=== PATIENT | female | born 1970 ===

== ENCOUNTER 2020-03-17 15:04 | Outpatient (REF) | payer OTHER, SELFPAY | END 2020-03-17 15:05 | disposition home or self-care (01) | LOC: HO.LAB 15:04 | PROVIDERS: Visit Provider Nurse Practitioner Family | DX: L08.9 Local infection of the skin and subcutaneous tissue, unspecified (principal); T14.8XXA Other injury of unspecified body region, initial encounter | CPT/HCPCS: 87071; 87077; 87186; 87205 ==

== ENCOUNTER 2020-03-17 15:14 | Outpatient (REF) | payer OTHER, SELFPAY ==
--- NOTE | 2020-03-17 15:22 | XR_ITS ---
EXAMINATION: Right middle finger CLINICAL INFORMATION: Injury to right middle finger. COMPARISON: None TECHNIQUE: 3 views of the right middle finger. FINDINGS: The bones and soft tissues are normal. No fracture. Alignment is anatomic. Joint spaces are maintained. No radiopaque foreign body. There is no air in the soft tissues. XR/XR finger RT min 2V IMPRESSION: Normal right middle digit.
== END 2020-03-17 15:15 | disposition home or self-care (01) ==
LOC: HO.HMGCX 15:14
PROVIDERS: PCP Nurse Practitioner Family; Visit Provider Nurse Practitioner Family
DX: L08.9 Local infection of the skin and subcutaneous tissue, unspecified (principal); T14.8XXA Other injury of unspecified body region, initial encounter
CPT/HCPCS: 73140

== ENCOUNTER 2020-03-31 10:51 | Outpatient (REF) | payer OTHER, SELFPAY ==
[2020-04-03 06:12] LABS: TS Negative Control Passed; TS Panel A 0; TS Panel B 0; TS Positive Control Passed; TSpotTB Negative (SeeBelow)
== END 2020-03-31 10:52 | disposition home or self-care (01) ==
LOC: HO.HMGCLDS 10:51
PROVIDERS: PCP Nurse Practitioner Family; Referring Provider Nurse Practitioner Family; Visit Provider Nurse Practitioner Family
DX: Z20.828 Contact with and (suspected) exposure to other viral communicable diseases (principal); Z11.1 Encounter for screening for respiratory tuberculosis
CPT/HCPCS: 86481; U0003

== ENCOUNTER → 2020-04-23 10:04 | Outpatient (BNVA) | payer OTHER, SELFPAY | PROVIDERS: PCP Nurse Practitioner Family; Visit Provider Urology | DX: R31.29 Other microscopic hematuria (principal); N20.0 Calculus of kidney | CPT/HCPCS: 52000; 99212 ==

== ENCOUNTER 2020-04-28 10:30 | Outpatient (REF) | payer OTHER, SELFPAY | END 2020-04-28 10:31 | disposition home or self-care (01) | LOC: HO.HMGCLDS 10:30 | PROVIDERS: PCP Nurse Practitioner Family; Visit Provider Internal Medicine | DX: Z20.828 Contact with and (suspected) exposure to other viral communicable diseases (principal) | CPT/HCPCS: C9803; U0003 ==

== ENCOUNTER → 2020-05-27 11:03 | Outpatient (BNVA) | payer OTHER, SELFPAY | PROVIDERS: PCP Nurse Practitioner Family; Visit Provider Physician Assistant | DX: Z76.89 Persons encountering health services in other specified circumstances (principal) ==

== ENCOUNTER 2020-05-29 13:19 | Outpatient (REF) | payer OTHER, SELFPAY | END 2020-05-29 13:20 | disposition home or self-care (01) | LOC: HO.HMGCLDS 13:19 | PROVIDERS: PCP Nurse Practitioner Family; Visit Provider Internal Medicine | DX: Z20.828 Contact with and (suspected) exposure to other viral communicable diseases (principal) | CPT/HCPCS: 36415; U0003 ==

== ENCOUNTER 2020-10-21 12:08 | Outpatient (REF) | payer OTHER, SELFPAY ==
[2020-10-21 14:42] LABS: Alanine Aminotransferase 9 U/L (0-31); Albumin Level 4.4 g/dL (3.5-5.0); Alkaline Phosphatase 124 U/L (39-117); Anion Gap 14 (12-20); Aspartate Amino Transferase 15 U/L (5-31); Bilirubin Total 0.2 mg/dL (0.0-1.0); Blood Urea Nitrogen 8 mg/dL (9-16); Calcium 9.6 mg/dL (8.4-10.2); Carbon Dioxide 25 mmol/L (22-29); Chloride 106 mmol/L (96-108); Cholesterol 207 mg/dL; Estimated Glomerular Filt Rate > 60; Glucose Fasting 88 mg/dL (60-99); HDL Cholesterol 46 mg/dL; LDL Cholesterol Calculated 108 mg/dl; Potassium 4.4 mmol/L (3.3-5.1); Sodium 141 mmol/L (135-145); Triglycerides 269 mg/dL
[2020-10-21 15:07] LABS: TSH reflex Free T4 0.96 uIU/mL (0.32-4.0)
[2020-10-23 23:57] LABS: TS Negative Control Passed; TS Panel A 0; TS Panel B 0; TS Positive Control Passed; TSpotTB Negative (SeeBelow)
== END 2020-10-21 12:09 | disposition home or self-care (01) ==
LOC: HO.HMGCLDS 12:08
PROVIDERS: PCP Nurse Practitioner Family; Visit Provider Nurse Practitioner Family
DX: E78.5 Hyperlipidemia, unspecified (principal); Z13.29 Encounter for screening for other suspected endocrine disorder; Z11.1 Encounter for screening for respiratory tuberculosis; Z01.84 Encounter for antibody response examination
CPT/HCPCS: 36415; 80053; 80061; 84443; 86481

== ENCOUNTER 2020-11-11 10:28 | Outpatient (REF) | payer OTHER, SELFPAY ==
[2020-11-11 14:32] LABS: Alanine Aminotransferase 8 U/L (0-31); Albumin Level 4.3 g/dL (3.5-5.0); Alkaline Phosphatase 114 U/L (39-117); Aspartate Amino Transferase 13 U/L (5-31); Bilirubin Direct < 0.2 mg/dL (0.0-0.5); Bilirubin Total 0.3 mg/dL (0.0-1.0); Gamma Glutamyl Transpeptidase 24 U/L (7-33); Total Protein 6.8 g/dL (6.5-8.0)
[2020-11-12 07:36] LABS: HBS Num1 14.92 mIU/mL (0-7.99); ~Hepatitis B Surface Antibody REACTIVE (Nonreactive)
[2020-11-12 09:57] LABS: Rubella IgG Antibody 6.18 Index
== END 2020-11-11 10:29 | disposition home or self-care (01) ==
LOC: HO.HMGCLDS 10:28
PROVIDERS: PCP Nurse Practitioner Family; Visit Provider Nurse Practitioner Family
DX: Z01.84 Encounter for antibody response examination (principal); R74.8 Abnormal levels of other serum enzymes; Z28.3 Underimmunization status
CPT/HCPCS: 36415; 80076; 82977; 86706; 86735; 86762; 86765; 86787

== ENCOUNTER 2020-12-31 | Outpatient (REF) | payer OTHER, SELFPAY | END 2020-12-31 00:01 | disposition home or self-care (01) | LOC: HO.LNP | PROVIDERS: Visit Provider Internal Medicine | DX: Z20.822 Contact with and (suspected) exposure to COVID-19 (principal) | CPT/HCPCS: U0003; U0005 ==

== ENCOUNTER 2021-01-24 11:22 | Inpatient (IN) | payer OTHER, SELFPAY ==
[2021-01-24] VITALS (10 sets, daily range): BP systolic 105–147; BP diastolic 52–80; PULSE 48–82; RESP 16–20; TEMP 36.4–37.1; O2SAT 97–100; BMI 22.6; BMI 23.4
--- NOTE | ~2021-01-24 | CT_ITS ---
EXAMINATION: CT ABDOMEN AND PELVIS WITH CONTRAST CLINICAL INFORMATION: Epigastric and RUQ pain, US Gallbladder unremarkable COMPARISON: 07/30/2019 TECHNIQUE: Multidetector volumetric imaging was performed from the superior aspect of the liver through the pubic symphysis following administration of 85 mL Omnipaque 300 intravenous contrast. Sagittal and coronal reformatted images were obtained on the technologist workstation.. This CT examination was performed using dose optimization techniques as appropriate, variously including the following: *Automated exposure control *Adjustment of mA and/or kV according to patient size (this includes techniques or standardized protocols for targeted exams where dose is matched to indication/reason for exam; i.e. extremities or head) *Use of iterative reconstruction technique DLP: 486 mGy-cm FINDINGS: LUNG BASES: Bibasilar dependent atelectasis LIVER, GALLBLADDER, AND BILIARY TREE: The liver is normal in size, shape, and attenuation. No focal hepatic lesion or biliary ductal dilatation is present. The gallbladder is unremarkable with no evidence of radiopaque gallstones, gallbladder wall thickening, or obvious pericholecystic inflammatory changes. PANCREAS: Markedly abnormal appearance to the uncinate process and pancreatic head region where there is significant surrounding inflammatory change and fluid. Focal pancreatitis would be suspected. Correlation with amylase and lipase recommended. There is a more normal appearance to the pancreatic body and tail I do not appreciate any pancreatic or biliary ductal dilatation. SPLEEN: Unremarkable. ADRENAL GLANDS: Unremarkable. KIDNEYS AND URETERS: The kidneys are normal in size, shape, and attenuation. No hydronephrosis, hydroureter, or calculi seen. No perinephric stranding. BLADDER: Unremarkable. GASTROINTESTINAL TRACT: The small and large bowel are unremarkable. The appendix is unremarkable. ABDOMINAL WALL: No significant hernia is appreciated. LYMPHOVASCULAR STRUCTURES: No lymphadenopathy. The aorta is unremarkable. PELVIC VISCERA: Unremarkable. OSSEOUS STRUCTURES: Unremarkable. CT/CT abdomen pelvis w con IMPRESSION: Soft tissue stranding in Pancreatic fluid in the region of the uncinate process and pancreatic head on the pancreas. Appearance is most likely due to focal pancreatitis in this location. Correlation with amylase and lipase levels recommended.
--- NOTE | ~2021-01-24 | US_ITS ---
EXAMINATION: US ABDOMEN LIMITED CLINICAL INFORMATION: Right upper quadrant pain. COMPARISON: Previous CT of the abdomen and pelvis July 2019 TECHNIQUE: Real-time imaging of the right upper quadrant abdominal viscera. FINDINGS: PANCREAS: The head and body the pancreas are normal. The tail is not well visualized due to bowel gas. LIVER: Normal. The liver is normal in size. The liver contour is normal. Parenchymal echogenicity is normal. No focal hepatic lesion. There is no intrahepatic biliary duct dilatation seen. GALLBLADDER: The gallbladder is normal in size. No gallstones are seen. There is ring down artifact of the anterior wall of the gallbladder suggestive of adenomyomatosis of the gallbladder wall. There is no pericholecystic fluid. COMMON BILE DUCT: Normal in caliber measuring 0.5 cm in diameter. RIGHT KIDNEY: There is a 9 mm cyst in the upper pole.. No hydronephrosis. No renal calculi.. The kidney measures 9.7 cm in maximum dimension. FREE FLUID: None. US/US abdomen limited IMPRESSION: Adenomyomatosis of the gallbladder wall. No gallstone seen. Small right renal cyst. Limited visualization of the tail the pancreas.
--- NOTE | ~2021-01-24 | XR_ITS ---
EXAMINATION: XR CHEST CLINICAL INFORMATION: Right rib pain COMPARISON: Previous chest and right rib x-rays July 2019 TECHNIQUE: Frontal view of the chest was obtained. FINDINGS: The cardiac and mediastinal contours are normal. The lungs are clear. There is no pleural effusion or pneumothorax. There is a mild curvature of the proximal and mid thoracic spine. Bony structures are otherwise unremarkable. XR/XR chest 1V IMPRESSION: No evidence for acute disease in the chest.
--- NOTE | 2021-01-24 11:41 | ECG_ITS ---
Test Reason : EPIGASTRIC Blood Pressure : / mmHG Vent. Rate : 048 BPM Atrial Rate : 048 BPM P-R Int : 148 ms QRS Dur : 074 ms QT Int : 432 ms P-R-T Axes : 053 060 063 degrees QTc Int : 385 ms Sinus bradycardia Otherwise normal ECG When compared with ECG of 30-JUL-2019 13:54, No significant change was found Referred By: Generic ED Physician Electronically Signed By:TOÑITO BAR
[2021-01-24 13:55] LABS: MANUAL DIFF FLAG NO
[2021-01-24 13:57] LABS: Glucose Urine UA NEG (NEG); Leukocyte Esterase Urine NEG (NEG); Nitrite Urine NEG (NEG); PH 5.5 (5.0-8.0); Specific Gravity - Urine 1.015 (1.005-1.025); Urine Blood 2+ (NEG); Urine Ketones NEG (NEG); Urine Protein NEG (NEG-TRACE)
[2021-01-24 13:58] LABS: Appearance Urine CLEAR; Color Urine YELLOW
[2021-01-24 14:01] LABS: Basophils Absolute Auto 0.1 X10*3/uL (0.0-0.2); Basophils Percent Auto 0.4 % (0-2); Eosinophils Absolute Auto 0.1 X10*3/uL (0.0-0.4); Eosinophils Percent Auto 0.5 % (0-4); Hematocrit 47.9 % (37-47); Imm Gran Abs Auto 0.03 X10*3/uL (0.00-0.03); Imm Gran Pct Auto 0.3 % (0.0-0.4); Lymphocytes Absolute Auto 3.3 X10*3/uL (1.2-4.9); Lymphocytes Percent Auto 29.9 % (20-40); Mean Corpuscular HGB Conc 33.4 g/dl (31.0-35.0); Mean Corpuscular Hemoglobin 29.9 pg (27.0-33.0); Mean Corpuscular Volume 89.5 fL (80-98); Mean Platelet Volume 10.7 fL (9.4-12.3); Monocytes Absolute Auto 0.6 X10*3/uL (0.1-1.2); Monocytes Percent Auto 4.9 % (2-11); Neutrophils Absolute Auto 7.1 X10*3/uL (2.0-8.3); Platelet Count 283 X10*3/uL (160-400); Red Blood Count 5.35 X10*6/uL (4.20-5.50); Red Cell Distribution Width 13.6 % (11.0-16.0); UPreg QC Valid YES; Urine Pregnancy NEGATIVE (NEGATIVE); White Blood Count 11.2 X10*3/uL (4.8-10.8)
[2021-01-24 14:05] LABS: WBC Urine 0 /HPF (0-4)
[2021-01-24 14:13] LABS: Anion Gap 14 (12-20); Blood Urea Nitrogen 8 mg/dL (9-16); Calcium 10.3 mg/dL (8.4-10.2); Carbon Dioxide 28 mmol/L (22-29); Chloride 105 mmol/L (96-108); Creatinine Clr Calc Pharmacy 81.9; Estimated Glomerular Filt Rate > 60; Glucose Random 97 mg/dL (60-115); Lipase 163 U/L (8-78); Magnesium 2.4 mg/dL (1.6-2.6); Potassium 4.3 mmol/L (3.3-5.1); Sodium 143 mmol/L (135-145)
[2021-01-24 14:19] LABS: Troponin-I High Sensitivity < 3.5 ng/L (<3.5-17.0)
--- NOTE | 2021-01-24 14:23 | ED.ABDPAIN ---
HPI - Abdominal Pain General Chief Complaint: Abdominal Pain Stated Complaint: CHEST PAIN Time Seen by Provider: 01/24/21 14:01 Source: patient Mode of arrival: ambulatory Limitations: no limitations History of Present Illness HPI narrative: 51-year-old female presents with epigastric pain and right upper quadrant pain for the past 4 days. Patient states she has had the same pain since August, and it comes and goes, but the pain has been constant for the last 4 days. The pain is worse with eating and with lying flat. She describes it as epigastric and right upper quadrant radiating to right shoulder. Patient has not been able to eat for the last 2 days, she has had 2 bouts of vomiting and diarrhea twice today. Reports the pain radiates to her right upper chest and head has been constant for the last 4 days She has had no belly surgeries, and is postmenopausal. She went to her primary today who sent her here. Both parents of pancreatic cancer in their early 60s. Patient has been afebrile. Patient states her watch has been alerting her to a low heart rate yesterday, and last night when she slept. She is not on any beta blockers and has never seen Cardiology. Patient does not drink alcohol, she has been sober for 15 years, she was an alcoholic MD elicited complaint: abdominal pain Pertinent past history: kidney stones Onset (ago): day(s) (4) Pain Consistency: constant Location: chest, epigastric and RUQ Severity: moderate Pain scale (0-10): 6 Quality: cramping and sharp Radiation: back Migration to: no migration Exacerbating factors: eating and other (Lying flat) Relieving factors: nothing Associated symptoms: nausea, vomiting and diarrhea Related Data Previous Rx's Medication Instructions Recorded clobetasol 0.05 % topical cream 1 applic TOPICAL BID 7 Days #15 g 03/29/20 cholecalciferol (vitamin D3) 50 50 mcg PO DAILY 90 Days #90 tab 05/29/20 mcg (2,000 unit) tablet clobetasol 0.05 % topical cream 1 appl TOPICAL BID 14 Days #15 g 05/29/20 albuterol sulfate 90 mcg/actuation 2 puff PO Q4H PRN #8.5 g 08/06/20 aerosol inhaler quetiapine 25 mg tablet 25 mg PO BID 90 Days #180 tab 08/06/20 quetiapine 300 mg tablet (Seroquel) 300 mg PO BEDTIME 90 Days #90 tab 08/06/20 omeprazole 20 mg capsule,delayed 20 mg PO DAILY #30 cap 10/14/20 release nicotine 21 mg/24 hr daily 1 patch TOPICAL DAILY #28 patch 10/27/20 transdermal patch nicotine 14 mg/24 hr daily 1 patch TRANSDERMAL DAILY 28 Days 01/19/21 transdermal patch #28 ea Allergies Allergy/AdvReac Type Severity Reaction Status Date / Time No Known Allergies Allergy Verified 01/24/21 11:33 [No Known Allergies*] Review of Systems Constitutional: Denies body ache(s), Denies chills, Reports fatigue, Denies fever(s), Reports headache(s), Reports malaise and Denies weakness Eyes: Denies blurry vision and Denies diplopia Denies dizziness, Denies otalgia, Reports headache(s), Reports sinus pain, Denies sinus pressure and Denies sore throat Cardiovascular: Reports chest pain, Reports Epigastric Pain, Denies syncope, Denies leg edema, Denies lightheadedness, Denies Loss of Consciousness, Denies palpitations and Denies dyspnea Comments: Slow heart rate Respiratory: Denies chest congestion, Denies cough and Denies dyspnea Gastrointestinal: Reports abdominal pain, Denies hematochezia, Denies constipation, Reports diarrhea, Reports nausea and Reports vomiting Comments: Unable to eat due to nausea and abdominal pain for 2 days Genitourinary: Denies abnormal vaginal bleeding, Denies hematuria, Denies urinary incontinence, Denies urinary hesitancy and Denies vaginal discharge Comments: Postmenopausal Musculoskeletal: Reports no additional musculoskeletal complaints Skin/Breast: Denies erythema and Denies rash Denies confusion, Denies dizziness, Denies syncope, Reports headache(s) and Denies weakness Psychiatric: Denies anxiety, Denies confusion and Denies depression Endocrine: Reports fatigue and Denies palpitations Physical Exam Vital Signs: Vital Signs: Last Vital Signs Temp 97.5 F 01/24/21 21:52 Pulse 57 01/24/21 21:52 Resp 20 01/24/21 21:57 BP 147/77 H 01/24/21 21:52 Pulse Ox 98 01/24/21 21:52 Body Mass Index 22.6 Const: General: alert and awake; No confusion Nutritional Appearance: well nourished Orientation/consciousness: patient oriented x3 and No confusion Limitations: no limitations HENMT: Head: Yes normal to inspection, Yes normocephalic and Yes atraumatic Ears: hearing grossly normal bilaterally, external ears normal, TM's normal bilaterally and EAC's normal General nose exam: Normal external nose present Face and sinus: Yes normal facial exam and Yes sinuses nontender Mouth: Normal oral and palatal mucosa present Throat: Yes posterior oropharynx normal Eyes: Conjunctivae: conjunctivae normal Pupils: Equal, round and reactive pupils present EOM: EOMs intact bilaterally Neck: Neck: Yes full ROM, Yes no lymphadenopathy and Yes supple Resp: Effort & Inspection: normal respiratory effort and able to speak in complete sentences Auscultation: clear to auscultation bilaterally, no crackles, no rales, no rhonchi and no wheezes Cardio: Rate: bradycardic Rhythm: regular rhythm Heart sounds: S1 normal heart sound present and S2 normal heart sound present GI: Inspection: Yes normal to inspection Palpation (GI): Soft to palpation, Tenderness to palpation present (GI) in the epigastrum, in the RUQ, Suárez's sign positive and with rebound tenderness, Guarding due to palpation present (GI) in the RUQ and other (epigastric) and not rigid Percussion: Yes normal to percussion Auscultation: Hypoactive bowel sounds present Rectal Exam - Female: deferred Skin: General skin exam: no rashes or lesions noted Neuro: General: patient oriented x3 and No confusion Cranial nerves: Yes Equal, round and reactive pupils present Extrem: General: Yes normal to inspection and Yes full ROM Psych: Appearance: grossly normal Affect: normal affect Attitude: cooperative Thought process: Normal thought process present Course Course Course Narrative: 51-year-old female presents with 4 days of epigastric and right upper quadrant pain, worse when she eats, pain radiates to her back. On exam, patient is afebrile but is bradycardic. Patient is tender and guarding in her epigastrium and right upper quadrant. EKG shows sinus Jason at a rate of 48. Negative troponin. BMP is significant for elevated calcium, I ordered liver panel to correct with albumin. White count of 11.2. Lipase 163. Chest x-ray is negative. Gave fluids, Zofran, morphine, will start with ultrasound of gallbladder, get liver function tests. If that is negative will proceed to CT abdomen pelvis to rule out pancreatitis. Reevaluation(s) Reevaluation #1: Calcium corrected is only 9.7. LFTs are normal, bilirubin normal, alk-phos elevated at 138. Ultrasound shows adenomyomatosis of the gallbladder wall. Got TSH due to sinus Jason, TSH is normal at 0.96. Will get CT abdomen pelvis. Ct abd/pelvis: Soft tissue stranding in ? Pancreatic fluid in the region of the uncinate process and pancreatic head on the pancreas. Appearance is most likely due to focal pancreatitis in this location. Correlation with amylase and lipase levels recommended. Will admit, as pt cannot eat and has pain MDM - Abdominal Pain Lab Data Result diagrams: 01/24/21 13:47 01/24/21 13:47 Labs: Lab Results 01/24/21 01/24/21 01/24/21 Range/Units 13:47 13:47 13:47 WBC 11.2 H (4.8-10.8) X10*3/uL RBC 5.35 (4.20-5.50) X10*6/uL Hgb 16.0 (12.0-16.0) g/dl Hct 47.9 H (37-47) % MCV 89.5 (80-98) fL MCH 29.9 (27.0-33.0) pg MCHC 33.4 (31.0-35.0) g/dl RDW 13.6 (11.0-16.0) % Plt Count 283 (160-400) X10*3/uL MPV 10.7 (9.4-12.3) fL Immature Gran % (Auto) 0.3 (0.0-0.4) % Neut % (Auto) 64.0 (45-73) % Lymph % (Auto) 29.9 (20-40) % [place] % (Auto) 4.9 (2-11) % Eos % (Auto) 0.5 (0-4) % Baso % (Auto) 0.4 (0-2) % Lymph # (Auto) 3.3 (1.2-4.9) X10*3/uL [place] # (Auto) 0.6 (0.1-1.2) X10*3/uL Eos # (Auto) 0.1 (0.0-0.4) X10*3/uL Baso # (Auto) 0.1 (0.0-0.2) X10*3/uL Abs Immat Gran (auto) 0.03 (0.00-0.03) X10*3/uL Absolute Neuts (auto) 7.1 (2.0-8.3) X10*3/uL Absolute Nucleated RBC 0.000 (0.0-0.012) X10*3/uL Nucleated RBC % (auto) 0.0 (0.0-0.2) /100WBC Sodium 143 (135-145) mmol/L Potassium 4.3 (3.3-5.1) mmol/L Chloride 105 (96-108) mmol/L Carbon Dioxide 28 (22-29) mmol/L Anion Gap 14 (12-20) BUN 8 L (9-16) mg/dL Creatinine 0.76 (0.5-1.4) mg/dL Estim Creat Clear Calc 81.9 Estimated GFR > 60 Random Glucose 97 (60-115) mg/dL Calcium 10.3 H D (8.4-10.2) mg/dL Magnesium 2.4 (1.6-2.6) mg/dL Total Bilirubin 0.4 (0.0-1.0) mg/dL Direct Bilirubin < 0.2 (0.0-0.5) mg/dL AST 15 (5-31) U/L ALT 10 (0-31) U/L Alkaline Phosphatase 138 H D (39-117) U/L Troponin I High Sens < 3.5 (<3.5-17.0) ng/L Total Protein 7.8 (6.5-8.0) g/dL Albumin 4.8 (3.5-5.0) g/dL Lipase 163 H (8-78) U/L TSH 0.96 (0.32-4.0) uIU/mL Urine Color Urine Appearance Urine pH (5.0-8.0) Ur Specific [place] (1.005-1.025) Urine Protein (NEG-TRACE) MG/DL Urine Glucose (UA) (NEG) MG/DL Urine Ketones (NEG) MG/DL Urine Blood (NEG) Urine Nitrite (NEG) Ur Leukocyte Esterase (NEG) Urine RBC (0) /HPF Urine WBC (0-4) /HPF Ur Squamous Epith Cells /LPF Urine Bacteria /LPF Urine Test (NEGATIVE) 01/24/21 01/24/21 Range/Units 13:47 13:47 WBC (4.8-10.8) X10*3/uL RBC (4.20-5.50) X10*6/uL Hgb (12.0-16.0) g/dl Hct (37-47) % MCV (80-98) fL MCH (27.0-33.0) pg MCHC (31.0-35.0) g/dl RDW (11.0-16.0) % Plt Count (160-400) X10*3/uL MPV (9.4-12.3) fL Immature Gran % (Auto) (0.0-0.4) % Neut % (Auto) (45-73) % Lymph % (Auto) (20-40) % [place] % (Auto) (2-11) % Eos % (Auto) (0-4) % Baso % (Auto) (0-2) % Lymph # (Auto) (1.2-4.9) X10*3/uL [place] # (Auto) (0.1-1.2) X10*3/uL Eos # (Auto) (0.0-0.4) X10*3/uL Baso # (Auto) (0.0-0.2) X10*3/uL Abs Immat Gran (auto) (0.00-0.03) X10*3/uL Absolute Neuts (auto) (2.0-8.3) X10*3/uL Absolute Nucleated RBC (0.0-0.012) X10*3/uL Nucleated RBC % (auto) (0.0-0.2) /100WBC Sodium (135-145) mmol/L Potassium (3.3-5.1) mmol/L Chloride (96-108) mmol/L Carbon Dioxide (22-29) mmol/L Anion Gap (12-20) BUN (9-16) mg/dL Creatinine (0.5-1.4) mg/dL Estim Creat Clear Calc Estimated GFR Random Glucose (60-115) mg/dL Calcium (8.4-10.2) mg/dL Magnesium (1.6-2.6) mg/dL Total Bilirubin (0.0-1.0) mg/dL Direct Bilirubin (0.0-0.5) mg/dL AST (5-31) U/L ALT (0-31) U/L Alkaline Phosphatase (39-117) U/L Troponin I High Sens (<3.5-17.0) ng/L Total Protein (6.5-8.0) g/dL Albumin (3.5-5.0) g/dL Lipase (8-78) U/L TSH (0.32-4.0) uIU/mL Urine Color YELLOW Urine Appearance CLEAR Urine pH 5.5 (5.0-8.0) Ur Specific [place] 1.015 (1.005-1.025) Urine Protein NEG (NEG-TRACE) MG/DL Urine Glucose (UA) NEG (NEG) MG/DL Urine Ketones NEG (NEG) MG/DL Urine Blood 2+ H (NEG) Urine Nitrite NEG (NEG) Ur Leukocyte Esterase NEG (NEG) Urine RBC 1-4 (0) /HPF Urine WBC 0 (0-4) /HPF Ur Squamous Epith Cells NONE /LPF Urine Bacteria NONE /LPF Urine Test NEGATIVE (NEGATIVE) ECG Data Interpretation: Sinus with a rate of 48. MO interval 148, QRS 74, QTC 385. Normal axis. No ST elevations or depressions, Discharge Plan Discharge Clinical Impression: Acute pancreatitis Qualifiers: Pancreatitis type: unspecified pancreatitis type Acute pancreatitis complication: unspecified Qualified Code(s): K85.90 - Acute pancreatitis without necrosis or infection, unspecified Patient Disposition: Admitted As Inpatient Interventions: Admission Worksheet (ED) Last Done: 01/24/21 21:44 Discharge Date/Time: 01/24/21 21:44 [facility] Past Medical History Medical History Encounter for screening colonoscopy Kidney stones Microscopic hematuria Screening for colon cancer Social History Social History (Updated 05/27/20 @ 12:06 by Stephanie Gandara PA-C) Household Members: Children Housing: Apartment Alcohol intake: never Patient Tobacco Use Status: Never used Tobacco Tobacco use type: Cigarette Cigarettes Per Day: 1 Use of substances other than those prescribed or required for medical reasons: No Advance Directives: Yes Advance Directives Information Provided: Yes Advance Directives on File: No Current occupational status: employed Current occupation: [employer]
[2021-01-24] MEDS: 0.9 % Sodium Chloride 1,000 ML 999 ML IV ×2 (15:03→19:19)
[2021-01-24] MEDS: ondansetron HCL 4 MG/2 ML VIAL IVPUSH (15:03)
[2021-01-24] MEDS: Morphine Sulfate 4 MG/ML CARTRIDGE IVPUSH ×2 (15:03→17:44)
[2021-01-24 15:30] LABS: Alanine Aminotransferase 10 U/L (0-31); Albumin Level 4.8 g/dL (3.5-5.0); Alkaline Phosphatase 138 U/L (39-117); Aspartate Amino Transferase 15 U/L (5-31); Bilirubin Direct < 0.2 mg/dL (0.0-0.5); Bilirubin Total 0.4 mg/dL (0.0-1.0); Total Protein 7.8 g/dL (6.5-8.0)
[2021-01-24 15:56] LABS: Thyroid Stimulating Hormone 0.96 uIU/mL (0.32-4.0)
[2021-01-24] MEDS: iohexoL 350 MG/ML 100 ML INFUS..BTL IV (18:06)
--- NOTE | 2021-01-24 19:28 | PM.IMHP ---
History of Present Illness Date of Service: 01/24/21 Chief Complaint: Abdominal pain 51-year-old female with a past medical history of hypothyroidism, tobacco dependence, onychomycosis, of abdominal pain. Patient reports that she has abdominal pain intermittently for some time but over the past few days it has been gradually worsening and not improving; associated nausea and vomiting. Denies any blood in the vomitus. Denies any diarrhea. Denies any fever chills cough. Denies any recent travel or sick contacts. Denies taking [id number] pain medications Denies drinking alcohol-sober for 15 years. Review of all other systems is negative except mentioned above ER course: Per ER team patient noted of epigastric tenderness; CT scan showed mild pancreatitis; elevated alk-phos; calcium was 10.3 ; triglycerides in October were 269'; Admitted to the hospital for further management [facility] Medical History Encounter for screening colonoscopy Kidney stones Microscopic hematuria Screening for colon cancer Social History (Updated 05/27/20 @ 12:06 by ANANYA ManciaC) Household Members: Children Housing: Apartment Alcohol intake: never Patient Tobacco Use Status: Never used Tobacco Tobacco use type: Cigarette Cigarettes Per Day: 1 Use of substances other than those prescribed or required for medical reasons: No Advance Directives: Yes Advance Directives Information Provided: Yes Advance Directives on File: No Current occupational status: employed 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[employer] Meds Allergies Allergy/AdvReac Type Severity Reaction Status Date / Time No Known Allergies Allergy Verified 01/24/21 11:33 [No Known Allergies*] Active Medications: Current Medications Generic Name Dose Route Start Last Admin Trade Name Freq PRN Reason Stop Dose Admin Acetaminophen 650 mg 01/24/21 19:25 Acetaminophen 325 Mg Tablet PO Q6H PRN Pain, Mild (Pain Scale 1-3) Hydromorphone HCl 0.5 mg 01/24/21 19:25 Hydromorphone Hcl 0.5 Mg/0.5 Ml Syringe IVPUSH Q4H PRN Pain, Severe (Pain Scale 7-10) Protocol Sodium Chloride 1,000 mls @ 999 mls/hr 01/24/21 19:00 01/24/21 19:19 Ns IV 01/24/21 20:00 999 mls/hr .Q1H1M MICHEL Administration Dextrose/Sodium Chloride 1,000 mls @ 100 mls/hr 01/24/21 19:30 D51/2ns IVCONT .Q10H MICHEL Melatonin 6 mg 01/24/21 19:25 Melatonin 3 Mg Tablet PO BEDTIME PRN Insomnia Senna 17.2 mg 01/24/21 19:25 Sennosides 8.6 Mg Tablet PO BEDTIME PRN Constipation Sodium Chloride 3 ml 01/25/21 00:00 0.9 % Sodium Chloride Flush 3 Ml Syringe IVFLUSH QSHIFT [facility] Physical Exam Vital Signs and Narrative: Vital Signs: Last Vital Signs Temp 98.1 F 01/24/21 19:20 Pulse 61 01/24/21 19:20 Resp 16 01/24/21 19:20 BP 133/52 L 01/24/21 19:20 Pulse Ox 99 01/24/21 19:20 Body Mass Index 22.6 Gen: Appears be in no acute distress HEENT: NCAT, Moist mucosa. Pulmonary: Vesicular breath sounds, fair air entry CVS: Normal S1-S2 Abdomen: BS+, Soft, tender in epigastrium; no guarding no rigidity Extremities: Warm well perfused Neuro: Alert and awake. Results Labs CBC and Chem 7: 01/24/21 13:47 01/24/21 13:47 Labs: Laboratory Results - last 24 hr 01/24/21 01/24/21 01/24/21 13:47 13:47 13:47 MCV 89.5 MCH 29.9 MCHC 33.4 RDW 13.6 Plt Count 283 MPV 10.7 Immature Gran % (Auto) 0.3 Neut % (Auto) 64.0 Lymph % (Auto) 29.9 [place] % (Auto) 4.9 Eos % (Auto) 0.5 Baso % (Auto) 0.4 Lymph # (Auto) 3.3 [place] # (Auto) 0.6 Eos # (Auto) 0.1 Baso # (Auto) 0.1 Abs Immat Gran (auto) 0.03 Absolute Neuts (auto) 7.1 Absolute Nucleated RBC 0.000 Nucleated RBC % (auto) 0.0 Anion Gap 14 Estim Creat Clear Calc 81.9 Estimated GFR > 60 Random Glucose 97 Calcium 10.3 H D Magnesium 2.4 Total Bilirubin 0.4 Direct Bilirubin < 0.2 AST 15 ALT 10 Alkaline Phosphatase 138 H D Troponin I High Sens < 3.5 Total Protein 7.8 Albumin 4.8 Lipase 163 H TSH 0.96 Urine Color Urine Appearance Urine pH Ur Specific [place] Urine Protein Urine Glucose (UA) Urine Ketones Urine Blood Urine Nitrite Ur Leukocyte Esterase Urine RBC Urine WBC Ur Squamous Epith Cells Urine Bacteria Urine Test 01/24/21 01/24/21 13:47 13:47 MCV MCH MCHC RDW Plt Count MPV Immature Gran % (Auto) Neut % (Auto) Lymph % (Auto) [place] % (Auto) Eos % (Auto) Baso % (Auto) Lymph # (Auto) [place] # (Auto) Eos # (Auto) Baso # (Auto) Abs Immat Gran (auto) Absolute Neuts (auto) Absolute Nucleated RBC Nucleated RBC % (auto) Anion Gap Estim Creat Clear Calc Estimated GFR Random Glucose Calcium Magnesium Total Bilirubin Direct Bilirubin AST ALT Alkaline Phosphatase Troponin I High Sens Total Protein Albumin Lipase TSH Urine Color YELLOW Urine Appearance CLEAR Urine pH 5.5 Ur Specific [place] 1.015 Urine Protein NEG Urine Glucose (UA) NEG Urine Ketones NEG Urine Blood 2+ H Urine Nitrite NEG Ur Leukocyte Esterase NEG Urine RBC 1-4 Urine WBC 0 Ur Squamous Epith Cells NONE Urine Bacteria NONE Urine Test NEGATIVE Imaging Radiologist's Impressions: Impressions Chest X-Ray 01/24/21 11:41 IMPRESSION: No evidence for acute disease in the chest. Abdomen Ultrasound 01/24/21 14:22 IMPRESSION: Adenomyomatosis of the gallbladder wall. No gallstone seen. Small right renal cyst. Limited visualization of the tail the pancreas. Abdomen/Pelvis CT 01/24/21 15:41 IMPRESSION: Soft tissue stranding in Pancreatic fluid in the region of the uncinate process and pancreatic head on the pancreas. Appearance is most likely due to focal pancreatitis in this location. Correlation with amylase and lipase levels recommended. Assessment and Plan (1) Acute pancreatitis: Qualifiers: Acute pancreatitis complication: unspecified Pancreatitis type: unspecified pancreatitis type Qualified Code(s): K85.90 - Acute pancreatitis without necrosis or infection, unspecified Status: Acute 51-year-old female with a past medical history of hypothyroidism, tobacco dependence, GERD presented to the emergency complaint of abdominal pain noted to have pancreatitis. Admitted for further management. Acute pancreatitis: Unclear etiology; but noted to have mildly elevated calcium of 10.3-the levels are to designate as the cause with her diagnosis of pancreatitis. Patient denies alcohol use-mentions she is sober for 15 years Pt reports pancreatic cancer in the family. Triglycerides were within the normal limits on recently Will also obtain tried with those levels again Noted a mildly elevated [id number]-[id number]-mdeno upper quadrant ultrasound showed adenomyomatosis of the gallbladder wall. Will consult Gastroenterology for further recommendations Pain control IV fluids Supportive care DVT prophylaxis: SCD boots Code status: Full code Quality Stroke Does the patient have a stroke diagnosis?: No VTE Prior VTE?: No VTE Risk Level:: Medical - moderate - high VTE Device Contraindication: N/A - Device Ordered VTE Drug Contraindication: Treatment Not Indicated
[2021-01-24 20:20] LABS: COVID-19 Test Negative (Negative); IDNOW Serial# 9DD0AD1C
[2021-01-24 21:21] LABS: Amylase 276 U/L (28-100)
[2021-01-24] MEDS: HYDROmorphone HCl 0.5 MG/0.5 ML SYRINGE IVPUSH (21:57)
[2021-01-24] MEDS: Dextrose 5 % and 0.45 % NaCl 1,000 ML 100 ML IVCONT (21:58)
[2021-01-24] MEDS: QUEtiapine Fumarate 300 MG TABLET PO (22:23)
[2021-01-25 03:01] VITALS: RESP 18
[2021-01-25] MEDS: HYDROmorphone HCl 0.5 MG/0.5 ML SYRINGE IVPUSH ×5 (03:01→22:46)
[2021-01-25 06:39] LABS: MANUAL DIFF FLAG NO
[2021-01-25] MEDS: Dextrose 5 % and 0.45 % NaCl 1,000 ML 100 ML IVCONT (06:42)
[2021-01-25 06:44] LABS: Basophils Percent Auto 0.5 % (0-2); Eosinophils Absolute Auto 0.2 X10*3/uL (0.0-0.4); Eosinophils Percent Auto 2.5 % (0-4); Hemoglobin 13.4 g/dl (12.0-16.0); Imm Gran Abs Auto 0.01 X10*3/uL (0.00-0.03); Imm Gran Pct Auto 0.2 % (0.0-0.4); Lymphocytes Absolute Auto 2.8 X10*3/uL (1.2-4.9); Lymphocytes Percent Auto 47.6 % (20-40); Mean Corpuscular HGB Conc 33.5 g/dl (31.0-35.0); Mean Corpuscular Hemoglobin 29.9 pg (27.0-33.0); Mean Corpuscular Volume 89.3 fL (80-98); Mean Platelet Volume 10.9 fL (9.4-12.3); Monocytes Absolute Auto 0.4 X10*3/uL (0.1-1.2); Monocytes Percent Auto 6.6 % (2-11); Neutrophils Absolute Auto 2.5 X10*3/uL (2.0-8.3); Neutrophils Percent Auto 42.6 % (45-73); Platelet Count 206 X10*3/uL (160-400); Red Blood Count 4.48 X10*6/uL (4.20-5.50); Red Cell Distribution Width 13.5 % (11.0-16.0); White Blood Count 5.9 X10*3/uL (4.8-10.8)
[2021-01-25 07:17] LABS: Cholesterol 163 mg/dL; HDL Cholesterol 32 mg/dL; LDL Cholesterol Calculated 108 mg/dl; Triglycerides 115 mg/dL
[2021-01-25 07:19] LABS: Magnesium 2.2 mg/dL (1.6-2.6)
[2021-01-25 07:30] LABS: Anion Gap 13 (12-20); Blood Urea Nitrogen 7 mg/dL (9-16); Carbon Dioxide 22 mmol/L (22-29); Chloride 113 mmol/L (96-108); Creatinine Clr Calc Pharmacy 85.3; Estimated Glomerular Filt Rate > 60; Glucose Random 97 mg/dL (60-115); Potassium 4.5 mmol/L (3.3-5.1); Sodium 143 mmol/L (135-145)
[2021-01-25 07:38] LABS: Calcium 8.8 mg/dL (8.4-10.2)
[2021-01-25 07:45] VITALS: BP 111/61; PULSE 68; RESP 16; TEMP 36.1; O2SAT 100
[2021-01-25] MEDS: 0.9 % Sodium Chloride Flush 3 ML SYRINGE IVFLUSH ×2 (08:56→20:29)
[2021-01-25] MEDS: Lactated Ringers 1,000 ML 150 ML IVCONT ×3 (08:56→20:29)
--- NOTE | 2021-01-25 11:10 | HO.PM.IMPN ---
Subjective Subjective Date of Service: 01/25/21 Interval History: a bit better, has some appetite, but still with sifnificant epigastric pain Cardiovascular Cardiovascular: Reports no additional cardiovascular complaints Respiratory Respiratory: Reports no additional respiratory complaints Physical Exam Vital Signs: Vital Signs: Last Vital Signs Temp 97 F 01/25/21 07:45 Pulse 68 01/25/21 07:45 Resp 16 01/25/21 07:45 BP 111/61 01/25/21 07:45 Pulse Ox 100 01/25/21 07:45 Body Mass Index 23.4 General: AO X 3, no acute distress Resp: CTA bilateral CVS: S1,S2,RRR GI: soft, epigastric tenderness, non distended Neuro: motor grossly intact Psych: appropriate affect Objective Data Active Medications Acetaminophen (Acetaminophen 325 Mg Tablet) 650 mg PO Q6H PRN PRN Reason: Pain, Mild (Pain Scale 1-3) Hydromorphone HCl (Hydromorphone Hcl 0.5 Mg/0.5 Ml Syringe) 0.5 mg IVPUSH Q4H PRN; Protocol PRN Reason: Pain, Severe (Pain Scale 7-10) Last Admin: 01/25/21 08:55 Dose: 0.5 mg Documented by: BLANCA Lactated Ringer's (Lr) 1,000 mls @ 150 mls/hr IVCONT .Q6H40M [facility] Last Admin: 01/25/21 08:56 Dose: 150 mls/hr Documented by: BROB Melatonin (Melatonin 3 Mg Tablet) 6 mg PO BEDTIME PRN PRN Reason: Insomnia Nicotine (Nicotine 14 Mg Patch.Td24) 14 mg TRANSDERMA DAILY [facility] Omeprazole (Omeprazole 20 Mg Capsule.Dr) 20 mg PO DAILY@0630 [facility] Quetiapine Fumarate (Quetiapine Fumarate 300 Mg Tablet) 300 mg PO BEDTIME [facility] Last Admin: 01/24/21 22:23 Dose: 300 mg Documented by: ANDERM Quetiapine Fumarate (Quetiapine Fumarate 25 Mg Tablet) 25 mg PO BID [facility] Senna (Sennosides 8.6 Mg Tablet) 17.2 mg PO BEDTIME PRN PRN Reason: Constipation Sodium Chloride (0.9 % Sodium Chloride Flush 3 Ml Syringe) 3 ml IVFLUSH QSHIFT [facility] Last Admin: 01/25/21 08:56 Dose: 3 ml Documented by: BLANCA Labs CBC & Chem 7: 01/25/21 05:35 01/25/21 05:35 Labs: Laboratory Results - last 24 hr 01/24/21 01/24/21 01/24/21 13:47 13:47 13:47 MCV 89.5 MCH 29.9 MCHC 33.4 RDW 13.6 Plt Count 283 MPV 10.7 Immature Gran % (Auto) 0.3 Neut % (Auto) 64.0 Lymph % (Auto) 29.9 [place] % (Auto) 4.9 Eos % (Auto) 0.5 Baso % (Auto) 0.4 Lymph # (Auto) 3.3 [place] # (Auto) 0.6 Eos # (Auto) 0.1 Baso # (Auto) 0.1 Abs Immat Gran (auto) 0.03 Absolute Neuts (auto) 7.1 Absolute Nucleated RBC 0.000 Nucleated RBC % (auto) 0.0 Anion Gap 14 Estim Creat Clear Calc 81.9 Estimated GFR > 60 Random Glucose 97 Calcium 10.3 H D Magnesium 2.4 Total Bilirubin 0.4 Direct Bilirubin < 0.2 AST 15 ALT 10 Alkaline Phosphatase 138 H D Troponin I High Sens < 3.5 Total Protein 7.8 Albumin 4.8 Triglycerides Cholesterol LDL Cholesterol, Calc HDL Cholesterol Amylase Lipase 163 H TSH 0.96 Urine Color Urine Appearance Urine pH Ur Specific [place] Urine Protein Urine Glucose (UA) Urine Ketones Urine Blood Urine Nitrite Ur Leukocyte Esterase Urine RBC Urine WBC Ur Squamous Epith Cells Urine Bacteria Urine Test COVID-19 ([facility]ARAT) COVID-19 Clin Com 01/24/21 01/24/21 01/24/21 13:47 13:47 19:33 MCV MCH MCHC RDW Plt Count MPV Immature Gran % (Auto) Neut % (Auto) Lymph % (Auto) [place] % (Auto) Eos % (Auto) Baso % (Auto) Lymph # (Auto) [place] # (Auto) Eos # (Auto) Baso # (Auto) Abs Immat Gran (auto) Absolute Neuts (auto) Absolute Nucleated RBC Nucleated RBC % (auto) Anion Gap Estim Creat Clear Calc Estimated GFR Random Glucose Calcium Magnesium Total Bilirubin Direct Bilirubin AST ALT Alkaline Phosphatase Troponin I High Sens Total Protein Albumin Triglycerides Cholesterol LDL Cholesterol, Calc HDL Cholesterol Amylase Lipase TSH Urine Color YELLOW Urine Appearance CLEAR Urine pH 5.5 Ur Specific [place] 1.015 Urine Protein NEG Urine Glucose (UA) NEG Urine Ketones NEG Urine Blood 2+ H Urine Nitrite NEG Ur Leukocyte Esterase NEG Urine RBC 1-4 Urine WBC 0 Ur Squamous Epith Cells NONE Urine Bacteria NONE Urine Test NEGATIVE COVID-19 ([facility]ARAT) Negative COVID-19 Clin Com See Note 01/24/21 01/25/21 01/25/21 20:52 05:35 05:35 MCV 89.3 MCH 29.9 MCHC 33.5 RDW 13.5 Plt Count 206 D MPV 10.9 Immature Gran % (Auto) 0.2 Neut % (Auto) 42.6 L Lymph % (Auto) 47.6 H [place] % (Auto) 6.6 Eos % (Auto) 2.5 Baso % (Auto) 0.5 Lymph # (Auto) 2.8 [place] # (Auto) 0.4 Eos # (Auto) 0.2 Baso # (Auto) 0.0 Abs Immat Gran (auto) 0.01 Absolute Neuts (auto) 2.5 Absolute Nucleated RBC 0.000 Nucleated RBC % (auto) 0.0 Anion Gap 13 Estim Creat Clear Calc 85.3 Estimated GFR > 60 Random Glucose 97 Calcium 8.8 D Magnesium Total Bilirubin Direct Bilirubin AST ALT Alkaline Phosphatase Troponin I High Sens Total Protein Albumin Triglycerides Cholesterol LDL Cholesterol, Calc HDL Cholesterol Amylase 276 H Lipase TSH Urine Color Urine Appearance Urine pH Ur Specific [place] Urine Protein Urine Glucose (UA) Urine Ketones Urine Blood Urine Nitrite Ur Leukocyte Esterase Urine RBC Urine WBC Ur Squamous Epith Cells Urine Bacteria Urine Test COVID-19 (BHARAT) COVID-19 Clin Com 01/25/21 01/25/21 05:35 05:35 MCV MCH MCHC RDW Plt Count MPV Immature Gran % (Auto) Neut % (Auto) Lymph % (Auto) [place] % (Auto) Eos % (Auto) Baso % (Auto) Lymph # (Auto) [place] # (Auto) Eos # (Auto) Baso # (Auto) Abs Immat Gran (auto) Absolute Neuts (auto) Absolute Nucleated RBC Nucleated RBC % (auto) Anion Gap Estim Creat Clear Calc Estimated GFR Random Glucose Calcium Magnesium 2.2 Total Bilirubin Direct Bilirubin AST ALT Alkaline Phosphatase Troponin I High Sens Total Protein Albumin Triglycerides 115 Cholesterol 163 D LDL Cholesterol, Calc 108 HDL Cholesterol 32 D Amylase Lipase TSH Urine Color Urine Appearance Urine pH Ur Specific [place] Urine Protein Urine Glucose (UA) Urine Ketones Urine Blood Urine Nitrite Ur Leukocyte Esterase Urine RBC Urine WBC Ur Squamous Epith Cells Urine Bacteria Urine Test COVID-19 ([facility]ARAT) COVID-19 Clin Com Assessment and Plan (1) Acute pancreatitis: Status: Acute Assessment and Plan: 51F presented with epigastric pain acute pancreatitis unclear etiology advance to low fat change fluids to LR pain control GI eval Quality Stroke Does the patient have a stroke diagnosis?: No VTE Prior VTE?: No VTE Risk Level:: Medical - moderate - high VTE Device Contraindication: N/A - Device Ordered VTE Drug Contraindication: Treatment Not Indicated
[2021-01-25 11:18] VITALS: BP 110/62; PULSE 47; RESP 16; TEMP 36.1; O2SAT 99
[2021-01-25] MEDS: Nicotine 14 MG PATCH.TD24 TRANSDERMA (11:24)
--- NOTE | 2021-01-25 13:29 | P.EN_ITS ---
Event Note Date of Service: 01/25/21 Event Note: GI Consult-Full note dictated Imp: 51 yo female with a distant hx of EtOH abuse with a reported 15 years of sobriety presenting with approx 6 months of intermittent abdominal pain. She is now admitted with worsening and persistent pain with the finding of acute hicks creatitis on CT. She appears well but is still having pain and tenderness after trying to eat earlier today. Aside from tenderness, her abdominal exam is soft with good BS and nondistended. Her w/u is negative for gallstones and biliary disease. She has a normal TG level and is on no meds that would cause pancreatitis. She reports that both parents had pancreatic cancer in their 60's. Diff dx: R/O autoimmune pancreatitis-labs are already pending for that, R/O tumor Rec: Supportive care, make NPO again until symptoms resolve, check F/U lipase in AM, and check CA 19-9 level. I advised her that she will need a F/U CT scan in 4-6 weeks to be sure there is no underlying mass in the head of the pancreas. She may need an eventual Endoscopic U/S of the pancreas. D/W patient in detail and she is comfortable with this plan. Thanks
--- NOTE | 2021-01-25 13:31 | MHC.CM.PN ---
CM MET WITH PT WHO REPORTS SHE LIVES ALONE AND IS INDEPENDENT. PT HAS NO SERVICES AND NO DME. PT CONFIRMS HER PCP IS KADY NICOLE. PT COMPLETED A HCP TODAY NAMING HER SONS, MARZENA ([phone]) AND VLAD ([phone]) HER PRIMARY AND ALTERNATE AGENTS RESPECTIVELY. CURRENT DC PLAN IS HOME WITH NO SERVICES PT WILL SELF ARRANGE TRANSPORT
[2021-01-25 15:14] VITALS: BP 107/68; PULSE 72; RESP 18; TEMP 36.6; O2SAT 98
--- NOTE | 2021-01-25 19:32 | CONS_ITS ---
DATE OF SERVICE: 01/25/2021 REASON FOR CONSULTATION: Pancreatitis. HISTORY OF PRESENT ILLNESS: The patient is a 51-year-old female who describes approximately 5 or 6 months of intermittent episodes of abdominal pain involving the epigastric area that can last for several days at a time. During this time, she gets anorectic and has some vomiting. She denies any signs of GI bleeding. During this time, her weight has fluctuated by about 10 to 20 pounds. She has never noticed any jaundice nor fevers. The episodes occur about once a week. In between the episodes, she reports that she did not really have any pain and is able to eat more comfortably. She developed worsening pain earlier this week and finally came to the ER. She was found to have mild elevation of her lipase with inflammatory changes in the region of the head of the pancreas and was admitted. Overnight and today she still has epigastric pain, particularly after trying to eat today. She has not had a bowel movement and has had no further vomiting. She does relate a distant history of alcohol abuse, but reports sobriety for about 15 years now. She is not on any new medication and takes only Seroquel for depression. She does relate a family history of both parents having had pancreatic cancer in their 60s. Her workup has also revealed normal triglyceride levels and normal gallbladder ultrasound with normal bile ducts. MEDICATIONS: Medications at home, vitamins and Seroquel. Her current medications here include acetaminophen, Dilaudid p.r.n., nicotine patch, omeprazole, Zofran p.r.n., and Seroquel. PAST MEDICAL HISTORY: Tubal ligation, alcohol abuse with sobriety for 15 years. She denies any preceding history of pancreatitis, heart disease, diabetes, stroke, lung disease, or kidney disease. She does have a history of depression. SOCIAL HISTORY: She does smoke. Distant history of alcohol abuse as above with sobriety for 15 years. FAMILY HISTORY: Both parents had reported pancreatic cancer in her 60s. REVIEW OF SYSTEMS: CONSTITUTIONAL: She has been feeling well, but has had the intermittent episodes of abdominal pain as described above. SKIN: No rash, no pruritus. CARDIAC: No chest pain. PULMONARY: No coughing, no hemoptysis. GI: As above. PHYSICAL EXAMINATION: CONSTITUTIONAL: Again, the patient is a pleasant, alert, comfortable well-appearing female, in no distress. SKIN: Warm and dry. HEENT: Nonjaundiced. Anicteric sclerae. NECK: Supple. CHEST: Clear. CARDIAC: Normal S1 and S2. ABDOMEN: Soft and nondistended. Bowel sounds are present. She does have epigastric tenderness to palpation. EXTREMITIES: Without edema. LABORATORY DATA: As above. Normal CBC with a white blood cell count of 5.9 today compared to 11.2 yesterday; hemoglobin 13.4 today, compared to 16.0 yesterday. Normal electrolytes; BUN creatinine 0.7. Triglyceride level 115. Amylase 276 yesterday and lipase 163 yesterday. Normal TSH. LFTs were normal except for alkaline phosphatase 138. Calcium 10.3 yesterday and 8.8 today. She had a CAT scan of the abdomen describing inflammatory changes in the uncinate process and pancreatic head with some associated fluid, but without any sign of cyst, necrosis, nor pancreatic ductal dilatation. The liver and biliary tree appeared normal. Abdominal ultrasound was negative for gallstones nor biliary disease. Common bile duct was 5 mm. IMPRESSION: The patient presents with what appears to be acute pancreatitis although has been having intermittent pain for about 5 or 6 months now. The etiology of this is not clear given no sign of gallstones, normal bile ducts, and reported sobriety for about 15 years. She is not on any suspicious medication and has a normal triglyceride level. She does report a family history of both parents having had pancreatic cancer. At this point, given her ongoing pain and tenderness, I would recommend she be made n.p.o. again. She will have followup laboratories in the morning. Once her pain resolves and the lipase normalizes, then I would recommend slowly advance her to diet. She will clearly need a followup CAT scan in 4-6 weeks to be sure there is no underlying mass given the otherwise negative workup for the pancreatitis and her significant family history of both parents having a colon cancer. She has already had laboratories sent for autoimmune pancreatitis with IgG level and subtyping pending. Given the family history and no clear etiology of the pancreatitis, I have ordered a CA-19-9 level for the morning. She may ultimately need an eventual endoscopic ultrasound of the pancreas as well if the workup is negative, and/or the followup CAT scan shows any suspicious lesion. This has been discussed with the patient in detail. MD KEYONA Velazquez/JANE / [id number]
[2021-01-25] MEDS: QUEtiapine Fumarate 25 MG TABLET PO (20:28)
[2021-01-25] MEDS: QUEtiapine Fumarate 300 MG TABLET PO (20:28)
[2021-01-25] MEDS: ondansetron HCL 4 MG/2 ML VIAL IVPUSH (20:29)
[2021-01-25 23:59] VITALS: BP 95/52; PULSE 56; RESP 18; TEMP 37; O2SAT 98
[2021-01-26] MEDS: Lactated Ringers 1,000 ML 150 ML IVCONT ×3 (05:05→17:59)
[2021-01-26] MEDS: HYDROmorphone HCl 0.5 MG/0.5 ML SYRINGE IVPUSH (05:06)
[2021-01-26] MEDS: Omeprazole 20 MG CAPSULE.DR PO (05:06)
[2021-01-26 06:18] LABS: Hematocrit 39.6 % (37-47); Hemoglobin 13.7 g/dl (12.0-16.0); Mean Corpuscular HGB Conc 34.6 g/dl (31.0-35.0); Mean Corpuscular Hemoglobin 30.6 pg (27.0-33.0); Mean Corpuscular Volume 88.4 fL (80-98); Mean Platelet Volume 10.7 fL (9.4-12.3); Platelet Count 195 X10*3/uL (160-400); Red Blood Count 4.48 X10*6/uL (4.20-5.50); Red Cell Distribution Width 13.2 % (11.0-16.0); White Blood Count 7.1 X10*3/uL (4.8-10.8)
[2021-01-26 06:30] LABS: Anion Gap 12 (12-20); Blood Urea Nitrogen 7 mg/dL (9-16); Calcium 9.3 mg/dL (8.4-10.2); Carbon Dioxide 26 mmol/L (22-29); Chloride 108 mmol/L (96-108); Creatinine Clr Calc Pharmacy 81.9; Estimated Glomerular Filt Rate > 60; Glucose Fasting 88 mg/dL (60-99); Potassium 3.9 mmol/L (3.3-5.1); Sodium 142 mmol/L (135-145)
[2021-01-26 06:32] LABS: Lipase 141 U/L (8-78)
[2021-01-26 07:57] VITALS: BP 133/68; PULSE 58; RESP 20; TEMP 36.9
[2021-01-26] MEDS: QUEtiapine Fumarate 25 MG TABLET PO ×2 (09:21→15:49)
[2021-01-26] MEDS: Nicotine 14 MG PATCH.TD24 TRANSDERMA (09:21)
[2021-01-26] MEDS: Acetaminophen 325 MG TABLET 650 MG PO (09:27)
[2021-01-26 11:07] VITALS: BP 116/67; PULSE 63; RESP 20; TEMP 36.2; O2SAT 99
--- NOTE | 2021-01-26 12:23 | P.PNIM_ITS ---
Subjective Subjective Date of Service: 01/26/21 Interval History: did not do well with solids yesterday but asking for clears today Cardiovascular Cardiovascular: Reports no additional cardiovascular complaints Respiratory Respiratory: Reports no additional respiratory complaints Physical Exam Vital Signs: Vital Signs: Last Vital Signs Temp 97.1 F 01/26/21 11:07 Pulse 63 01/26/21 11:07 Resp 20 01/26/21 11:07 BP 116/67 01/26/21 11:07 Pulse Ox 99 01/26/21 11:07 Body Mass Index 23.4 General: AO X 3, no acute distress Resp:? CTA bilateral CVS: S1,S2,RRR GI: soft, epigastric tenderness, non distended Neuro:? motor grossly intact Psych: appropriate affect Objective Data Active Medications Acetaminophen (Acetaminophen 325 Mg Tablet) 650 mg PO Q6H PRN PRN Reason: Pain, Mild (Pain Scale 1-3) Last Admin: 01/26/21 09:27 Dose: 650 mg Documented by: CARLA Hydromorphone HCl (Hydromorphone Hcl 1 Mg/Ml Syringe) 0.5 mg IVPUSH Q4H PRN; Protocol PRN Reason: Pain, Severe (Pain Scale 7-10) Lactated Ringer's (Lr) 1,000 mls @ 150 mls/hr IVCONT .Q6H40M [facility] Last Admin: 01/26/21 11:08 Dose: 150 mls/hr Documented by: CARLA Melatonin (Melatonin 3 Mg Tablet) 6 mg PO BEDTIME PRN PRN Reason: Insomnia Nicotine (Nicotine 14 Mg Patch.Td24) 14 mg TRANSDERMA DAILY [facility] Last Admin: 01/26/21 09:21 Dose: 14 mg Documented by: CARLA Omeprazole (Omeprazole 20 Mg Capsule.Dr) 20 mg PO DAILY@0630 [facility] Last Admin: 01/26/21 05:06 Dose: 20 mg Documented by: AMIRA Ondansetron HCl (Ondansetron Hcl 4 Mg/2 Ml Vial) 4 mg IVPUSH Q6H PRN PRN Reason: nasuea Last Admin: 01/25/21 20:29 Dose: 4 mg Documented by: AMIRA Quetiapine Fumarate (Quetiapine Fumarate 300 Mg Tablet) 300 mg PO BEDTIME [facility] Last Admin: 01/25/21 20:28 Dose: 300 mg Documented by: AMIRA Quetiapine Fumarate (Quetiapine Fumarate 25 Mg Tablet) 25 mg PO BID [facility] Last Admin: 01/26/21 09:21 Dose: 25 mg Documented by: CARLA Senna (Sennosides 8.6 Mg Tablet) 17.2 mg PO BEDTIME PRN PRN Reason: Constipation Sodium Chloride (0.9 % Sodium Chloride Flush 3 Ml Syringe) 3 ml IVFLUSH QSHIFT [facility] Last Admin: 01/26/21 09:21 Dose: Not Given Documented by: CARLA Non-Admin Reason: IV Running Labs CBC & Chem 7: 01/26/21 05:48 01/26/21 05:48 Labs: Laboratory Results - last 24 hr 01/26/21 01/26/21 01/26/21 05:48 05:48 05:48 MCV 88.4 MCH 30.6 MCHC 34.6 RDW 13.2 Plt Count 195 MPV 10.7 Absolute Nucleated RBC 0.000 Nucleated RBC % (auto) 0.0 Anion Gap 12 Estim Creat Clear Calc 81.9 Estimated GFR > 60 Fasting Glucose 88 Calcium 9.3 Lipase 141 H Assessment and Plan (1) Acute pancreatitis: Status: Acute Assessment and Plan: 51F presented with epigastric pain acute pancreatitis unclear etiology, follow up IgG subtypes, Ca19-9 (strong family history of pancreatic ca), GI following did not tolerate solids yesterday, asking for clears today continue IVF pain control Quality Stroke Does the patient have a stroke diagnosis?: No VTE Prior VTE?: No VTE Risk Level:: Medical - moderate - high VTE Device Contraindication: N/A - Device Ordered VTE Drug Contraindication: Treatment Not Indicated
[2021-01-26 13:25] VITALS: RESP 16
[2021-01-26] MEDS: HYDROmorphone HCl 1 MG/ML SYRINGE 0.5 MG IVPUSH ×2 (13:25→19:29)
[2021-01-26] MEDS: 0.9 % Sodium Chloride Flush 3 ML SYRINGE IVFLUSH (13:25)
[2021-01-26 15:25] VITALS: BP 128/67; PULSE 58; RESP 18; TEMP 36.6; O2SAT 99
--- NOTE | 2021-01-26 18:11 | PC.NURSE ---
PATIENT GIVEN PERMISSION TO SHOWER AND HAVE DECAF COFFEE PER MD.
[2021-01-26 19:06] VITALS: BP 123/78; PULSE 73; RESP 18; TEMP 36.4; O2SAT 97
[2021-01-26 19:29] VITALS: RESP 18
[2021-01-26] MEDS: QUEtiapine Fumarate 300 MG TABLET PO (20:54)
[2021-01-27] VITALS (10 sets, daily range): BP systolic 121–146; BP diastolic 57–80; PULSE 60–85; RESP 16–18; TEMP 36.3–37.1; O2SAT 97–99
[2021-01-27] MEDS: Lactated Ringers 1,000 ML 150 ML IVCONT ×2 (02:13→09:58)
[2021-01-27] MEDS: HYDROmorphone HCl 1 MG/ML SYRINGE 0.5 MG IVPUSH ×6 (02:13→22:05)
[2021-01-27] MEDS: Omeprazole 20 MG CAPSULE.DR PO (06:19)
[2021-01-27 06:24] LABS: Hematocrit 41.9 % (37-47); Hemoglobin 14.3 g/dl (12.0-16.0); Mean Corpuscular HGB Conc 34.1 g/dl (31.0-35.0); Mean Corpuscular Hemoglobin 30.2 pg (27.0-33.0); Mean Corpuscular Volume 88.4 fL (80-98); Mean Platelet Volume 10.8 fL (9.4-12.3); Platelet Count 223 X10*3/uL (160-400); Red Blood Count 4.74 X10*6/uL (4.20-5.50); Red Cell Distribution Width 13.2 % (11.0-16.0); White Blood Count 5.8 X10*3/uL (4.8-10.8)
[2021-01-27 06:36] LABS: Anion Gap 9 (12-20); Blood Urea Nitrogen 5 mg/dL (9-16); Calcium 9.5 mg/dL (8.4-10.2); Carbon Dioxide 29 mmol/L (22-29); Chloride 109 mmol/L (96-108); Creatinine Clr Calc Pharmacy 79.8; Estimated Glomerular Filt Rate > 60; Glucose Fasting 104 mg/dL (60-99); Potassium 4.4 mmol/L (3.3-5.1); Sodium 143 mmol/L (135-145)
[2021-01-27] MEDS: QUEtiapine Fumarate 25 MG TABLET PO ×2 (09:06→15:00)
[2021-01-27] MEDS: Nicotine 14 MG PATCH.TD24 TRANSDERMA (09:06)
[2021-01-27 12:16] LABS: Carbohydrate Antigen 19-9 20 U/mL (<34)
--- NOTE | 2021-01-27 16:31 | HO.PM.IMPN ---
Subjective Subjective Date of Service: 01/27/21 Interval History: Complaining of abdominal pain worse with eating currently on clear liquid diet, willing to try solids, no nausea no vomiting, no fevers no chest Review of Systems General no headache, no dizziness no fever, no chills. CVS no chest pain, no palpitation. Respiratory no cough, no sob. Gastrointestinal no nausea, no vomiting, epigastric pain Physical Exam Vital Signs: Vital Signs: Last Vital Signs Temp 98.8 F 01/27/21 15:41 Pulse 64 01/27/21 15:41 Resp 18 01/27/21 15:41 BP 127/69 01/27/21 15:41 Pulse Ox 99 01/27/21 15:41 Body Mass Index 23.4 General no acute distress. Neck no JVD. CVS regular rate rhythm, Respiratory lungs clear to auscultation, no respiratory distress Gastrointestinal abdomen soft, epigastric tenderness to palpation,bowel sounds audible, no guarding , no rigidity. Extremities no edema. Neuro nonfocal , speech clear. Skin no rash Objective Data Active Medications Acetaminophen (Acetaminophen 325 Mg Tablet) 650 mg PO Q6H PRN PRN Reason: Pain, Mild (Pain Scale 1-3) Last Admin: 01/26/21 09:27 Dose: 650 mg Documented by: CARLA Hydromorphone HCl (Hydromorphone Hcl 1 Mg/Ml Syringe) 0.5 mg IVPUSH Q4H PRN; Protocol PRN Reason: Pain, Severe (Pain Scale 7-10) Last Admin: 01/27/21 14:59 Dose: 0.5 mg Documented by: AMANDA Lactated Ringer's (Lr) 1,000 mls @ 100 mls/hr IVCONT .Q10H [facility] Last Admin: 01/27/21 09:58 Dose: 150 mls/hr Documented by: AMANDA Melatonin (Melatonin 3 Mg Tablet) 6 mg PO BEDTIME PRN PRN Reason: Insomnia Nicotine (Nicotine 14 Mg Patch.Td24) 14 mg TRANSDERMA DAILY [facility] Last Admin: 01/27/21 09:06 Dose: 14 mg Documented by: AMANDA Omeprazole (Omeprazole 20 Mg Capsule.Dr) 20 mg PO DAILY@0630 [facility] Last Admin: 01/27/21 06:19 Dose: 20 mg Documented by: ROSITA Ondansetron HCl (Ondansetron Hcl 4 Mg/2 Ml Vial) 4 mg IVPUSH Q6H PRN PRN Reason: nasuea Last Admin: 01/25/21 20:29 Dose: 4 mg Documented by: AMIRA Quetiapine Fumarate (Quetiapine Fumarate 300 Mg Tablet) 300 mg PO BEDTIME [facility] Last Admin: 01/26/21 20:54 Dose: 300 mg Documented by: ROSITA Quetiapine Fumarate (Quetiapine Fumarate 25 Mg Tablet) 25 mg PO BID@0900,1600 [facility] Last Admin: 01/27/21 15:00 Dose: 25 mg Documented by: AMANDA Senna (Sennosides 8.6 Mg Tablet) 17.2 mg PO BEDTIME PRN PRN Reason: Constipation Sodium Chloride (0.9 % Sodium Chloride Flush 3 Ml Syringe) 3 ml IVFLUSH QSHIFT [facility] Last Admin: 01/27/21 15:01 Dose: Not Given Documented by: AMANDA Non-Admin Reason: IV Running Labs CBC & Chem 7: 01/27/21 05:15 01/27/21 05:15 Labs: Laboratory Results - last 24 hr 01/26/21 01/27/21 01/27/21 05:48 05:15 05:15 MCV 88.4 MCH 30.2 MCHC 34.1 RDW 13.2 Plt Count 223 MPV 10.8 Absolute Nucleated RBC 0.000 Nucleated RBC % (auto) 0.0 Anion Gap 9 L Estim Creat Clear Calc 79.8 Estimated GFR > 60 Fasting Glucose 104 H Calcium 9.5 CA 19-9 Antigen 20 Assessment and Plan (1) Acute pancreatitis: Status: Acute (2) Smoker: Status: Acute (3) Dyslipidemia: Status: Acute (4) Microscopic hematuria: Status: Acute (5) Kidney stones: Status: Acute Assessment and Plan: 51F presented with epigastric pain acute pancreatitis unclear etiology, IgG subtypes pending,Ca19-9 pending checked due to (strong family history of pancreatic ca), Persistent epigastric discomfort on clears today will advance to low-fat diet, continue IVF Lipase remains elevated around 140. pain control, patient tolerates solids will discharge home to have outpatient endoscopic ultrasound of pancreas to have close outpatient follow-up with Gastroenterology Tobacco use disorder continue nicotine Quality Stroke Does the patient have a stroke diagnosis?: No VTE Prior VTE?: No VTE Risk Level:: Medical - moderate - high VTE Device Contraindication: N/A - Device Ordered VTE Drug Contraindication: Treatment Not Indicated
[2021-01-27 20:51] LABS: Immunoglobulin G Subclass 1 311 mg/dL (382-929); Immunoglobulin G Subclass 2 219 mg/dL (241-700); Immunoglobulin G Subclass 3 39 mg/dL (22-178); Immunoglobulin G Subclass 4 29.8 mg/dL (4-86); Immunoglobulin G Total 648 mg/dL (600-1640)
[2021-01-27] MEDS: QUEtiapine Fumarate 300 MG TABLET PO (21:10)
[2021-01-27] MEDS: Lactated Ringers 1,000 ML 100 ML IVCONT (21:10)
[2021-01-28 05:43] VITALS: RESP 16
[2021-01-28] MEDS: HYDROmorphone HCl 1 MG/ML SYRINGE 0.5 MG IVPUSH ×2 (05:43→10:07)
[2021-01-28] MEDS: Lactated Ringers 1,000 ML 100 ML IVCONT (05:44)
[2021-01-28 07:49] VITALS: BP 113/68; PULSE 75; RESP 19; TEMP 36.9; O2SAT 99
[2021-01-28 10:07] VITALS: RESP 16
[2021-01-28] MEDS: QUEtiapine Fumarate 25 MG TABLET PO (10:08)
[2021-01-28] MEDS: Nicotine 14 MG PATCH.TD24 TRANSDERMA (10:08)
[2021-01-28] MEDS: 0.9 % Sodium Chloride Flush 3 ML SYRINGE IVFLUSH (10:08)
[2021-01-28] MEDS: Omeprazole 20 MG CAPSULE.DR PO (10:08)
--- NOTE | 2021-01-28 11:52 | MHC.CM.PN ---
Female 51 DX Pancreatitis. She is discharged home today. No services have been ordered. Patient has arranged for private transportation.
--- NOTE | 2021-01-28 16:44 | PM.DS ---
DS: Providers Provider Date of Service: 01/28/21 Date of admission: 01/24/21 19:25 Primary care physician: HARLEEN Shannon Consults: 01/24/21 19:27 Consult to Gastroenterology Routine Consulting Provider: Miah Kendrick Reason for consultation: Pancreatitis- unclear etiology DS: Diagnosis Discharge Diagnosis (1) Acute pancreatitis: Status: Acute (2) Smoker: Status: Acute (3) Dyslipidemia: Status: Acute (4) Microscopic hematuria: Status: Acute (5) Kidney stones: Status: Acute DS: Summary Hospital Course Hospital Course: History of presenting illness Chief Complaint: Abdominal pain 51-year-old female with a past medical history of hypothyroidism, tobacco dependence, onychomycosis, of abdominal pain.? Patient reports that she has abdominal pain intermittently for some time but over the past few days it has been gradually worsening and not improving; associated nausea and vomiting.? Denies any blood in the vomitus. Denies any diarrhea. Denies any fever chills cough.? Denies any recent travel or sick contacts. Denies taking [id number] pain medications Denies drinking alcohol-sober for 15 years. Review of all other systems is negative except mentioned above ER course: Per ER team patient noted of epigastric tenderness; CT scan showed mild pancreatitis; elevated alk-phos; calcium was 10.3 ; triglycerides in October were 269'; Admitted to the hospital for further management Hospital course 51F presented with epigastric pain and diagnosed to have acute pancreatitis of unclear etiology, no history of alcohol use,normal triglyceride, normal LFTs, IgG subtypes pending,Ca19-9 is 20, patient treated with IV fluids analgesic,Abdominal pain improved currently tolerating low-fat diet, recommended outpatient follow-up with Dr. Kendrick for possible outpatient endoscopic ultrasound of pancreas. Tobacco use disorder continue nicotine Time Spent with Patient Time attestation: Total time spent providing and/or coordinating discharge services: Discharge coordination time: Greater than 30 minutes Quality: Stroke Does the patient have a stroke diagnosis?: No Physical Exam Vital Signs: Vital Signs: Last Vital Signs Temp 98.4 F 01/28/21 07:49 Pulse 75 01/28/21 07:49 Resp 16 01/28/21 10:07 BP 113/68 01/28/21 07:49 Pulse Ox 99 01/28/21 07:49 Body Mass Index 23.4 General? no acute distress.? Neck? n o JVD. CVS? regula r rate rhythm, Res piratory lungs manolo ar to auscultation , no respiratory d istress Gastrointe stinal abdomen sof t, nontender, jamari l sounds audible, no guarding , no r igidity. Extremiti es no edema. Neuro nonfocal , speech clear. Skin no ra sh DS: Data Data Completed and Pending Labs on day of discharge: Laboratory Results - last 24 hr 01/25/21 05:35 IgG Total 648 IgG Subclass 1 311 L IgG Subclass 2 219 L IgG Subclass 3 39 IgG Subclass 4 29.8 Discharge Plan Discharge Patient Disposition: Home, Self-Care Discharge Diagnosis: Acute pancreatitis Referrals: Tony Delong FNP- [Primary Care Provider] - 02/02/21 4:30 pm (You have a primary care follow up appointment scheduled on February 02 at 4:30 pm. Please call your doctor's office if you need to reschedule.) Discharge Medications: Continued cholecalciferol (vitamin D3) 50 mcg (2,000 unit) tablet 50 mcg PO DAILY 90 Days Qty: 90 RF: 2 albuterol sulfate 90 mcg/actuation HFA aerosol inhaler 2 puff PO Q4H PRN (Reason: shortness of breath or wheezing) Qty: 8.5 RF: 8 quetiapine 25 mg tablet 25 mg PO BID 90 Days Qty: 180 RF: 1 quetiapine [Seroquel] 300 mg tablet 300 mg PO BEDTIME 90 Days Qty: 90 RF: 1 omeprazole 20 mg capsule,delayed release(DR/EC) 20 mg PO DAILY RF: 0 nicotine 14 mg/24 hr patch 24 hour 1 patch transdermal DAILY 28 Days Qty: 28 RF: 0 Discharge Orders: Discharge Order (Routine); Ordered 01/28/21 Ordered By: Esme Yang Diet: low fat, low cholesterol Activity on Discharge: As tolerated Stand Alone Forms: Patient Portal Discharge page Care Plan Goals: Follow low-fat diet, continue nicotine patch Health Concerns: Continue all home medication as before Plan of Treatment: Outpatient follow-up with primary care physician and Dr. Kendrick in 1 week Assessment: As above Discharge Date/Time: 01/28/21 12:31
== END 2021-01-28 12:31 | disposition home or self-care (01) | DRG 282 ==
LOC: HO.ED 19:28 → HO.EDOVER 19:51 → HO.IMC 20:12
PROVIDERS: Internal Medicine; Physician Assistant; Admitting Provider Hospitalist; Emergency Provider Student in an Organized Health Care Education/Training Program; PCP Nurse Practitioner Family; Visit Provider Hospitalist
DX: K85.90 Acute pancreatitis without necrosis or infection, unspecified (principal); E78.5 Hyperlipidemia, unspecified; F10.11 Alcohol abuse, in remission; R31.29 Other microscopic hematuria; F17.210 Nicotine dependence, cigarettes, uncomplicated; Z71.6 Tobacco abuse counseling; Z87.442 Personal history of urinary calculi; Z20.822 Contact with and (suspected) exposure to COVID-19; Z79.899 Other long term (current) drug therapy
CPT/HCPCS: 36415; 71045; 74177; 76705; 80048; 80061; 80076; 81001; 81025; 82150; 82784; 83690; 83735; 84443; 84484; 85025; 85027; 86301; 87635; 93005; 96361; 96374; 96375; 96376; 99285; J1170; J2270; J2405; Q9967

== ENCOUNTER 2021-02-10 08:06 | Outpatient (REF) | payer OTHER, SELFPAY ==
--- NOTE | ~2021-02-10 | US_ITS ---
EXAMINATION: US THYROID CLINICAL INFORMATION: Thyroid nodule. COMPARISON: None TECHNIQUE: Linear transducer grayscale and color Doppler examination with attention to the region of the thyroid. FINDINGS: SIZE: Measurements of the thyroid lobes and nodules are given in sagittal, anteroposterior and transverse dimensions respectively. Right Thyroid Lobe: 6.1 x 1.6 x 1.5 cm, volume 7.7 mL. Parenchyma: The gland echotexture is homogeneous. Thyroid vascularity is normal. Left Thyroid Lobe: 5.2 x 1.6 x 1.5 cm, volume 6.6 mL. Parenchyma: The gland echotexture is homogeneous. Thyroid vascularity is normal. Isthmus: 0.3 cm in maximum AP dimension. Estimated total number of nodules greater than or equal to 1 cm: 0. 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 Location: Left upper pole. Size: 0.6 x 0.3 x 0.5 cm, volume 0.05 mL. Nodule characteristics: Composition: Cystic(0). ACR TI-RADS total points: 0 ACR TI-RADS category: 1 NODES: No lymphadenopathy is seen in the tissue surrounding the thyroid gland. US/US thyroid IMPRESSION: Normal size thyroid gland. Solitary small cystic left thyroid nodule. ACR TI-RADS RECOMMENDATION REFERENCE: Ultrasound-guided fine-needle aspiration, followup ultrasound, no further follow up. * TR1 (0 point) and TR 2 (2 points): No FNA or follow up * TR3 (3 points): FNA if more than or equal to 2.5 cm in maximum dimension, followup ultrasound in 1, 3 and 5 years if 1.5 to 2.4 cm in maximum dimension. * TR4 (4-6 points): FNA if more than or equal to 1.5 cm in maximum dimension, followup ultrasound in 1, 2, 3 and 5 years if 1 to 1.4 cm in maximum dimension. * TR5 (more than or equal to 7 points): FNA if more than or equal to 1 cm in maximum dimension, followup ultrasound every year for 5 years if 0.5 to 0.9 cm in maximum dimension. * TR3, TR4 or TR5 nodules that are below the size threshold for follow up receive no follow up.
[2021-02-10 11:30] LABS: Appearance Urine CLEAR; Color Urine YELLOW; Glucose Urine UA NEG (NEG); Leukocyte Esterase Urine NEG (NEG); Nitrite Urine NEG (NEG); PH 5.5 (5.0-8.0); Specific Gravity - Urine 1.025 (1.005-1.025); UACC Culture Trigger NO; Urine Blood 2+ (NEG); Urine Ketones NEG (NEG); Urine Protein NEG (NEG-TRACE)
[2021-02-10 12:09] LABS: Alanine Aminotransferase 10 U/L (0-31); Albumin Level 4.3 g/dL (3.5-5.0); Alkaline Phosphatase 118 U/L (39-117); Anion Gap 11 (12-20); Aspartate Amino Transferase 14 U/L (5-31); Bilirubin Total 0.3 mg/dL (0.0-1.0); Blood Urea Nitrogen 9 mg/dL (9-16); Calcium 9.7 mg/dL (8.4-10.2); Carbon Dioxide 26 mmol/L (22-29); Chloride 109 mmol/L (96-108); Cholesterol 222 mg/dL; Estimated Glomerular Filt Rate > 60; Glucose Fasting 98 mg/dL (60-99); HDL Cholesterol 51 mg/dL; LDL Cholesterol Calculated 151 mg/dl; Sodium 142 mmol/L (135-145); Total Protein 6.9 g/dL (6.5-8.0); Triglycerides 100 mg/dL
[2021-02-10 12:18] LABS: TSH reflex Free T4 1.24 uIU/mL (0.32-4.0)
[2021-02-10 12:23] LABS: WBC Urine 0-2 /HPF (0-4)
[2021-02-10 12:24] LABS: Mucus Urine 1+ /LPF; RBC Urine 0-2 /HPF (0); Squamous Epithelial Cell Urine TRACE /LPF
[2021-02-11 08:18] LABS: HBS Num1 18.36 mIU/mL (0-7.99); Hepatitis A Antibody IgM 0.18 Index (0-0.79); ~HepC Num1 0.12 S/CO (0.00-0.79); ~Hepatitis A Antibody IgM Nonreactive (Nonreactive); ~Hepatitis B Surface Antibody REACTIVE (Nonreactive); ~Hepatitis C Antibody Nonreactive (Nonreactive)
[2021-02-11 08:32] LABS: HBsAGNum1 0.19 S/CO (0.00-0.99); Hepatitis B Core Antibody Nonreactive (Nonreactive); Hepatitis B Surface Antigen Negative (Negative)
[2021-02-12 06:11] LABS: Rubella IgG Antibody 5.93 Index
== END 2021-02-10 08:07 | disposition home or self-care (01) ==
LOC: HO.HMGCLDS 08:06
PROVIDERS: PCP Nurse Practitioner Family; Visit Provider Internal Medicine
DX: Z00.00 Encounter for general adult medical examination without abnormal findings (principal); Z20.822 Contact with and (suspected) exposure to COVID-19; E04.1 Nontoxic single thyroid nodule; Z28.3 Underimmunization status
CPT/HCPCS: 36415; 76536; 80053; 80061; 81001; 84443; 86704; 86706; 86709; 86735; 86762; 86765; 86803; 87340; C9803; U0003; U0005

== ENCOUNTER 2021-02-21 14:12 | Emergency (ER) | payer OTHER, SELFPAY ==
[2021-02-21 14:37] VITALS: BP 148/76; PULSE 51; RESP 16; TEMP 36.9; O2SAT 100; BMI 22.6
[2021-02-21] MEDS: Ondansetron ODT 4 MG TAB.RAPDIS TRANSLINGU (14:40)
[2021-02-21 16:25] LABS: Hematocrit 46.2 % (37-47); Hemoglobin 15.8 g/dl (12.0-16.0); Mean Corpuscular HGB Conc 34.2 g/dl (31.0-35.0); Mean Corpuscular Hemoglobin 30.4 pg (27.0-33.0); Mean Platelet Volume 10.3 fL (9.4-12.3); Platelet Count 261 X10*3/uL (160-400); Red Blood Count 5.19 X10*6/uL (4.20-5.50); Red Cell Distribution Width 13.7 % (11.0-16.0); White Blood Count 15.5 X10*3/uL (4.8-10.8)
[2021-02-21 16:50] LABS: Anion Gap 13 (12-20); Blood Urea Nitrogen 8 mg/dL (9-16); Carbon Dioxide 25 mmol/L (22-29); Chloride 107 mmol/L (96-108); Creatinine Clr Calc Pharmacy 73.3; Estimated Glomerular Filt Rate > 60; Glucose Random 116 mg/dL (60-115); Lipase 125 U/L (8-78); Potassium 4.2 mmol/L (3.3-5.1); Sodium 141 mmol/L (135-145)
--- NOTE | 2021-02-21 17:49 | ED.ABDPAIN ---
HPI - Abdominal Pain General Chief Complaint: Abdominal Pain Stated Complaint: pancreatis Time Seen by Provider: 02/21/21 17:31 History of Present Illness HPI narrative: Patient is a 51-year-old female presents today with having abdominal pain. The pain is epigastric in nature radiates to the back. There is no bowel urinary incontinence. No fever no chills. Positive nausea. Patient had similar pain in the past. Had a history of pancreatitis. No history of gallstones. No history of alcohol abuse. Unsure as to the etiology of the pancreatitis. Patient was to follow-up with GI Dr. Kendrick on an outpatient basis. Unfortunately the appointment was set later in February. No cough no congestion or upper respiratory symptoms. No diaphoresis. No chest pain. Patient is from home. The pain started yesterday his extreme similar to previous bouts. Related Data Home Medications Medication Instructions Recorded Confirmed omeprazole 20 mg capsule,delayed 20 mg PO DAILY 01/25/21 02/10/21 release Previous Rx's Medication Instructions Recorded cholecalciferol (vitamin D3) 50 50 mcg PO DAILY 90 Days #90 tab 05/29/20 mcg (2,000 unit) tablet albuterol sulfate 90 mcg/actuation 2 puff PO Q4H PRN #8.5 g 08/06/20 aerosol inhaler nicotine 14 mg/24 hr daily 1 patch TRANSDERMAL DAILY 28 Days 01/19/21 transdermal patch #28 ea ondansetron 8 mg disintegrating 8 mg PO Q12H PRN 14 Days #28 tab 02/10/21 tablet tramadol 50 mg tablet 50 mg PO BID PRN 7 Days #14 tab 02/10/21 atorvastatin 10 mg tablet 10 mg PO BEDTIME 90 Days #90 tab 02/11/21 quetiapine 25 mg tablet 25 mg PO BID 90 Days #180 tab 02/14/21 quetiapine 300 mg tablet (Seroquel) 300 mg PO BEDTIME 90 Days #90 tab 02/14/21 oxycodone 5 mg tablet 5 mg PO Q8H PRN #7 tab 02/21/21 Allergies Allergy/AdvReac Type Severity Reaction Status Date / Time No Known Allergies Allergy Verified 02/10/21 10:31 [No Known Allergies*] Review of Systems Review of Systems Positive abdominal pain epigastric Positive nausea No vomiting All systems reviewed otherwise negative Yes all other systems are reviewed and are negative Physical Exam Vital Signs: Vital Signs: Last Vital Signs Temp 97.6 F 02/21/21 18:31 Pulse 60 02/21/21 18:31 Resp 14 02/21/21 18:31 BP 105/55 L 02/21/21 18:31 Pulse Ox 100 02/21/21 18:31 Body Mass Index 22.6 Appearance: Alert. Oriented X3. No acute distress. Eyes: Pupils equal, round and reactive to light. ENT: Pharynx normal. Neck: Normal inspection. Neck supple. No lymph nodes noted. No crepitus CVS: Normal heart rate and rhythm. Pulses normal. Normal S1 and S2 Respiratory: No respiratory distress. Breath sounds normal. No Wheezing. No rales Abdomen: Soft and nontender. No rigidity. No distention. good BS x4 Skin: Skin warm and dry. Normal skin color. Normal skin turgor. Extremities: No lower extremity edema. Neurovascular intact to all extremities. No Lacerations. No Rash Neuro: Oriented X 3. No motor deficit. No sensory deficit. Moving all extermities. No slurred speech MDM - Abdominal Pain MDM Narrative Medical decision making narrative: History of pancreatitis symptoms seems to be same. Lipase but the same level. After pain medication symptoms really. Patient has follow-up with GI on an outpatient basis. In stable condition. Were unsure as to the etiology of the pancreatitis as workup for gallstone and also alcohol was negative. Patient is in stable condition. Will discharge home. Differential Diagnosis Differential diagnosis: Likely abdominal pain, aortic dissection, acute appendicitis, bowel perforation, calculus of kidney, gastroenteritis, gastritis, mesenteric ischemia, ovarian cyst, pancreatitis and peptic ulcer disease Medical Records Attestation: I reviewed the patient's medical records. Lab Data Attestation: I reviewed the patient's lab results. Result diagrams: 02/21/21 16:02 02/21/21 16:17 Labs: Lab Results 02/21/21 02/21/21 Range/Units 16:02 16:17 WBC 15.5 H (4.8-10.8) X10*3/uL RBC 5.19 (4.20-5.50) X10*6/uL Hgb 15.8 (12.0-16.0) g/dl Hct 46.2 (37-47) % MCV 89.0 (80-98) fL MCH 30.4 (27.0-33.0) pg MCHC 34.2 (31.0-35.0) g/dl RDW 13.7 (11.0-16.0) % Plt Count 261 (160-400) X10*3/uL MPV 10.3 (9.4-12.3) fL Absolute Nucleated RBC 0.000 (0.0-0.012) X10*3/uL Nucleated RBC % (auto) 0.0 (0.0-0.2) /100WBC Sodium 141 (135-145) mmol/L Potassium 4.2 (3.3-5.1) mmol/L Chloride 107 (96-108) mmol/L Carbon Dioxide 25 (22-29) mmol/L Anion Gap 13 (12-20) BUN 8 L (9-16) mg/dL Creatinine 0.85 (0.5-1.4) mg/dL Estim Creat Clear Calc 73.3 Estimated GFR > 60 Random Glucose 116 H (60-115) mg/dL Calcium 10.0 (8.4-10.2) mg/dL Lipase 125 H (8-78) U/L Discharge Plan Discharge Clinical Impression: Acute pancreatitis Patient Disposition: Home, Self-Care Instructions: Pancreatitis (ED) Prescriptions: New oxycodone 5 mg tablet 5 mg PO Q8H PRN (Reason: pain) Qty: 7 RF: 0 No Action cholecalciferol (vitamin D3) 50 mcg (2,000 unit) tablet 50 mcg PO DAILY 90 Days Qty: 90 RF: 2 albuterol sulfate 90 mcg/actuation HFA aerosol inhaler 2 puff PO Q4H PRN (Reason: shortness of breath or wheezing) Qty: 8.5 RF: 8 atorvastatin 10 mg tablet 10 mg PO BEDTIME 90 Days Qty: 90 RF: 0 quetiapine [Seroquel] 300 mg tablet 300 mg PO BEDTIME 90 Days Qty: 90 RF: 1 quetiapine 25 mg tablet 25 mg PO BID 90 Days Qty: 180 RF: 1 omeprazole 20 mg capsule,delayed release(DR/EC) 20 mg PO DAILY RF: 0 nicotine 14 mg/24 hr patch 24 hour 1 patch transdermal DAILY 28 Days Qty: 28 RF: 0 ondansetron 8 mg tablet,disintegrating 8 mg PO Q12H PRN (Reason: nausea and vomiting) 14 Days Qty: 28 RF: 0 tramadol 50 mg tablet 50 mg PO BID PRN (Reason: pain) 7 Days Qty: 14 RF: 0 Referrals: Miah Kendrick [Physician] - 2 days PMF Past Medical History Attestation statement: The following information was validated with the patient. Medical History Encounter for screening colonoscopy Kidney stones Microscopic hematuria Right thyroid nodule Screening for colon cancer Social History Social History Household Members: None Housing: Apartment Alcohol intake: never Patient Tobacco Use Status: Never used Tobacco Tobacco use type: Cigarette Cigarettes Per Day: 1 Use of substances other than those prescribed or required for medical reasons: Unknown Substance Use Type: Marijuana Advance Directives: Yes Advance Directives on File: Yes Advance Directives Date on File: 01/24/21 service: No Current occupational status: employed and unemployed 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
[2021-02-21] MEDS: ondansetron HCL 4 MG/2 ML VIAL IVPUSH (18:03)
[2021-02-21] MEDS: 0.9 % Sodium Chloride 1,000 ML 999 ML IV (18:04)
[2021-02-21] MEDS: HYDROmorphone HCl 1 MG/ML SYRINGE IVPUSH (18:04)
[2021-02-21 18:31] VITALS: BP 105/55; PULSE 60; RESP 14; TEMP 36.4; O2SAT 100
--- NOTE | 2021-02-21 18:37 | PC.NURSE ---
Pt states she wants to leave and feels like she can manage the pain at home. MD notified who will start up the discharge paperwork.
== END 2021-02-21 18:48 | disposition home or self-care (01) ==
PROVIDERS: Emergency Provider Emergency Medicine Emergency Medical Services; PCP Nurse Practitioner Family
DX: K85.90 Acute pancreatitis without necrosis or infection, unspecified (principal); R10.13 Epigastric pain; M54.50 Low back pain, unspecified; Z79.899 Other long term (current) drug therapy
CPT/HCPCS: 36415; 80048; 83690; 85027; 96361; 96374; 96375; 99284; J1170; J2405

== ENCOUNTER 2021-02-24 10:47 | Outpatient (REF) | payer OTHER, SELFPAY ==
[2021-02-24 13:26] LABS: MANUAL DIFF FLAG NO
[2021-02-24 13:30] LABS: Basophils Percent Auto 0.5 % (0-2); Eosinophils Absolute Auto 0.1 X10*3/uL (0.0-0.4); Eosinophils Percent Auto 1.5 % (0-4); Hematocrit 41.9 % (37-47); Hemoglobin 14.1 g/dl (12.0-16.0); Imm Gran Abs Auto 0.02 X10*3/uL (0.00-0.03); Imm Gran Pct Auto 0.3 % (0.0-0.4); Lymphocytes Percent Auto 26.5 % (20-40); Mean Corpuscular HGB Conc 33.7 g/dl (31.0-35.0); Mean Corpuscular Hemoglobin 30.1 pg (27.0-33.0); Mean Corpuscular Volume 89.3 fL (80-98); Mean Platelet Volume 11.3 fL (9.4-12.3); Monocytes Absolute Auto 0.5 X10*3/uL (0.1-1.2); Neutrophils Absolute Auto 4.9 X10*3/uL (2.0-8.3); Neutrophils Percent Auto 65.2 % (45-73); Platelet Count 242 X10*3/uL (160-400); Red Blood Count 4.69 X10*6/uL (4.20-5.50); Red Cell Distribution Width 13.9 % (11.0-16.0); White Blood Count 7.5 X10*3/uL (4.8-10.8)
[2021-02-24 13:43] LABS: Alanine Aminotransferase 6 U/L (0-31); Albumin Level 4.1 g/dL (3.5-5.0); Alkaline Phosphatase 111 U/L (39-117); Amylase 125 U/L (28-100); Anion Gap 10 (12-20); Aspartate Amino Transferase 12 U/L (5-31); Bilirubin Direct 0.2 mg/dL (0.0-0.5); Bilirubin Total 0.3 mg/dL (0.0-1.0); Blood Urea Nitrogen 6 mg/dL (9-16); Calcium 9.3 mg/dL (8.4-10.2); Carbon Dioxide 27 mmol/L (22-29); Chloride 109 mmol/L (96-108); Estimated Glomerular Filt Rate > 60; Lipase 148 U/L (8-78); Potassium 4.2 mmol/L (3.3-5.1); Sodium 142 mmol/L (135-145); Total Protein 6.4 g/dL (6.5-8.0)
== END 2021-02-24 10:48 | disposition home or self-care (01) ==
LOC: HO.10HDL 10:47
PROVIDERS: Visit Provider Internal Medicine
DX: K85.00 Idiopathic acute pancreatitis without necrosis or infection (principal); R10.13 Epigastric pain
CPT/HCPCS: 36415; 80051; 80076; 82150; 82310; 82565; 83690; 84520; 85025

== ENCOUNTER 2021-04-07 12:54 | Outpatient (REF) | payer OTHER, SELFPAY ==
--- NOTE | ~2021-04-07 | US_ITS ---
EXAMINATION: US RETROPERITONEAL LIMITED (RENAL ONLY) CLINICAL INFORMATION: Calculus of kidney. COMPARISON: CT abdomen and pelvis 01/24/2021. Limited abdominal ultrasound 01/24/2021. TECHNIQUE: Real-time imaging of the kidneys. FINDINGS: RIGHT KIDNEY: 9.9 x 3.7 x 4.6 cm (SAG x AP x TRV). The kidney is normal in size, contour, and echogenicity. Renal cortical thickness is normal. No hydronephrosis. There is an anechoic cyst in the midpole, likely a complex cyst measuring 0.95 x 0.63 x 0.73 cm. An echogenic nonobstructive stone is seen in the lower pole measuring 0.25 x 0.12 x 0.15 cm. It was not seen on recent CT abdomen exam. LEFT KIDNEY: 9.6 x 4.6 x 4.7 cm (SAG x AP x TRV). The kidney is normal in size, contour, and echogenicity. Renal cortical thickness is normal. No calculi or focal parenchymal lesions. No hydronephrosis. There are multiple echogenic foci with no obvious echogenic stone. US/US renal BI IMPRESSION: There is a midpole complex cyst right kidney. There is a nonobstructive echogenic stone lower pole left kidney. There are several echogenic areas in the left kidney without shadowing.
[2021-04-07 16:30] LABS: MANUAL DIFF FLAG NO
[2021-04-07 16:32] LABS: Basophils Percent Auto 0.3 % (0-2); Eosinophils Absolute Auto 0.1 X10*3/uL (0.0-0.4); Eosinophils Percent Auto 0.6 % (0-4); Hematocrit 46.8 % (37.0-47.0); Hemoglobin 15.9 g/dl (12.0-16.0); Imm Gran Abs Auto 0.02 X10*3/uL (0.00-0.03); Imm Gran Pct Auto 0.2 % (0.0-0.4); Lymphocytes Absolute Auto 2.3 X10*3/uL (1.2-4.9); Lymphocytes Percent Auto 26.4 % (20-40); Mean Corpuscular Hemoglobin 30.3 pg (27.0-33.0); Mean Corpuscular Volume 89.1 fL (80.0-98.0); Mean Platelet Volume 11.2 fL (9.4-12.3); Monocytes Absolute Auto 0.5 X10*3/uL (0.1-1.2); Monocytes Percent Auto 5.5 % (2-11); Neutrophils Absolute Auto 5.9 x10*3/uL (2.0-8.3); Platelet Count 302 X10*3/uL (160-400); Red Blood Count 5.25 X10*6/uL (4.20-5.50); Red Cell Distribution Width 13.6 % (11.0-16.0); White Blood Count 8.8 X10*3/uL (4.8-10.8)
[2021-04-07 16:33] LABS: Appearance Urine CLEAR; Color Urine YELLOW; Glucose Urine UA NEG (NEG); Leukocyte Esterase Urine NEG (NEG); Nitrite Urine NEG (NEG); UACC Culture Trigger NO; Urine Blood 1+ (NEG); Urine Ketones 5 MG/DL (NEG); Urine Protein NEG (NEG-TRACE)
[2021-04-07 16:47] LABS: RBC Urine 0-2 /HPF (0); Squamous Epithelial Cell Urine TRACE /LPF; WBC Urine 0-2 /HPF (0-4)
[2021-04-07 16:48] LABS: Mucus Urine TRACE /LPF
[2021-04-07 17:09] LABS: Cholesterol 205 mg/dL; HDL Cholesterol 40 mg/dL; LDL Cholesterol Calculated 135 mg/dl; Lipase 100 U/L (8-78); Triglycerides 154 mg/dL
[2021-04-08 11:41] LABS: Immunoglobulin A 245 mg/dL (47-310)
[2021-04-10 12:22] LABS: Endomysial IgA Antibody Negative (Negative)
[2021-04-12 15:26] LABS: Transglutaminase Ab IgG <1.0 U/mL
== END 2021-04-07 12:55 | disposition home or self-care (01) ==
LOC: HO.HMGCX 12:54
PROVIDERS: Absent Provider Internal Medicine; PCP Nurse Practitioner Family; Referring Provider Internal Medicine; Visit Provider Urology
DX: Z20.822 Contact with and (suspected) exposure to COVID-19 (principal); N20.0 Calculus of kidney; R19.7 Diarrhea, unspecified; E78.5 Hyperlipidemia, unspecified; K85.00 Idiopathic acute pancreatitis without necrosis or infection
CPT/HCPCS: 36415; 76775; 80061; 81001; 82784; 83516; 83690; 85025; 86255; 86256; C9803; U0003; U0005

== ENCOUNTER 2021-04-17 08:34 | Outpatient (REF) | payer OTHER, SELFPAY ==
--- NOTE | ~2021-04-17 | CT_ITS ---
EXAMINATION: CT ABDOMEN AND PELVIS WITH CONTRAST CLINICAL INFORMATION: Idiopathic pancreatitis COMPARISON: Previous CT of the abdomen and pelvis January 2021 TECHNIQUE: Multidetector volumetric images were obtained from the superior aspect of the liver through the pubic symphysis following administration 85 mL of Omnipaque 350 intravenous contrast. Sagittal and coronal reformatted images were obtained on the technologist's workstation. Oral contrast: Yes This CT examination was performed using dose optimization techniques as appropriate, variously including the following: *Automated exposure control *Adjustment of mA and/or kV according to patient size (this includes techniques or standardized protocols for targeted exams where dose is matched to indication/reason for exam; i.e. extremities or head) *Use of iterative reconstruction technique DLP: 336 mGy-cm FINDINGS: LUNG BASES: The visualized lung bases are unremarkable. LIVER, GALLBLADDER, AND BILIARY TREE: The liver is normal in size, shape, and attenuation. No focal hepatic lesion or biliary ductal dilatation is present. The gallbladder is unremarkable with no evidence of radiopaque gallstones, gallbladder wall thickening, or obvious pericholecystic inflammatory changes. PANCREAS: There is still slight enlargement of the head of the pancreas measuring 3.7 cm in AP dimension. There is still a small amount of fluid seen surrounding the head of the pancreas and wall thickening of the adjacent duodenum. Findings are again suggestive of mild pancreatitis. This appears slightly improved from January 2021 exam. The main pancreatic duct does not appear dilated. Pancreatic lesion is not seen. SPLEEN: Unremarkable. ADRENAL GLANDS: Unremarkable. KIDNEYS AND URETERS: There is a 1 cm low-attenuation lesion in the upper pole of the right kidney probably representing a cyst. No imaging follow-up. There is a small right renal stones, one in the upper pole and 2 in the lower pole measuring 1 to 2 mm. BLADDER: Unremarkable. GASTROINTESTINAL TRACT: There is stool throughout the colon questionable for constipation. The small and large bowel are otherwise unremarkable. The appendix is unremarkable. ABDOMINAL WALL: No significant hernia is appreciated. LYMPH NODES: Normal. VASCULAR: Unremarkable. PELVIC VISCERA: There is a probable 2 cm posterior uterine body fibroid. Uterus and adnexa are otherwise unremarkable. OSSEOUS STRUCTURES: There are degenerative changes of the spine. CT/CT abdomen pelvis w con IMPRESSION: Prominent head of the pancreas, small amount of surrounding fluid and mild wall thickening of the adjacent duodenum. Findings are again suggestive of mild pancreatitis. This appears improved from January 2021 exam. Small right renal cyst and small right renal stones. Fleischner guidelines were followed.
[2021-04-17 09:29] LABS: Blood Urea Nitrogen 7 mg/dL (9-16); Estimated Glomerular Filt Rate > 60
[2021-04-17] MEDS: iohexoL 350 MG/ML 100 ML INFUS..BTL IV (12:20)
== END 2021-04-17 08:35 | disposition home or self-care (01) ==
LOC: HO.CT 08:34
PROVIDERS: Radiology Diagnostic Radiology; Visit Provider Internal Medicine
DX: R10.13 Epigastric pain (principal); K85.00 Idiopathic acute pancreatitis without necrosis or infection
CPT/HCPCS: 36415; 74177; 82565; 84520; Q9967

== ENCOUNTER → 2021-04-29 11:37 | Outpatient (BNVA) | payer OTHER, SELFPAY | PROVIDERS: PCP Nurse Practitioner Family | DX: N20.0 Calculus of kidney (principal) | CPT/HCPCS: 99212 ==

== ENCOUNTER 2021-05-29 21:35 | Inpatient (IN) | payer OTHER, SELFPAY ==
--- NOTE | ~2021-05-29 | CT_ITS ---
EXAMINATION: CT ABDOMEN AND PELVIS WITH CONTRAST CLINICAL INFORMATION: Right upper quadrant and epigastric pain COMPARISON: None TECHNIQUE: Multidetector volumetric images were obtained from the superior aspect of the liver through the pubic symphysis following administration 85 mL of Omnipaque 350 intravenous contrast. Sagittal and coronal reformatted images were obtained on the technologist's workstation. Oral contrast: No This CT examination was performed using dose optimization techniques as appropriate, variously including the following: *Automated exposure control *Adjustment of mA and/or kV according to patient size (this includes techniques or standardized protocols for targeted exams where dose is matched to indication/reason for exam; i.e. extremities or head) *Use of iterative reconstruction technique DLP: 399 mGy-cm FINDINGS: LUNG BASES: The visualized lung bases are unremarkable. LIVER, GALLBLADDER, AND BILIARY TREE: Liver normal in size, contour and morphology. No focal liver lesions. There is new moderate intrahepatic biliary duct dilatation. The common hepatic duct is dilated to 1.3 cm. The gallbladder is moderately distended as well, with dilatation of the cystic duct. There is a relatively abrupt transition/narrowing at the confluence of the cystic duct and hepatic duct within the superior pancreatic head. The distal common bile duct, just proximal to the ampulla is normal caliber. There is peribiliary hyperemia evident along the common bile duct and at the confluence of the common hepatic and cystic ducts. See whitley images. PANCREAS: There is fullness of the pancreatic head and ill-definition of the fat planes surrounding the pancreatic head, and within the cristina hepatis. The pancreatic duct within the pancreatic head is not visualized. The pancreatic duct within the neck, body and tail is only slightly prominent. SPLEEN: Unremarkable. ADRENAL GLANDS: Unremarkable. KIDNEYS AND URETERS: The kidneys are normal in size, shape, and attenuation. Benign subcentimeter cysts in the right kidney requires no further follow-up. There are 4 punctate nonobstructive intrarenal calculi within the right kidney, one within the upper pole and 3 within the lower pole. No urinary calculi on the left. No ureteral calculi or hydronephrosis. No perinephric abnormalities. BLADDER: Unremarkable. GASTROINTESTINAL TRACT: The small and large bowel are unremarkable. The appendix is unremarkable. ABDOMINAL WALL: No significant hernia is appreciated. LYMPH NODES: Normal. VASCULAR: Unremarkable. PELVIC VISCERA: Uterus and adnexa unremarkable. OSSEOUS STRUCTURES: Unremarkable. CT/CT abdomen pelvis w con IMPRESSION: * There is new moderate intrahepatic biliary duct dilatation, as well as dilatation of the common hepatic duct to 1.3 cm, which abruptly narrows at the confluence with the dilated cystic duct, with associated biliary / peribiliary hyperemia within the pancreatic head (see whitley images). There is prominence of the pancreatic head and ill-definition of the surrounding peripancreatic fat planes, which could relate to pancreatitis, with the aforementioned findings related to inflammatory narrowing of the common bile duct. Of course, biliary neoplasm (cholangiocarcinoma) or pancreatic neoplasm must also be considered. Recommend MRI/MRCP without and with contrast for further evaluation. * Right nonobstructive intrarenal calculi.
--- NOTE | ~2021-05-29 | MR_ITS ---
EXAMINATION: MR ABDOMEN WITHOUT AND WITH CONTRAST CLINICAL INFORMATION: Abdominal pain. Recurrent pancreatitis. COMPARISON: Previous CTs of the abdomen and pelvis, most recent 05/30/2021 and abdominal ultrasounds, most recent 01/24/2021. TECHNIQUE: MR abdomen was performed without and with use of 6 mL intravenous Gadavist gadolinium contrast. Postcontrast images are performed in multiphase dynamic sequences. Imaging was performed in 3 planes. MRCP sequences were also performed. FINDINGS: LUNG BASES: The visualized lung bases are unremarkable. LIVER, GALLBLADDER, AND BILIARY TREE: The liver is normal in size, smooth in contour, and normal in signal. No focal liver lesion is seen. There is mild intrahepatic and extrahepatic biliary duct dilatation and again enhancement of the wall of the extrahepatic bile ducts. The gallbladder is upper normal in size. There is mild diffuse gallbladder wall thickening and enhancement. Gallbladder wall thickness measures up to 0.4 cm. No gallstones are seen. There is low insertion of the cystic duct. The extrahepatic bile ducts are prominent, common hepatic duct measuring up to 1 cm. The bile ducts distal to the low insertion of the cystic duct/common bile duct are not well visualized in the head of the pancreas. A definite common bile duct stone is not seen. PANCREAS: The uncinate process of the head of the pancreas appears prominent measuring 3.5 cm. There is stranding of the surrounding peripancreatic fat. This appears decreased in signal on T1-weighted sequences compared to the body and tail of the pancreas and demonstrates decreased enhancement. This may represent pancreatitis. It is difficult to exclude a mass. There is slight stranding of the surrounding peripancreatic fat. No peripancreatic fluid collection is seen. The main pancreatic duct in the body and tail of the pancreas does not appear dilated. The pancreatic duct in the head of the pancreas are not well visualized. SPLEEN: Normal. ADRENAL GLANDS: Normal. KIDNEYS AND URETERS: There is a small cyst in the right kidney. The kidneys are otherwise unremarkable. GASTROINTESTINAL TRACT: No bowel obstruction. No ascites or fluid collection. ABDOMINAL WALL: No significant hernia is appreciated. LYMPH NODES: No lymphadenopathy. VASCULAR: Unremarkable. OSSEOUS STRUCTURES: Marrow signal normal. There are degenerative changes of the spine. MR/MR abdomen wo/w con IMPRESSION: Enlarged uncinate process of the head of the pancreas, which is decreased signal and demonstrates enhancement. There is mild stranding of the fat surrounding the head of the pancreas. This may represent focal pancreatitis. Neoplastic process/ampullary lesion cannot be excluded. The main pancreatic duct in the body and tail of the pancreas does not appear dilated. The pancreatic duct in the head of the pancreas is not well visualized. New intrahepatic and extrahepatic biliary duct dilatation and mild enhancement of the extrahepatic bile ducts. The gallbladder is upper normal in size. There is mild thickening and enhancement of the gallbladder wall which is also new. No gallstones are seen. There is low insertion of the cystic duct into the distal extrahepatic bile ducts/common hepatic duct and the common bile duct is not well visualized in the head of the pancreas.
--- NOTE | ~2021-05-29 | FL_ITS ---
EXAMINATION: XR FLUOROSCOPY WITH IMAGES CLINICAL INFORMATION: Abdominal pain. Recurrent pancreatitis. COMPARISON: Previous MR of the abdomen 06/01/2021 CT of the abdomen and pelvis 05/30/2021 and abdominal ultrasound January 2021 TECHNIQUE: Fluoroscopy performed by Dr. Jennings. Fluoroscopy time: 6.1 minutes DAP: 26 mGycm2 Images: 4 FINDINGS: There is an narrowing of the distal common bile duct suggestive of a stricture. There is dilatation of the more proximal extrahepatic bile ducts and intrahepatic bile ducts. This has the shoulder or shelf which is a suspicious finding for neoplastic process. Cystic duct insertion is not seen. Final images demonstrate placement of a plastic internal biliary stent in the distal common bile duct with some the decompression of the biliary system. FL/FL guidance in OR IMPRESSION: Distal common bile duct stricture. Dilated more proximal intrahepatic extrahepatic bile ducts. Placement of a distal common bile duct plastic stent.
[2021-05-29 21:50] VITALS: BP 111/66; PULSE 87; RESP 16; TEMP 36.2; O2SAT 98; BMI 20.9
[2021-05-29 22:09] LABS: Basophils Percent Auto 0.4 % (0-2); Eosinophils Absolute Auto 0.2 X10*3/uL (0.0-0.4); Eosinophils Percent Auto 2.9 % (0-4); Hemoglobin 13.5 g/dl (12.0-16.0); Imm Gran Abs Auto 0.02 X10*3/uL (0.00-0.03); Imm Gran Pct Auto 0.3 % (0.0-0.4); Lymphocytes Absolute Auto 1.9 X10*3/uL (1.2-4.9); Lymphocytes Percent Auto 25.4 % (20-40); MANUAL DIFF FLAG NO; Mean Corpuscular HGB Conc 33.8 g/dl (31.0-35.0); Mean Corpuscular Hemoglobin 30.5 pg (27.0-33.0); Mean Corpuscular Volume 90.3 fL (80.0-98.0); Mean Platelet Volume 10.4 fL (9.4-12.3); Monocytes Absolute Auto 0.7 X10*3/uL (0.1-1.2); Monocytes Percent Auto 9.6 % (2-11); Neutrophils Absolute Auto 4.5 x10*3/uL (2.0-8.3); Neutrophils Percent Auto 61.4 % (45-73); Platelet Count 280 X10*3/uL (160-400); Red Blood Count 4.43 X10*6/uL (4.20-5.50); Red Cell Distribution Width 15.2 % (11.0-16.0); White Blood Count 7.4 X10*3/uL (4.8-10.8)
[2021-05-29 22:16] LABS: Appearance Urine HAZY; Color Urine DK YELLOW; Glucose Urine UA NEG (NEG); Leukocyte Esterase Urine NEG (NEG); Nitrite Urine NEG (NEG); PH 7.5 (5.0-8.0); Specific Gravity - Urine 1.015 (1.005-1.025); UACC Culture Trigger NO; Urine Blood 2+ (NEG); Urine Ketones NEG (NEG); Urine Protein NEG (NEG-TRACE)
[2021-05-29 22:23] LABS: Amorphous Sediment Urine 2+ /LPF; Bacteria Urine 1+ /LPF; Mucus Urine 1+ /LPF; Squamous Epithelial Cell Urine 1+ /LPF
[2021-05-29 22:24] LABS: WBC Urine 0 /HPF (0-4)
[2021-05-29 22:32] LABS: Alanine Aminotransferase 233 U/L (0-31); Alkaline Phosphatase 815 U/L (39-117); Anion Gap 10 (12-20); Aspartate Amino Transferase 105 U/L (5-31); Bilirubin Total 2.7 mg/dL (0.0-1.0); Blood Urea Nitrogen 6 mg/dL (9-16); Calcium 9.6 mg/dL (8.4-10.2); Carbon Dioxide 31 mmol/L (22-29); Chloride 104 mmol/L (96-108); Creatinine Clr Calc Pharmacy 81.5; Estimated Glomerular Filt Rate > 60; Glucose Random 110 mg/dL (60-115); Potassium 3.8 mmol/L (3.3-5.1); Sodium 141 mmol/L (135-145); Total Protein 6.7 g/dL (6.5-8.0)
[2021-05-30] VITALS (10 sets, daily range): BP systolic 101–141; BP diastolic 48–77; PULSE 47–99; RESP 14–20; TEMP 36.2–36.9; O2SAT 97–99
[2021-05-30 03:46] LABS: Lipase 93 U/L (8-78)
--- NOTE | 2021-05-30 03:56 | ED_ITS ---
HPI - Abdominal Pain General Chief Complaint: Abdominal Pain Stated Complaint: ?pancreatitis Time Seen by Provider: 05/30/21 03:28 Source: patient Mode of arrival: ambulatory History of Present Illness HPI narrative: 51-year-old female, remote history of alcohol use, every day cigarette smoker, being followed by GI for pancreatitis and determine not to be associated with biliary etiologies or medications/triglycerides. Patient states that she saw Dr. Kendrick on Tuesday, and that she has had an outpatient MRI completed as well. She states that yesterday she began developing increase nausea, vomiting, as well as pain extending from her right upper quadrant into her pancreas and states that she was ?no longer able to take it?. Patient states that she has also began experiencing pruritus and that taking a shower has made it worse. Related Data Previous Rx's Medication Instructions Recorded cholecalciferol (vitamin D3) 50 50 mcg PO DAILY 90 Days #90 tab 05/29/20 mcg (2,000 unit) tablet albuterol sulfate 90 mcg/actuation 2 puff PO Q4H PRN #8.5 g 08/06/20 aerosol inhaler ondansetron 8 mg disintegrating 8 mg PO Q12H PRN 14 Days #28 tab 02/10/21 tablet quetiapine 25 mg tablet 25 mg PO BID 90 Days #180 tab 02/14/21 quetiapine 300 mg tablet (Seroquel) 300 mg PO BEDTIME 90 Days #90 tab 02/14/21 omeprazole 20 mg capsule,delayed 20 mg PO DAILY 90 Days #90 cap 03/03/21 release pyridoxine (vitamin B6) 100 mg 100 mg PO DAILY 90 Days #90 tab 04/29/21 tablet nicotine 14 mg/24 hr daily 1 patch TRANSDERMAL DAILY 28 Days 05/10/21 transdermal patch #28 ea atorvastatin 20 mg tablet 20 mg PO BEDTIME 90 Days #90 tab 05/13/21 Allergies Allergy/AdvReac Type Severity Reaction Status Date / Time No Known Allergies Allergy Verified 04/29/21 11:50 [No Known Allergies*] Review of Systems Review of Systems Pertinent positives and negatives as stated in HPI 10 point review of systems is otherwise negative. Physical Exam Vital Signs: Vital Signs: Last Vital Signs Temp 97.5 F 05/30/21 05:09 Pulse 68 05/30/21 05:09 Resp 17 05/30/21 05:09 BP 110/62 05/30/21 05:09 Pulse Ox 97 05/30/21 05:09 BMI result Body Mass Index 20.9 VITAL SIGNS: Reviewed. GENERAL: Well developed, well nourished, in no acute distress. HEAD: Normocephalic/atraumatic EYES: PERRLA, EOMI OROPHARYNX: no oral lesions noted, posterior pharynx clear LUNGS: Normal breath sounds. No adventitious sounds or accessory muscle use. SpO2<97> CARDIOVASCULAR: Regular rate and rhythm without noted murmurs ABDOMEN: Soft, non-tender, non-distended with bowel sounds. MUSCULOSKELETAL: No tenderness, deformities, or effusions noted on gross inspection. EXTREMITIES: No cyanosis, clubbing or edema. SKIN: Inspection of the skin reveals no rashes, jaundice NEUROLOGIC: Alert and oriented x 4. Strength and sensation to light touch were grossly intact x 4. Course Course Course Narrative: 51-year-old female with history and clinical presentation suspicious or pancreatitis, and on review of all investigations there is no evidence to suggest infectious etiology and there were noted significant changes on CT scan involving the hepatobiliary system. Patient's history is significant for both parents having pancreatic cancer. He patient receiving pain medication, antiemetics, as well as IV fluid resuscitation. I discussed this case with GI and patient will be admitted with recommendations to obtain MRCP. Inpatient hospital this was informed of this patient and accepts admission. Reevaluation(s) Reevaluation #1: Discussion with Dr Jennings. Recommends MRCP Time: 05:45 MDM - Abdominal Pain Lab Data Result diagrams: 05/29/21 22:04 05/29/21 22:04 Labs: Lab Results 05/29/21 05/29/21 05/29/21 Range/Units 22:04 22:04 22:11 WBC 7.4 (4.8-10.8) X10*3/uL RBC 4.43 (4.20-5.50) X10*6/uL Hgb 13.5 (12.0-16.0) g/dl Hct 40.0 (37.0-47.0) % MCV 90.3 (80.0-98.0) fL MCH 30.5 (27.0-33.0) pg MCHC 33.8 (31.0-35.0) g/dl RDW 15.2 (11.0-16.0) % Plt Count 280 (160-400) X10*3/uL MPV 10.4 (9.4-12.3) fL Immature Gran % (Auto) 0.3 (0.0-0.4) % Neut % (Auto) 61.4 (45-73) % Lymph % (Auto) 25.4 (20-40) % [place] % (Auto) 9.6 (2-11) % Eos % (Auto) 2.9 (0-4) % Baso % (Auto) 0.4 (0-2) % Lymph # (Auto) 1.9 (1.2-4.9) X10*3/uL [place] # (Auto) 0.7 (0.1-1.2) X10*3/uL Eos # (Auto) 0.2 (0.0-0.4) X10*3/uL Baso # (Auto) 0.0 (0.0-0.2) X10*3/uL Abs Immat Gran (auto) 0.02 (0.00-0.03) X10*3/uL Absolute Neuts (auto) 4.5 (2.0-8.3) x10*3/uL Absolute Nucleated RBC 0.000 (0.0-0.012) X10*3/uL Nucleated RBC % (auto) 0.0 (0.0-0.2) /100WBC Sodium 141 (135-145) mmol/L Potassium 3.8 (3.3-5.1) mmol/L Chloride 104 (96-108) mmol/L Carbon Dioxide 31 H (22-29) mmol/L Anion Gap 10 L (12-20) BUN 6 L (9-16) mg/dL Creatinine 0.76 (0.5-1.4) mg/dL Estim Creat Clear Calc 81.5 Estimated GFR > 60 Random Glucose 110 (60-115) mg/dL Calcium 9.6 (8.4-10.2) mg/dL Total Bilirubin 2.7 H (0.0-1.0) mg/dL Direct Bilirubin 2.3 H (0.0-0.5) mg/dL GGT 1059 H (7-33) U/L AST 105 H (5-31) U/L ALT 233 H (0-31) U/L Alkaline Phosphatase 815 H D (39-117) U/L Total Protein 6.7 (6.5-8.0) g/dL Albumin 4.0 (3.5-5.0) g/dL Lipase 93 H (8-78) U/L Urine Color DK YELLOW Urine Appearance HAZY Urine pH 7.5 (5.0-8.0) Ur Specific [place] 1.015 (1.005-1.025) Urine Protein NEG (NEG-TRACE) MG/DL Urine Glucose (UA) NEG (NEG) MG/DL Urine Ketones NEG (NEG) MG/DL Urine Blood 2+ H (NEG) Urine Nitrite NEG (NEG) Ur Leukocyte Esterase NEG (NEG) Urine RBC 1-4 (0) /HPF Urine WBC 0 (0-4) /HPF Ur Squamous Epith Cells 1+ /LPF Amorphous Sediment 2+ /LPF Urine Bacteria 1+ /LPF Urine Mucus 1+ /LPF Discharge Plan Discharge Clinical Impression: Pancreatitis, Hepatitis Patient Disposition: Admitted As Inpatient [facility] Past Medical History Source: nursing notes reviewed Medical History Encounter for screening colonoscopy Kidney stones Microscopic hematuria Right thyroid nodule Screening for colon cancer Social History Social History Household Members: None Housing: Apartment Alcohol intake: never Patient Tobacco Use Status: Current everyday Tobacco user Tobacco use type: Cigarette Cigarettes Per Day: 2 Substance Use Type: Marijuana Advance Directives: Yes Advance Directives on File: Yes Advance Directives Date on File: 01/24/21 service: No Current occupational status: employed and unemployed Current occupation: [employer]
[2021-05-30] MEDS: 0.9 % Sodium Chloride 1,000 ML 999 ML IV (03:57)
[2021-05-30 04:03] LABS: Bilirubin Direct 2.3 mg/dL (0.0-0.5); Gamma Glutamyl Transpeptidase 1059 U/L (7-33)
[2021-05-30] MEDS: HYDROmorphone HCl 0.5 MG/0.5 ML SYRINGE 0.25 MG IVPUSH (04:04)
[2021-05-30] MEDS: ondansetron HCL 4 MG/2 ML VIAL IVPUSH (04:04)
[2021-05-30] MEDS: iohexoL 350 MG/ML 100 ML INFUS..BTL 85 ML IV (04:33)
[2021-05-30 07:37] LABS: COVID-19 Test Negative (Negative)
--- NOTE | 2021-05-30 08:37 | PHA.MEDREC ---
Pharmacy Consult ? Medication Reconciliation Pharmacy has completed the medication reconciliation. Spoke with patient in ED.
--- NOTE | 2021-05-30 09:07 | PM.IMHP ---
History of Present Illness Date of Service: 05/30/21 Chief Complaint: Abdominal pain 51-year-old female with past medical history of recurrent biliary obstruction of unknown etiology, workup still in progress, presented with 1 day of recurrent symptoms of right upper quadrant abdominal pain radiating to epigastrium, nausea vomiting. Pain is 10/10. She has had several episodes since her last admission in January 2021. However, another episodes they were not as severe and patient did not come to the hospital as she was trying to avoid COVID exposure. This time the pain was too intense and she came to the ED. In ED labs consistent with biliary obstruction with direct bilirubin of 2.3, alk-phos of 815, GGT of 1059, lipase 93. CT scan showed intrahepatic biliary duct dilatation as well as dilatation of the common hepatic duct to 1.3 cm abruptly narrowing at the confluence with the dilated cystic duct, prominence of the pancreatic head and ill-defined surrounding peripancreatic fat planes, possible pancreatitis. Differential includes CBD inflammation, biliary neoplasm, pancreatic neoplasm, pancreatitis. Review of Systems Review of Systems: Constitutional: Denies fever, denies Chills, + pruritis Eyes: denies blurry vision ENT: denies sore throat CVS: denies chest pain Respiratory: Denies dyspnea GI: abdominal pain : denies dysuria MSK: denies neck pain Skin: denies rash Neuro: denies specific motor weakness Psych: denies suicidal ideation Endocrine: denies heat/cold intolerance Hematologic: denies easy bleeding Allergy: denies hives [facility] Medical History Encounter for screening colonoscopy Kidney stones Microscopic hematuria Right thyroid nodule Screening for colon cancer Family History Father Pancreatic cancer Mother Pancreatic cancer Social History Household Members: None Housing: Apartment Alcohol intake: never Patient Tobacco Use Status: Current everyday Tobacco user Tobacco use type: Cigarette Cigarettes Per Day: 2 Substance Use Type: Marijuana Advance Directives: Yes Advance Directives on File: Yes Advance Directives Date on File: 01/24/21 service: No Current occupational status: employed and unemployed 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 Meds Allergies Allergy/AdvReac Type Severity Reaction Status Date / Time No Known Allergies Allergy Verified 04/29/21 11:50 [No Known Allergies*] Active Medications: Current Medications Albuterol Sulfate (Albuterol Sulfate 90 Mcg 8 Gm Inhaler) 2 puff INHALE Q4H PRN PRN Reason: shortness of breath or wheezing Atorvastatin Calcium (Atorvastatin Calcium 20 Mg Tablet) 20 mg PO BEDTIME [facility] Dicyclomine HCl (Dicyclomine Hcl 10 Mg Capsule) 20 mg PO QID PRN PRN Reason: Abdominal Discomfort Diphenhydramine HCl (Diphenhydramine Hcl 50 Mg/Ml Vial) 25 mg IVPUSH Q6H PRN PRN Reason: pruritis Hydromorphone HCl (Hydromorphone Hcl 0.5 Mg/0.5 Ml Syringe) 0.5 mg IVPUSH Q4H PRN; Protocol PRN Reason: moderate pain Nicotine (Nicotine 14 Mg Patch.Td24) mg TRANSDERMA DAILY [facility] Non-Formulary Medication (Pyridoxine (Vitamin B6)) 100 mg PO DAILY [facility] Omeprazole (Omeprazole 20 Mg Capsule.) 20 mg PO DAILY@0630 [facility] Pharmacy Consult (Consult Rx Perform Med Rec) 1 each MISCELLANE ONCE PRN PRN Reason: Consult order Quetiapine Fumarate (Quetiapine Fumarate 25 Mg Tablet) 25 mg PO BID@1000,1500 [facility] Quetiapine Fumarate (Quetiapine Fumarate 300 Mg Tablet) 300 mg PO BEDTIME [facility] Vitamin D (Cholecalciferol (Vitamin D3) 25 Mcg Tablet) 50 mcg PO DAILY [facility] Home Medications Medication Instructions Recorded Confirmed Last Taken Type dicyclomine 10 mg capsule 2 cap PO QID PRN 05/30/21 05/30/21 05/27/21 History omeprazole 20 mg capsule,delayed 20 mg PO DAILY@0630 05/30/21 05/30/21 05/27/21 History release ondansetron HCl 4 mg tablet 4 tab PO Q6H PRN 05/30/21 05/30/21 05/27/21 History quetiapine 25 mg tablet 25 mg PO BID@1000,1500 05/30/21 05/30/21 05/27/21 History Physical Exam Vital Signs and Narrative: Vital Signs: Last Vital Signs Temp 98.2 F 05/30/21 07:13 Pulse 58 05/30/21 07:13 Resp 16 05/30/21 07:13 BP 111/61 05/30/21 07:13 Pulse Ox 98 05/30/21 07:13 BMI result Body Mass Index 20.9 General: in pain HEENT: atraumatic Neck: normal to visual inspection CVS: S1, S2, RRR Resp: CTA bilateral Chest: ruq tender GI: soft, non tender, non distended : no CVA tenderness Skin: no rashes Extremities: no edema Neuro: Oriented X3, grossly intact Psych: cooperative Results Labs CBC and Chem 7: 05/29/21 22:04 05/29/21 22:04 Labs: Laboratory Results - last 24 hr 05/29/21 05/29/21 05/29/21 22:04 22:04 22:11 MCV 90.3 MCH 30.5 MCHC 33.8 RDW 15.2 Plt Count 280 MPV 10.4 Immature Gran % (Auto) 0.3 Neut % (Auto) 61.4 Lymph % (Auto) 25.4 [place] % (Auto) 9.6 Eos % (Auto) 2.9 Baso % (Auto) 0.4 Lymph # (Auto) 1.9 [place] # (Auto) 0.7 Eos # (Auto) 0.2 Baso # (Auto) 0.0 Abs Immat Gran (auto) 0.02 Absolute Neuts (auto) 4.5 Absolute Nucleated RBC 0.000 Nucleated RBC % (auto) 0.0 Anion Gap 10 L Estim Creat Clear Calc 81.5 Estimated GFR > 60 Random Glucose 110 Calcium 9.6 Total Bilirubin 2.7 H Direct Bilirubin 2.3 H GGT 1059 H AST 105 H ALT 233 H Alkaline Phosphatase 815 H D Total Protein 6.7 Albumin 4.0 Lipase 93 H Urine Color DK YELLOW Urine Appearance HAZY Urine pH 7.5 Ur Specific [place] 1.015 Urine Protein NEG Urine Glucose (UA) NEG Urine Ketones NEG Urine Blood 2+ H Urine Nitrite NEG Ur Leukocyte Esterase NEG Urine RBC 1-4 Urine WBC 0 Ur Squamous Epith Cells 1+ Amorphous Sediment 2+ Urine Bacteria 1+ Urine Mucus 1+ COVID-19 (BHARAT) COVID-19 Clin Com 05/30/21 07:17 MCV MCH MCHC RDW Plt Count MPV Immature Gran % (Auto) Neut % (Auto) Lymph % (Auto) [place] % (Auto) Eos % (Auto) Baso % (Auto) Lymph # (Auto) [place] # (Auto) Eos # (Auto) Baso # (Auto) Abs Immat Gran (auto) Absolute Neuts (auto) Absolute Nucleated RBC Nucleated RBC % (auto) Anion Gap Estim Creat Clear Calc Estimated GFR Random Glucose Calcium Total Bilirubin Direct Bilirubin GGT AST ALT Alkaline Phosphatase Total Protein Albumin Lipase Urine Color Urine Appearance Urine pH Ur Specific [place] Urine Protein Urine Glucose (UA) Urine Ketones Urine Blood Urine Nitrite Ur Leukocyte Esterase Urine RBC Urine WBC Ur Squamous Epith Cells Amorphous Sediment Urine Bacteria Urine Mucus COVID-19 (BHARAT) Negative COVID-19 Clin Com See Note Imaging Radiologist's Impressions: Impressions Abdomen/Pelvis CT 05/30/21 04:30 IMPRESSION: * There is new moderate intrahepatic biliary duct dilatation, as well as dilatation of the common hepatic duct to 1.3 cm, which abruptly narrows at the confluence with the dilated cystic duct, with associated biliary / peribiliary hyperemia within the pancreatic head (see whitley images). There is prominence of the pancreatic head and ill-definition of the surrounding peripancreatic fat planes, which could relate to pancreatitis, with the aforementioned findings related to inflammatory narrowing of the common bile duct. Of course, biliary neoplasm (cholangiocarcinoma) or pancreatic neoplasm must also be considered. Recommend MRI/MRCP without and with contrast for further evaluation. * Right nonobstructive intrarenal calculi. Assessment and Plan (1) Pancreatitis: Status: Acute 51F presented with abdominal pain, found to have recurrent biliary obstruction acute recurrent biliary obstruction differential includes: acute pancreatitis, pancreatic or biliary neoplasm, biliary inflammation IVF, clears, dilaudid monitor lfts GI eval MRCP Quality Stroke Does the patient have a stroke diagnosis?: No VTE Prior VTE?: No VTE Risk Level:: Medical - moderate - high VTE Device Contraindication: Treatment Not Indicated VTE Drug Contraindication: N/A - Med Ordered
[2021-05-30] MEDS: HYDROmorphone HCl 0.5 MG/0.5 ML SYRINGE IVPUSH ×3 (09:51→21:14)
[2021-05-30] MEDS: Dicyclomine HCl 10 MG CAPSULE 20 MG PO (11:01)
[2021-05-30] MEDS: diphenhydrAMINE HCL 50 MG/ML VIAL 25 MG IVPUSH ×3 (11:01→23:26)
[2021-05-30] MEDS: QUEtiapine Fumarate 25 MG TABLET PO ×2 (11:01→16:19)
[2021-05-30] MEDS: Lactated Ringers 1,000 ML 125 ML IVCONT ×3 (11:02→21:25)
[2021-05-30] MEDS: Enoxaparin Sodium 40 MG/0.4 ML SYRINGE SUBCUT (11:02)
--- NOTE | 2021-05-30 11:50 | CONS_ITS ---
DATE OF SERVICE: 05/30/2021 REFERRING PHYSICIAN: Valerio Sidhu MD REASON FOR CONSULTATION: Pancreatitis. HISTORY OF PRESENT ILLNESS: The patient is a pleasant 51-year-old woman who was admitted to the hospital after presenting to the emergency room with complaints of abdominal pain, nausea, and vomiting. She has a history of pancreatitis and was hospitalized in January. She was seen in followup in the office in February and again in May by Dr. Kendrick and has had persistent complaints of epigastric pain radiating into the lower back, nausea, anorexia, and vomiting. Symptoms worsened the 24 hours prior to admission, and she presented to the emergency room where she was evaluated and admitted to the hospital. Evaluation in the emergency room did show some elevation of her liver function tests, and CT scanning was obtained, which is reviewed. This is interpreted as showing moderate intrahepatic biliary ductal dilation and dilation of the common hepatic duct to 1.3 cm, which narrows within the pancreatic head. No definite mass was seen and MRI has been ordered. The patient denies any alcohol use, although she does have a history of alcohol abuse in the past. The etiology of her pancreatitis was thought to be idiopathic, and she had been scheduled for an outpatient MRI. PAST MEDICAL HISTORY: 1. Pancreatitis as above. 2. Hyperlipidemia. 3. Depression. 4. Remote history of alcohol abuse. CURRENT MEDICATIONS: Her current medication list is reviewed in the chart. ALLERGIES: THERE ARE NONE REPORTED. FAMILY HISTORY: Positive for pancreatic cancer in both. SOCIAL HISTORY: She does smoke. She denies alcohol use. REVIEW OF SYSTEMS: SKIN: No pruritus. HEENT: Negative. CARDIOPULMONARY: No shortness of breath or chest pain. GASTROINTESTINAL: As above. GENITOURINARY: Negative. NEUROPSYCHIATRIC: Negative. PHYSICAL EXAMINATION: GENERAL: Shows a pleasant female, sitting comfortably in bed. VITAL SIGNS: Reviewed in the electronic medical record and are stable. She has been afebrile. SKIN: Anicteric. HEENT: Shows no scleral icterus. NECK: Without lymphadenopathy or thyromegaly. LUNGS: Clear. HEART: Shows regular rate and rhythm. S1, S2. No murmur. ABDOMEN: Soft without focal masses or tenderness. There is some mild tenderness to epigastric palpation. No masses palpable. Bowel sounds are present. No organomegaly is noted. EXTREMITIES: Without edema. LABORATORY DATA: Shows a white blood cell count of 7.4, hematocrit 40. Total bilirubin is elevated at 2.7 with an alkaline phosphatase of 815, AST is 105 with an ALT of 33. Triglycerides were normal in March at 154. Lipase is elevated to 93. CT scanning is reviewed. IMPRESSION: Pancreatitis. This appears to be consistent with idiopathic pancreatitis based on her presentation and workup to date including her evaluation in January. At this time, I recommend obtaining MRI imaging for further evaluation of her biliary and pancreatic system. She may need eventual endoscopic ultrasound. If her MRI shows a definite stricture, ERCP could be considered, although it appears that her liver function test elevations are likely related to her pancreatitis. I would recommend repeating IgG subclass levels to evaluate for any evidence of autoimmune pancreatitis. These were obtained in January and showed no IgG4 abnormalities. Thanks for asking me to see her. I will follow her in the hospital with you. MD CEDRICK Olson/JANE / [id number]
[2021-05-30] MEDS: Albuterol Sulfate 90 MCG 8 GM INHALER 2 PUFF INHALE (12:51)
[2021-05-30] MEDS: Atorvastatin Calcium 20 MG TABLET PO (21:14)
[2021-05-30] MEDS: QUEtiapine Fumarate 300 MG TABLET PO (21:14)
[2021-05-31] MEDS: HYDROmorphone HCl 0.5 MG/0.5 ML SYRINGE IVPUSH ×2 (02:39→06:16)
[2021-05-31 05:51] LABS: Hematocrit 36.5 % (37.0-47.0); Hemoglobin 12.3 g/dl (12.0-16.0); Mean Corpuscular HGB Conc 33.7 g/dl (31.0-35.0); Mean Corpuscular Hemoglobin 30.4 pg (27.0-33.0); Mean Corpuscular Volume 90.1 fL (80.0-98.0); Mean Platelet Volume 10.5 fL (9.4-12.3); Platelet Count 246 X10*3/uL (160-400); Red Blood Count 4.05 X10*6/uL (4.20-5.50); Red Cell Distribution Width 15.3 % (11.0-16.0); White Blood Count 4.7 X10*3/uL (4.8-10.8)
[2021-05-31] MEDS: diphenhydrAMINE HCL 50 MG/ML VIAL 25 MG IVPUSH ×3 (06:03→15:59)
[2021-05-31] MEDS: Omeprazole 20 MG CAPSULE.DR PO (06:04)
[2021-05-31] MEDS: Lactated Ringers 1,000 ML 125 ML IVCONT ×2 (06:04→20:08)
[2021-05-31 06:20] LABS: Alanine Aminotransferase 184 U/L (0-31); Albumin Level 3.5 g/dL (3.5-5.0); Alkaline Phosphatase 811 U/L (39-117); Anion Gap 11 (12-20); Aspartate Amino Transferase 88 U/L (5-31); Bilirubin Direct 1.6 mg/dL (0.0-0.5); Bilirubin Total 2.1 mg/dL (0.0-1.0); Blood Urea Nitrogen 4 mg/dL (9-16); Calcium 9.5 mg/dL (8.4-10.2); Carbon Dioxide 27 mmol/L (22-29); Chloride 107 mmol/L (96-108); Creatinine Clr Calc Pharmacy 93.8; Estimated Glomerular Filt Rate > 60; Glucose Fasting 96 mg/dL (60-99); Sodium 141 mmol/L (135-145); Total Protein 5.9 g/dL (6.5-8.0)
[2021-05-31 07:51] VITALS: BP 100/55; PULSE 66; RESP 17; TEMP 36.5; O2SAT 97
[2021-05-31] MEDS: QUEtiapine Fumarate 25 MG TABLET PO ×2 (08:21→15:49)
[2021-05-31] MEDS: Cholecalciferol (Vitamin D3) 25 MCG TABLET 50 MCG PO (08:21)
[2021-05-31] MEDS: Nicotine 14 MG PATCH.TD24 TRANSDERMA (08:22)
[2021-05-31] MEDS: Enoxaparin Sodium 40 MG/0.4 ML SYRINGE SUBCUT (08:22)
--- NOTE | 2021-05-31 09:53 | P.PNIM_ITS ---
Subjective Subjective Date of Service: 05/31/21 Interval History: cc: abd pain interval history: stil with pain and pruritis, but would like to advance to solids Cardiovascular Cardiovascular: Reports no additional cardiovascular complaints Respiratory Respiratory: Reports no additional respiratory complaints Physical Exam Vital Signs: Vital Signs: Last Vital Signs Temp 97.7 F 05/31/21 07:51 Pulse 66 05/31/21 07:51 Resp 17 05/31/21 07:51 BP 100/55 L 05/31/21 07:51 Pulse Ox 97 05/31/21 07:51 BMI result Body Mass Index 20.9 General: AO X 3, no acute distress Resp: CTA bilateral, no accessory muscles used CVS: S1,S2,RRR GI: soft, mildly tender, non distended Neuro: motor grossly intact, alert Psych: appropriate affect, appropriate insight Objective Data Active Medications Albuterol Sulfate (Albuterol Sulfate 90 Mcg 8 Gm Inhaler) 2 puff INHALE Q4H PRN PRN Reason: shortness of breath or wheezing Last Admin: 05/30/21 12:51 Dose: 2 puff Documented by: SONNY Atorvastatin Calcium (Atorvastatin Calcium 20 Mg Tablet) 20 mg PO BEDTIME MICHEL Last Admin: 05/30/21 21:14 Dose: 20 mg Documented by: DAYDAY Dicyclomine HCl (Dicyclomine Hcl 10 Mg Capsule) 20 mg PO QID PRN PRN Reason: Abdominal Discomfort Last Admin: 05/30/21 11:01 Dose: 20 mg Documented by: MONIKA Diphenhydramine HCl (Diphenhydramine Hcl 50 Mg/Ml Vial) 25 mg IVPUSH Q4H PRN PRN Reason: pruritis Enoxaparin Sodium (Enoxaparin Sodium 40 Mg/0.4 Ml Syringe) 40 mg SUBCUT Q24H MICHEL Last Admin: 05/31/21 08:22 Dose: 40 mg Documented by: RAVIN Hydromorphone HCl (Hydromorphone Hcl 1 Mg/Ml Syringe) 0.5 mg IVPUSH Q3H PRN; Protocol PRN Reason: moderate pain Lactated Ringer's (Lr) 1,000 mls @ 125 mls/hr IVCONT .Q8H MICHEL Last Admin: 05/31/21 06:04 Dose: 125 mls/hr Documented by: DAYDAY Nicotine (Nicotine 14 Mg Patch.Td24) 14 mg TRANSDERMA DAILY [facility] Last Admin: 05/31/21 08:22 Dose: 14 mg Documented by: RAVIN Omeprazole (Omeprazole 20 Mg Capsule.) 20 mg PO DAILY@0630 [facility] Last Admin: 05/31/21 06:04 Dose: 20 mg Documented by: DAYDAY Pharmacy Consult (Consult Rx Perform Med Rec) 1 each MISCELLANE ONCE PRN PRN Reason: Consult order Pyridoxine HCl (Pyridoxine Hcl (Vitamin B6) 50 Mg Tablet) 100 mg PO DAILY [facility] Quetiapine Fumarate (Quetiapine Fumarate 25 Mg Tablet) 25 mg PO BID@1000,1500 [facility] Last Admin: 05/31/21 08:21 Dose: 25 mg Documented by: RAVIN Quetiapine Fumarate (Quetiapine Fumarate 300 Mg Tablet) 300 mg PO BEDTIME [facility] Last Admin: 05/30/21 21:14 Dose: 300 mg Documented by: DAYDAY Sodium Chloride (0.9 % Sodium Chloride Flush 3 Ml Syringe) 3 ml IVFLUSH QSHIFT [facility] Last Admin: 05/31/21 08:14 Dose: Not Given Documented by: RAVIN Non-Admin Reason: IV Running Vitamin D (Cholecalciferol (Vitamin D3) 25 Mcg Tablet) 50 mcg PO DAILY [facility] Last Admin: 05/31/21 08:21 Dose: 50 mcg Documented by: RAVIN Labs CBC & Chem 7: 05/31/21 05:21 05/31/21 05:21 Labs: Laboratory Results - last 24 hr 05/31/21 05/31/21 05:21 05:21 MCV 90.1 MCH 30.4 MCHC 33.7 RDW 15.3 Plt Count 246 MPV 10.5 Absolute Nucleated RBC 0.000 Nucleated RBC % (auto) 0.0 Anion Gap 11 L Estim Creat Clear Calc 93.8 Estimated GFR > 60 Fasting Glucose 96 Calcium 9.5 Total Bilirubin 2.1 H Direct Bilirubin 1.6 H AST 88 H ALT 184 H Alkaline Phosphatase 811 H Total Protein 5.9 L Albumin 3.5 Assessment and Plan (1) Pancreatitis: Status: Acute Assessment and Plan: ?51F presented with abdominal pain, found to have recurrent biliary obstruction acute recurrent pancreatitis acute pancreatitis etiology unclear, differential includes: pancreatic or biliary neoplasm, biliary inflammation IVF, advance to solids, dilaudid monitor lfts GI following MRCP Quality Stroke Does the patient have a stroke diagnosis?: No VTE Prior VTE?: No VTE Risk Level:: Medical - moderate - high VTE Device Contraindication: Treatment Not Indicated VTE Drug Contraindication: N/A - Med Ordered
[2021-05-31] MEDS: HYDROmorphone HCl 1 MG/ML SYRINGE 0.5 MG IVPUSH ×3 (10:53→20:07)
--- NOTE | 2021-05-31 11:00 | MHC.CM.PN ---
CM MET WITH PT WHO REPORTS SHE LIVES ALONE AND IS INDEPENDENT. PT HAS NO SERVICES AND NO DME. PT CONFIRMS HER PCP IS KADY NICOLE. PT HAS A HCP ON FILE NAMING HER SONS, MARZENA ([phone]) AND VLAD ([phone]) HER PRIMARY AND ALTERNATE AGENTS RESPECTIVELY. CURRENT DC PLAN IS HOME WITH NO SERVICES PT WILL SELF ARRANGE TRANSPORT
--- NOTE | 2021-05-31 11:54 | P.PNGI_ITS ---
Subjective Subjective Date of Service: 05/31/21 Interval History: looks comfortable, states pain meds help Critical Care Time (minutes): 0 Physical Exam Vital Signs: Vital Signs: Last Vital Signs Temp 97.7 F 05/31/21 07:51 Pulse 66 05/31/21 07:51 Resp 17 05/31/21 07:51 BP 100/55 L 05/31/21 07:51 Pulse Ox 97 05/31/21 07:51 BMI result Body Mass Index 20.9 Const: Other: no distress GI: Other: abdomen is soft and nontender Objective Data Labs CBC & Chem 7: 05/31/21 05:21 05/31/21 05:21 Labs: labs reviewed Procedures Date of Service Date of Service: 05/31/21 Progress Note: A&P Assessment and plan (1) Pancreatitis: Status: Acute Assessment and Plan: lfts improving mri pending continue present management. Fall Risk Details Current Medications: Current Medications Albuterol Sulfate (Albuterol Sulfate 90 Mcg 8 Gm Inhaler) 2 puff INHALE Q4H PRN PRN Reason: shortness of breath or wheezing Last Admin: 05/30/21 12:51 Dose: 2 puff Documented by: Atorvastatin Calcium (Atorvastatin Calcium 20 Mg Tablet) 20 mg PO BEDTIME [facility] Last Admin: 05/30/21 21:14 Dose: 20 mg Documented by: Dicyclomine HCl (Dicyclomine Hcl 10 Mg Capsule) 20 mg PO QID PRN PRN Reason: Abdominal Discomfort Last Admin: 05/30/21 11:01 Dose: 20 mg Documented by: Diphenhydramine HCl (Diphenhydramine Hcl 50 Mg/Ml Vial) 25 mg IVPUSH Q4H PRN PRN Reason: pruritis Last Admin: 05/31/21 10:53 Dose: 25 mg Documented by: Enoxaparin Sodium (Enoxaparin Sodium 40 Mg/0.4 Ml Syringe) 40 mg SUBCUT Q24H [facility] Last Admin: 05/31/21 08:22 Dose: 40 mg Documented by: Hydromorphone HCl (Hydromorphone Hcl 1 Mg/Ml Syringe) 0.5 mg IVPUSH Q3H PRN; Protocol PRN Reason: moderate pain Last Admin: 05/31/21 10:53 Dose: 0.5 mg Documented by: Lactated Ringer's (Lr) 1,000 mls @ 125 mls/hr IVCONT .Q8H [facility] Last Admin: 05/31/21 06:04 Dose: 125 mls/hr Documented by: Nicotine (Nicotine 14 Mg Patch.Td24) 14 mg TRANSDERMA DAILY [facility] Last Admin: 05/31/21 08:22 Dose: 14 mg Documented by: Omeprazole (Omeprazole 20 Mg Capsule.Dr) 20 mg PO DAILY@0630 [facility] Last Admin: 05/31/21 06:04 Dose: 20 mg Documented by: Pharmacy Consult (Consult Rx Perform Med Rec) 1 each MISCELLANE ONCE PRN PRN Reason: Consult order Pyridoxine HCl (Pyridoxine Hcl (Vitamin B6) 50 Mg Tablet) 100 mg PO DAILY [facility] Quetiapine Fumarate (Quetiapine Fumarate 25 Mg Tablet) 25 mg PO BID@1000,1500 [facility] Last Admin: 05/31/21 08:21 Dose: 25 mg Documented by: Quetiapine Fumarate (Quetiapine Fumarate 300 Mg Tablet) 300 mg PO BEDTIME [facility] Last Admin: 05/30/21 21:14 Dose: 300 mg Documented by: Sodium Chloride (0.9 % Sodium Chloride Flush 3 Ml Syringe) 3 ml IVFLUSH QSHIFT [facility] Last Admin: 05/31/21 08:14 Dose: Not Given Documented by: Vitamin D (Cholecalciferol (Vitamin D3) 25 Mcg Tablet) 50 mcg PO DAILY [facility] Last Admin: 05/31/21 08:21 Dose: 50 mcg Documented by: Time Spent With Patient Time: Total time spent is greater than 50% in coordination of care (as d ocumented) at patient's floor/unit and/or counseling patient: Time with patient: 15 - 24 minutes Quality Stroke Does the patient have a stroke diagnosis?: No VTE Prior VTE?: No VTE Risk Level:: Medical - moderate - high VTE Device Contraindication: Treatment Not Indicated VTE Drug Contraindication: N/A - Med Ordered
[2021-05-31] MEDS: Pyridoxine HCl (Vitamin B6) 50 MG TABLET 100 MG PO (12:57)
[2021-05-31] MEDS: ondansetron HCL 4 MG/2 ML VIAL IVPUSH (15:48)
[2021-05-31] MEDS: 0.9 % Sodium Chloride Flush 3 ML SYRINGE IVFLUSH (15:49)
[2021-05-31 15:54] VITALS: BP 122/74; PULSE 62; RESP 17; TEMP 36.6; O2SAT 98
[2021-05-31] MEDS: QUEtiapine Fumarate 300 MG TABLET PO (20:07)
[2021-05-31] MEDS: Atorvastatin Calcium 20 MG TABLET PO (20:07)
[2021-05-31 23:59] VITALS: BP 96/51; PULSE 72; RESP 16; TEMP 36.3; O2SAT 95
[2021-06-01] MEDS: diphenhydrAMINE HCL 50 MG/ML VIAL 25 MG IVPUSH ×5 (00:54→20:58)
[2021-06-01] MEDS: HYDROmorphone HCl 1 MG/ML SYRINGE 0.5 MG IVPUSH ×6 (00:55→20:59)
[2021-06-01] MEDS: Lactated Ringers 1,000 ML 125 ML IVCONT ×3 (05:04→23:40)
[2021-06-01] MEDS: Omeprazole 20 MG CAPSULE.DR PO (05:10)
[2021-06-01 07:19] VITALS: BP 98/50; PULSE 63; RESP 17; TEMP 36; O2SAT 98
[2021-06-01 07:46] LABS: Hematocrit 35.8 % (37.0-47.0); Hemoglobin 12.2 g/dl (12.0-16.0); Mean Corpuscular HGB Conc 34.1 g/dl (31.0-35.0); Mean Corpuscular Hemoglobin 30.8 pg (27.0-33.0); Mean Corpuscular Volume 90.4 fL (80.0-98.0); Mean Platelet Volume 10.6 fL (9.4-12.3); Platelet Count 266 X10*3/uL (160-400); Red Blood Count 3.96 X10*6/uL (4.20-5.50); Red Cell Distribution Width 15.6 % (11.0-16.0); White Blood Count 5.2 X10*3/uL (4.8-10.8)
[2021-06-01 08:00] LABS: Lipase 24 U/L (8-78)
[2021-06-01 08:12] LABS: Alanine Aminotransferase 184 U/L (0-31); Albumin Level 3.4 g/dL (3.5-5.0); Alkaline Phosphatase 805 U/L (39-117); Anion Gap 11 (12-20); Aspartate Amino Transferase 93 U/L (5-31); Bilirubin Direct 1.7 mg/dL (0.0-0.5); Bilirubin Total 2.1 mg/dL (0.0-1.0); Blood Urea Nitrogen 5 mg/dL (9-16); Calcium 9.6 mg/dL (8.4-10.2); Carbon Dioxide 26 mmol/L (22-29); Chloride 107 mmol/L (96-108); Creatinine Clr Calc Pharmacy 93.8; Estimated Glomerular Filt Rate > 60; Glucose Fasting 87 mg/dL (60-99); Potassium 3.9 mmol/L (3.3-5.1); Sodium 140 mmol/L (135-145); Total Protein 5.8 g/dL (6.5-8.0)
--- NOTE | 2021-06-01 10:01 | P.PNIM_ITS ---
Subjective Subjective Date of Service: 06/01/21 Interval History: cc: abd pain interval history: overall better, but did not tolerated solids yesterday and would like to go back to clear liquids Cardiovascular Cardiovascular: Reports no additional cardiovascular complaints Respiratory Respiratory: Reports no additional respiratory complaints Physical Exam Vital Signs: Vital Signs: Last Vital Signs Temp 96.8 F 06/01/21 07:19 Pulse 63 06/01/21 07:19 Resp 17 06/01/21 07:19 BP 98/50 L 06/01/21 07:19 Pulse Ox 98 06/01/21 07:19 BMI result Body Mass Index 20.9 General: AO X 3, no acute distress Resp:? CTA bilateral, no accessory muscles used CVS: S1,S2,RRR GI: soft, mildly tender, non distended Neuro:? motor grossly intact, alert Psych: appropriate affect, appropriate insight? Objective Data Active Medications Albuterol Sulfate (Albuterol Sulfate 90 Mcg 8 Gm Inhaler) 2 puff INHALE Q4H PRN PRN Reason: shortness of breath or wheezing Last Admin: 05/30/21 12:51 Dose: 2 puff Documented by: SONNY Atorvastatin Calcium (Atorvastatin Calcium 20 Mg Tablet) 20 mg PO BEDTIME [facility] Last Admin: 05/31/21 20:07 Dose: 20 mg Documented by: DAYDAY Dicyclomine HCl (Dicyclomine Hcl 10 Mg Capsule) 20 mg PO QID PRN PRN Reason: Abdominal Discomfort Last Admin: 05/30/21 11:01 Dose: 20 mg Documented by: MONIKA Diphenhydramine HCl (Diphenhydramine Hcl 50 Mg/Ml Vial) 25 mg IVPUSH Q4H PRN PRN Reason: pruritis Last Admin: 06/01/21 08:27 Dose: 25 mg Documented by: ZEUS Enoxaparin Sodium (Enoxaparin Sodium 40 Mg/0.4 Ml Syringe) 40 mg SUBCUT Q24H [facility] Last Admin: 05/31/21 08:22 Dose: 40 mg Documented by: RAVIN Hydromorphone HCl (Hydromorphone Hcl 1 Mg/Ml Syringe) 0.5 mg IVPUSH Q3H PRN; Protocol PRN Reason: moderate pain Last Admin: 06/01/21 08:27 Dose: 0.5 mg Documented by: ZEUS Lactated Ringer's (Lr) 1,000 mls @ 125 mls/hr IVCONT .Q8H [facility] Last Admin: 06/01/21 05:04 Dose: 125 mls/hr Documented by: DAYDAY Nicotine (Nicotine 14 Mg Patch.Td24) 14 mg TRANSDERMA DAILY [facility] Last Admin: 05/31/21 08:22 Dose: 14 mg Documented by: RAVIN Omeprazole (Omeprazole 20 Mg Capsule.Dr) 20 mg PO DAILY@0630 [facility] Last Admin: 06/01/21 05:10 Dose: 20 mg Documented by: DAYDAY Ondansetron HCl (Ondansetron Hcl 4 Mg/2 Ml Vial) 4 mg IVPUSH Q6H PRN PRN Reason: nausea Last Admin: 05/31/21 15:48 Dose: 4 mg Documented by: RAVIN Pharmacy Consult (Consult Rx Perform Med Rec) 1 each MISCELLANE ONCE PRN PRN Reason: Consult order Pyridoxine HCl (Pyridoxine Hcl (Vitamin B6) 50 Mg Tablet) 100 mg PO DAILY [facility] Last Admin: 05/31/21 12:57 Dose: 100 mg Documented by: RAVIN Quetiapine Fumarate (Quetiapine Fumarate 25 Mg Tablet) 25 mg PO BID@1000,1500 [facility] Last Admin: 05/31/21 15:49 Dose: 25 mg Documented by: RAVIN Quetiapine Fumarate (Quetiapine Fumarate 300 Mg Tablet) 300 mg PO BEDTIME [facility] Last Admin: 05/31/21 20:07 Dose: 300 mg Documented by: DAYDAY Sodium Chloride (0.9 % Sodium Chloride Flush 3 Ml Syringe) 3 ml IVFLUSH QSHIFT [facility] Last Admin: 06/01/21 01:02 Dose: Not Given Documented by: DAYDAY Non-Admin Reason: IV Running Vitamin D (Cholecalciferol (Vitamin D3) 25 Mcg Tablet) 50 mcg PO DAILY [facility] Last Admin: 05/31/21 08:21 Dose: 50 mcg Documented by: RAVIN Labs CBC & Chem 7: 06/01/21 06:56 06/01/21 06:56 Labs: Laboratory Results - last 24 hr 06/01/21 06/01/21 06/01/21 06:56 06:56 06:57 MCV 90.4 MCH 30.8 MCHC 34.1 RDW 15.6 Plt Count 266 MPV 10.6 Absolute Nucleated RBC 0.000 Nucleated RBC % (auto) 0.0 Anion Gap 11 L Estim Creat Clear Calc 93.8 Estimated GFR > 60 Fasting Glucose 87 Calcium 9.6 Total Bilirubin 2.1 H Direct Bilirubin 1.7 H AST 93 H ALT 184 H Alkaline Phosphatase 805 H Total Protein 5.8 L Albumin 3.4 L Lipase 24 Assessment and Plan (1) Pancreatitis: Status: Acute Assessment and Plan: ?51F presented with abdominal pain, found to have recurrent biliary obstruction acute recurrent pancreatitis acute pancreatitis etiology unclear, differential includes: pancreatic or biliary neoplasm, biliary inflammation did not tolerate solids yesterday, will go back to clear liwuids, continue ivf and pain meds monitor lfts GI following follow up MRCP Quality Stroke Does the patient have a stroke diagnosis?: No VTE Prior VTE?: No VTE Risk Level:: Medical - moderate - high VTE Device Contraindication: Treatment Not Indicated VTE Drug Contraindication: N/A - Med Ordered
[2021-06-01] MEDS: Nicotine 14 MG PATCH.TD24 TRANSDERMA (10:27)
[2021-06-01] MEDS: QUEtiapine Fumarate 25 MG TABLET PO ×2 (10:27→14:25)
[2021-06-01] MEDS: Cholecalciferol (Vitamin D3) 25 MCG TABLET 50 MCG PO (10:27)
[2021-06-01] MEDS: Pyridoxine HCl (Vitamin B6) 50 MG TABLET 100 MG PO (10:27)
[2021-06-01] MEDS: Enoxaparin Sodium 40 MG/0.4 ML SYRINGE SUBCUT (10:28)
[2021-06-01] MEDS: ondansetron HCL 4 MG/2 ML VIAL IVPUSH ×2 (12:53→20:59)
[2021-06-01 15:17] VITALS: BP 120/63; PULSE 66; RESP 18; TEMP 37; O2SAT 99
--- NOTE | 2021-06-01 17:07 | PM.GIPN ---
Subjective Subjective Date of Service: 06/01/21 Interval History: Patient reports less discomfort but still with nausea and some pruritus; denies vomiting; passing gas but no BM's; appetite is down; receiving clear liquids Critical Care Time (minutes): 0 Physical Exam Vital Signs: Vital Signs: Last Vital Signs Temp 98.6 F 06/01/21 15:17 Pulse 66 06/01/21 15:17 Resp 18 06/01/21 15:17 BP 120/63 06/01/21 15:17 Pulse Ox 99 06/01/21 15:17 BMI result Body Mass Index 20.9 Const: General: cooperative, healthy appearing, comfortable, no acute distress, well developed, alert and awake HENMT: Other: Anicteric sclerae, MMM GI: Other: Abd-Soft, Nondistended, +BS, no mass Objective Data Labs CBC & Chem 7: 06/01/21 06:56 06/01/21 06:56 Labs: Laboratory Results - last 24 hr 06/01/21 06/01/21 06/01/21 06:56 06:56 06:57 WBC 5.2 RBC 3.96 L Hgb 12.2 Hct 35.8 L MCV 90.4 MCH 30.8 MCHC 34.1 RDW 15.6 Plt Count 266 MPV 10.6 Absolute Nucleated RBC 0.000 Nucleated RBC % (auto) 0.0 Sodium 140 Potassium 3.9 Chloride 107 Carbon Dioxide 26 Anion Gap 11 L BUN 5 L Creatinine 0.66 Estim Creat Clear Calc 93.8 Estimated GFR > 60 Fasting Glucose 87 Calcium 9.6 Total Bilirubin 2.1 H Direct Bilirubin 1.7 H AST 93 H ALT 184 H Alkaline Phosphatase 805 H Total Protein 5.8 L Albumin 3.4 L Lipase 24 Imaging MRI - abdomen: Radiologist's impression: Dilated intrahepatic and extrahepatic biliary tree and GB, nonspecific inflammation and edema in uncinate process of pancreas but without definite mass, pancreatic duct in body and tail of pancreas is nondilated. Procedures Date of Service Date of Service: 06/01/21 Progress Note: A&P Assessment and plan (1) Pancreatitis: Status: Acute Assessment and Plan: Imp: Pancreatitis of unclear etiology with associated biliary obstruction with resultant elevated LFT's and pruritus due to edema at head of pancreas. 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 Ideally she will need at least an Endoscopic U/S for better evaluation of the head of the pancreas, but she may need an ERCP as well if the elevated LFT's persist. The EUS would have to be done at [facility]( pandemic restrictions permitting) and the ERCP could be done at the same setting. However, she may need the ERCP here first depending on her clinical course in the next 24-48hours regarding her LFT's and symptoms. However, given the associated component of pancreatitis, I would rather hold off on an ERCP so as not to exacerbate the pancreatitis for the time being if possible. D/W patient in detail. She is comfortable with this plan. Thanks Fall Risk Details Current Medications: Current Medications Albuterol Sulfate (Albuterol Sulfate 90 Mcg 8 Gm Inhaler) 2 puff INHALE Q4H PRN PRN Reason: shortness of breath or wheezing Last Admin: 05/30/21 12:51 Dose: 2 puff Documented by: Dicyclomine HCl (Dicyclomine Hcl 10 Mg Capsule) 20 mg PO QID PRN PRN Reason: Abdominal Discomfort Last Admin: 05/30/21 11:01 Dose: 20 mg Documented by: Diphenhydramine HCl (Diphenhydramine Hcl 50 Mg/Ml Vial) 25 mg IVPUSH Q4H PRN PRN Reason: pruritis Last Admin: 06/01/21 12:53 Dose: 25 mg Documented by: Enoxaparin Sodium (Enoxaparin Sodium 40 Mg/0.4 Ml Syringe) 40 mg SUBCUT Q24H [facility] Last Admin: 06/01/21 10:28 Dose: 40 mg Documented by: Hydromorphone HCl (Hydromorphone Hcl 1 Mg/Ml Syringe) 0.5 mg IVPUSH Q3H PRN; Protocol PRN Reason: moderate pain Last Admin: 06/01/21 12:54 Dose: 0.5 mg Documented by: Lactated Ringer's (Lr) 1,000 mls @ 125 mls/hr IVCONT .Q8H [facility] Last Admin: 06/01/21 14:26 Dose: 125 mls/hr Documented by: Nicotine (Nicotine 14 Mg Patch.Td24) 14 mg TRANSDERMA DAILY [facility] Last Admin: 06/01/21 10:27 Dose: 14 mg Documented by: Omeprazole (Omeprazole 20 Mg Capsule.Dr) 20 mg PO DAILY@0630 [facility] Last Admin: 06/01/21 05:10 Dose: 20 mg Documented by: Ondansetron HCl (Ondansetron Hcl 4 Mg/2 Ml Vial) 4 mg IVPUSH Q6H PRN PRN Reason: nausea Last Admin: 06/01/21 12:53 Dose: 4 mg Documented by: Pharmacy Consult (Consult Rx Perform Med Rec) 1 each MISCELLANE ONCE PRN PRN Reason: Consult order Pyridoxine HCl (Pyridoxine Hcl (Vitamin B6) 50 Mg Tablet) 100 mg PO DAILY [facility] Last Admin: 06/01/21 10:27 Dose: 100 mg Documented by: Quetiapine Fumarate (Quetiapine Fumarate 25 Mg Tablet) 25 mg PO BID@1000,1500 [facility] Last Admin: 06/01/21 14:25 Dose: 25 mg Documented by: Quetiapine Fumarate (Quetiapine Fumarate 300 Mg Tablet) 300 mg PO BEDTIME [facility] Last Admin: 05/31/21 20:07 Dose: 300 mg Documented by: Sodium Chloride (0.9 % Sodium Chloride Flush 3 Ml Syringe) 3 ml IVFLUSH QSHIFT [facility] Last Admin: 06/01/21 10:28 Dose: Not Given Documented by: Vitamin D (Cholecalciferol (Vitamin D3) 25 Mcg Tablet) 50 mcg PO DAILY [facility] Last Admin: 06/01/21 10:27 Dose: 50 mcg Documented by: Time Spent With Patient Time: Total time spent is greater than 50% in coordination of care (as documented) at patient's floor/unit and/or counseling patient: Time with patient: 25 - 35 minutes Quality Stroke Does the patient have a stroke diagnosis?: No VTE Prior VTE?: No VTE Risk Level:: Medical - moderate - high VTE Device Contraindication: Treatment Not Indicated VTE Drug Contraindication: N/A - Med Ordered
[2021-06-01] MEDS: 0.9 % Sodium Chloride Flush 3 ML SYRINGE IVFLUSH (17:24)
[2021-06-01 19:56] LABS: Immunoglobulin G Subclass 1 337 mg/dL (382-929); Immunoglobulin G Subclass 2 248 mg/dL (241-700); Immunoglobulin G Subclass 3 32 mg/dL (22-178); Immunoglobulin G Subclass 4 28.6 mg/dL (4-86); Immunoglobulin G Total 692 mg/dL (600-1640)
[2021-06-01] MEDS: QUEtiapine Fumarate 300 MG TABLET PO (20:57)
[2021-06-01 20:58] VITALS: BP 132/69; PULSE 62; RESP 18
[2021-06-01 20:59] VITALS: RESP 18
[2021-06-01 23:38] VITALS: BP 112/56; PULSE 64; RESP 16; TEMP 36.8; O2SAT 95
[2021-06-02 02:00] VITALS: RESP 17
[2021-06-02] MEDS: HYDROmorphone HCl 1 MG/ML SYRINGE 0.5 MG IVPUSH ×6 (02:00→23:19)
[2021-06-02 04:57] LABS: Hematocrit 36.7 % (37.0-47.0); Hemoglobin 12.5 g/dl (12.0-16.0); Mean Corpuscular HGB Conc 34.1 g/dl (31.0-35.0); Mean Corpuscular Hemoglobin 30.4 pg (27.0-33.0); Mean Corpuscular Volume 89.3 fL (80.0-98.0); Mean Platelet Volume 10.3 fL (9.4-12.3); Platelet Count 295 X10*3/uL (160-400); Red Blood Count 4.11 X10*6/uL (4.20-5.50); Red Cell Distribution Width 15.4 % (11.0-16.0); White Blood Count 5.3 X10*3/uL (4.8-10.8)
[2021-06-02 05:16] LABS: Alanine Aminotransferase 195 U/L (0-31); Albumin Level 3.4 g/dL (3.5-5.0); Alkaline Phosphatase 824 U/L (39-117); Anion Gap 12 (12-20); Aspartate Amino Transferase 116 U/L (5-31); Bilirubin Direct 2.2 mg/dL (0.0-0.5); Bilirubin Total 2.9 mg/dL (0.0-1.0); Blood Urea Nitrogen 5 mg/dL (9-16); Calcium 9.7 mg/dL (8.4-10.2); Carbon Dioxide 27 mmol/L (22-29); Chloride 107 mmol/L (96-108); Creatinine Clr Calc Pharmacy 89.8; Estimated Glomerular Filt Rate > 60; Glucose Fasting 99 mg/dL (60-99); Sodium 142 mmol/L (135-145); Total Protein 5.9 g/dL (6.5-8.0)
[2021-06-02 05:18] LABS: Lipase 33 U/L (8-78)
[2021-06-02 05:25] VITALS: BP 118/68; PULSE 62; RESP 16
[2021-06-02] MEDS: diphenhydrAMINE HCL 50 MG/ML VIAL 25 MG IVPUSH ×4 (05:26→20:16)
[2021-06-02 05:27] VITALS: RESP 16
[2021-06-02] MEDS: Omeprazole 20 MG CAPSULE.DR PO (05:29)
[2021-06-02 07:04] VITALS: BP 110/65; PULSE 67; RESP 20; TEMP 36.2; O2SAT 99
[2021-06-02] MEDS: Pyridoxine HCl (Vitamin B6) 50 MG TABLET 100 MG PO (07:51)
[2021-06-02] MEDS: Cholecalciferol (Vitamin D3) 25 MCG TABLET 50 MCG PO (07:51)
[2021-06-02] MEDS: Nicotine 14 MG PATCH.TD24 TRANSDERMA (07:52)
[2021-06-02] MEDS: Lactated Ringers 1,000 ML 125 ML IVCONT ×3 (08:00→22:11)
[2021-06-02] MEDS: QUEtiapine Fumarate 25 MG TABLET PO ×2 (09:24→14:14)
[2021-06-02] MEDS: Enoxaparin Sodium 40 MG/0.4 ML SYRINGE SUBCUT (09:24)
[2021-06-02 10:18] LABS: INTERNATIONAL NORM RATIO 1.2 (0.9-1.1); Prothrombin Time 13.4 SEC (9.9-13.0)
--- NOTE | 2021-06-02 11:37 | P.PNIM_ITS ---
Subjective Subjective Date of Service: 06/02/21 Interval History: cc: abd pain and prurutis interval history: still with pain and prurutis, but wants to advance to solids again Cardiovascular Cardiovascular: Reports no additional cardiovascular complaints Respiratory Respiratory: Reports no additional respiratory complaints Physical Exam Vital Signs: Vital Signs: Last Vital Signs Temp 97.1 F 06/02/21 07:04 Pulse 67 06/02/21 07:04 Resp 20 06/02/21 07:04 BP 110/65 06/02/21 07:04 Pulse Ox 99 06/02/21 07:04 BMI result Body Mass Index 20.9 General: AO X 3, no acute distress Resp:? CTA bilateral, no accessory muscles used CVS: S1,S2,RRR GI: soft, mildly tender, non distended Neuro:? motor grossly intact, alert Psych: appropriate affect, appropriate insight? Objective Data Active Medications Albuterol Sulfate (Albuterol Sulfate 90 Mcg 8 Gm Inhaler) 2 puff INHALE Q4H PRN PRN Reason: shortness of breath or wheezing Last Admin: 05/30/21 12:51 Dose: 2 puff Documented by: SONNY Dicyclomine HCl (Dicyclomine Hcl 10 Mg Capsule) 20 mg PO QID PRN PRN Reason: Abdominal Discomfort Last Admin: 05/30/21 11:01 Dose: 20 mg Documented by: MONIKA Diphenhydramine HCl (Diphenhydramine Hcl 50 Mg/Ml Vial) 25 mg IVPUSH Q4H PRN PRN Reason: pruritis Last Admin: 06/02/21 09:24 Dose: 25 mg Documented by: MONTRELL Enoxaparin Sodium (Enoxaparin Sodium 40 Mg/0.4 Ml Syringe) 40 mg SUBCUT Q24H [facility] Last Admin: 06/02/21 09:24 Dose: 40 mg Documented by: MONTRELL Hydromorphone HCl (Hydromorphone Hcl 1 Mg/Ml Syringe) 0.5 mg IVPUSH Q3H PRN; Protocol PRN Reason: moderate pain Last Admin: 06/02/21 09:33 Dose: 0.5 mg Documented by: MONTRELL Lactated Ringer's (Lr) 1,000 mls @ 125 mls/hr IVCONT .Q8H [facility] Last Admin: 06/02/21 08:00 Dose: 125 mls/hr Documented by: CHRISTOPHE Nicotine (Nicotine 14 Mg Patch.Td24) 14 mg TRANSDERMA DAILY [facility] Last Admin: 06/02/21 07:52 Dose: 14 mg Documented by: CHRISTOPHE Omeprazole (Omeprazole 20 Mg Capsule.Dr) 20 mg PO DAILY@0630 [facility] Last Admin: 06/02/21 05:29 Dose: 20 mg Documented by: ROSALINDA Ondansetron HCl (Ondansetron Hcl 4 Mg/2 Ml Vial) 4 mg IVPUSH Q6H PRN PRN Reason: nausea Last Admin: 06/01/21 20:59 Dose: 4 mg Documented by: ROSALINDA Pharmacy Consult (Consult Rx Perform Med Rec) 1 each MISCELLANE ONCE PRN PRN Reason: Consult order Pyridoxine HCl (Pyridoxine Hcl (Vitamin B6) 50 Mg Tablet) 100 mg PO DAILY [facility] Last Admin: 06/02/21 07:51 Dose: 100 mg Documented by: CHRISTOPHE Quetiapine Fumarate (Quetiapine Fumarate 25 Mg Tablet) 25 mg PO BID@1000,1500 [facility] Last Admin: 06/02/21 09:24 Dose: 25 mg Documented by: DABRolando Quetiapine Fumarate (Quetiapine Fumarate 300 Mg Tablet) 300 mg PO BEDTIME [facility] Last Admin: 06/01/21 20:57 Dose: 300 mg Documented by: ROSALINDA Sodium Chloride (0.9 % Sodium Chloride Flush 3 Ml Syringe) 3 ml IVFLUSH QSHIFT [facility] Last Admin: 06/02/21 07:52 Dose: Not Given Documented by: CHRISTOPHE Non-Admin Reason: IV running Vitamin D (Cholecalciferol (Vitamin D3) 25 Mcg Tablet) 50 mcg PO DAILY [facility] Last Admin: 06/02/21 07:51 Dose: 50 mcg Documented by: CHRISTOPHE Labs CBC & Chem 7: 06/02/21 04:21 06/02/21 04:21 Labs: Laboratory Results - last 24 hr 05/31/21 06/02/21 06/02/21 05:21 04:21 04:21 MCV 89.3 MCH 30.4 MCHC 34.1 RDW 15.4 Plt Count 295 MPV 10.3 Absolute Nucleated RBC 0.000 Nucleated RBC % (auto) 0.0 PT INR Anion Gap Estim Creat Clear Calc Estimated GFR Fasting Glucose Calcium Total Bilirubin Direct Bilirubin AST ALT Alkaline Phosphatase Total Protein Albumin Lipase 33 IgG Total 692 IgG Subclass 1 337 L IgG Subclass 2 248 IgG Subclass 3 32 IgG Subclass 4 28.6 06/02/21 06/02/21 04:21 09:53 MCV MCH MCHC RDW Plt Count MPV Absolute Nucleated RBC Nucleated RBC % (auto) PT 13.4 H INR 1.2 H Anion Gap 12 Estim Creat Clear Calc 89.8 Estimated GFR > 60 Fasting Glucose 99 Calcium 9.7 Total Bilirubin 2.9 H Direct Bilirubin 2.2 H AST 116 H ALT 195 H Alkaline Phosphatase 824 H Total Protein 5.9 L Albumin 3.4 L Lipase IgG Total IgG Subclass 1 IgG Subclass 2 IgG Subclass 3 IgG Subclass 4 Assessment and Plan (1) Pancreatitis: Status: Acute Assessment and Plan: ?51F presented with abdominal pain, found to have recurrent biliary obstruction acute recurrent pancreatitis acute pancreatitis etiology unclear, differential includes: pancreatic or biliary neoplasm, biliary inflammation plan to advance to solids today, but still with pruritis and pain and LFTS not improving, plan for NPO after midnight for ERCP continue ivf and pain meds monitor lfts GI following Quality Stroke Does the patient have a stroke diagnosis?: No VTE Prior VTE?: No VTE Risk Level:: Medical - moderate - high VTE Device Contraindication: Treatment Not Indicated VTE Drug Contraindication: N/A - Med Ordered
[2021-06-02] MEDS: ondansetron HCL 4 MG/2 ML VIAL IVPUSH (14:14)
[2021-06-02 14:56] VITALS: BP 134/76; PULSE 73; RESP 18; TEMP 36.7; O2SAT 97
--- NOTE | 2021-06-02 18:13 | MHC.SHP ---
Pre-Procedural Eval Section A Date of Service: 06/03/21 The patient is an INPATIENT: Yes The History & Physical has been completed within 30 days and I have reviewed it.: Yes Section B Chief Complaint: recurrent biliary obstruction Allergies: Allergies Allergy/AdvReac Type Severity Reaction Status Date / Time No Known Allergies Allergy Verified 04/29/21 11:50 [No Known Allergies*] Plan I have reviewed the history and physical and performed a pertinent physical examination on my patient. No changes have occurred unless specified.
--- NOTE | 2021-06-02 18:14 | PM.GIPN ---
Subjective Subjective Date of Service: 06/02/21 Interval History: She is feeling about the same. Still with upper abdominal discomfort and nausea. Denies vomiting. Appetite is down Critical Care Time (minutes): 0 Physical Exam Vital Signs: Vital Signs: Last Vital Signs Temp 98.0 F 06/02/21 14:56 Pulse 73 06/02/21 14:56 Resp 18 06/02/21 14:56 BP 134/76 06/02/21 14:56 Pulse Ox 97 06/02/21 14:56 BMI result Body Mass Index 20.9 Const: General: cooperative, comfortable, no acute distress, well developed, alert and Physically active Eyes: Sclerae: sclerae normal GI: Other: Soft, upper abdominal tenderness, nondistended, no mass Objective Data Labs CBC & Chem 7: 06/02/21 04:21 06/02/21 04:21 Labs: Laboratory Results - last 24 hr 05/31/21 06/02/21 06/02/21 05:21 04:21 04:21 WBC 5.3 RBC 4.11 L Hgb 12.5 Hct 36.7 L MCV 89.3 MCH 30.4 MCHC 34.1 RDW 15.4 Plt Count 295 MPV 10.3 Absolute Nucleated RBC 0.000 Nucleated RBC % (auto) 0.0 PT INR Sodium Potassium Chloride Carbon Dioxide Anion Gap BUN Creatinine Estim Creat Clear Calc Estimated GFR Fasting Glucose Calcium Total Bilirubin Direct Bilirubin AST ALT Alkaline Phosphatase Total Protein Albumin Lipase 33 IgG Total 692 IgG Subclass 1 337 L IgG Subclass 2 248 IgG Subclass 3 32 IgG Subclass 4 28.6 06/02/21 06/02/21 04:21 09:53 WBC RBC Hgb Hct MCV MCH MCHC RDW Plt Count MPV Absolute Nucleated RBC Nucleated RBC % (auto) PT 13.4 H INR 1.2 H Sodium 142 Potassium 4.0 Chloride 107 Carbon Dioxide 27 Anion Gap 12 BUN 5 L Creatinine 0.69 Estim Creat Clear Calc 89.8 Estimated GFR > 60 Fasting Glucose 99 Calcium 9.7 Total Bilirubin 2.9 H Direct Bilirubin 2.2 H AST 116 H ALT 195 H Alkaline Phosphatase 824 H Total Protein 5.9 L Albumin 3.4 L Lipase IgG Total IgG Subclass 1 IgG Subclass 2 IgG Subclass 3 IgG Subclass 4 Procedures Date of Service Date of Service: 06/02/21 Progress Note: A&P Assessment and plan (1) Pancreatitis: Status: Acute Assessment and Plan: Imp: Pancreatitis of unclear etiology with a component of biliary obstruction. Clinically stable but LFT's worsening with increased TBili. Her IgG levels are OK with a normal IgG4 level. Main concern at this point is a possible pancreatic neoplasm. Rec: Will proceed with ERCP given rising TBili. Will plan to obtain brushings of any biliary stricture for cytology and place a biliary stent for decompression as indicated by the ERCP findings. I have D/C'd the Lovenox for now. Check labs in AM and the pending CA 19-9 level. Dose of Levaquin has been ordered preop. I did review the ERCP with the patient in detail and advised her that this will be done by me or Dr. Jennings. Full consent has been obtained from her for this, including risks of bleeding, perforation, cholangitis, and pancreatitis. She may need an eventual outpatient EUS at [facility] for further evaluation as well. Thanks (2) Obstructive jaundice: Status: Acute Fall Risk Details Current Medications: Current Medications Albuterol Sulfate (Albuterol Sulfate 90 Mcg 8 Gm Inhaler) 2 puff INHALE Q4H PRN PRN Reason: shortness of breath or wheezing Last Admin: 05/30/21 12:51 Dose: 2 puff Documented by: Dicyclomine HCl (Dicyclomine Hcl 10 Mg Capsule) 20 mg PO QID PRN PRN Reason: Abdominal Discomfort Last Admin: 05/30/21 11:01 Dose: 20 mg Documented by: Diphenhydramine HCl (Diphenhydramine Hcl 50 Mg/Ml Vial) 25 mg IVPUSH Q4H PRN PRN Reason: pruritis Last Admin: 06/02/21 14:14 Dose: 25 mg Documented by: Hydromorphone HCl (Hydromorphone Hcl 1 Mg/Ml Syringe) 0.5 mg IVPUSH Q3H PRN; Protocol PRN Reason: moderate pain Last Admin: 06/02/21 14:14 Dose: 0.5 mg Documented by: Lactated Ringer's (Lr) 1,000 mls @ 125 mls/hr IVCONT .Q8H [facility] Last Admin: 06/02/21 14:46 Dose: 125 mls/hr Documented by: Levofloxacin (Levaquin) 500 mg in 100 mls @ 100 mls/hr IV PREOP ONE Stop: 06/03/21 15:14 Nicotine (Nicotine 14 Mg Patch.Td24) 14 mg TRANSDERMA DAILY [facility] Last Admin: 06/02/21 07:52 Dose: 14 mg Documented by: Omeprazole (Omeprazole 20 Mg Capsule.) 20 mg PO DAILY@0630 [facility] Last Admin: 06/02/21 05:29 Dose: 20 mg Documented by: Ondansetron HCl (Ondansetron Hcl 4 Mg/2 Ml Vial) 4 mg IVPUSH Q6H PRN PRN Reason: nausea Last Admin: 06/02/21 14:14 Dose: 4 mg Documented by: Pharmacy Consult (Consult Rx Perform Med Rec) 1 each MISCELLANE ONCE PRN PRN Reason: Consult order Pyridoxine HCl (Pyridoxine Hcl (Vitamin B6) 50 Mg Tablet) 100 mg PO DAILY [facility] Last Admin: 06/02/21 07:51 Dose: 100 mg Documented by: Quetiapine Fumarate (Quetiapine Fumarate 25 Mg Tablet) 25 mg PO BID@1000,1500 [facility] Last Admin: 06/02/21 14:14 Dose: 25 mg Documented by: Quetiapine Fumarate (Quetiapine Fumarate 300 Mg Tablet) 300 mg PO BEDTIME [facility] Last Admin: 06/01/21 20:57 Dose: 300 mg Documented by: Sodium Chloride (0.9 % Sodium Chloride Flush 3 Ml Syringe) 3 ml IVFLUSH QSHIFT [facility] Last Admin: 06/02/21 14:17 Dose: Not Given Documented by: Vitamin D (Cholecalciferol (Vitamin D3) 25 Mcg Tablet) 50 mcg PO DAILY [facility] Last Admin: 06/02/21 07:51 Dose: 50 mcg Documented by: Time Spent With Patient Time: Total time spent is greater than 50% in coordination of care (as documented) at patient's floor/unit and/or counseling patient: Time with patient: 15 - 24 minutes Quality Stroke Does the patient have a stroke diagnosis?: No VTE Prior VTE?: No VTE Risk Level:: Medical - moderate - high VTE Device Contraindication: Treatment Not Indicated VTE Drug Contraindication: N/A - Med Ordered
[2021-06-02] MEDS: QUEtiapine Fumarate 300 MG TABLET PO (20:16)
[2021-06-02] MEDS: 0.9 % Sodium Chloride Flush 3 ML SYRINGE IVFLUSH (20:17)
[2021-06-02 23:23] VITALS: BP 133/71; PULSE 79; RESP 14; TEMP 36.6; O2SAT 95
[2021-06-03] VITALS (7 sets, daily range): BP systolic 126–161; BP diastolic 69–84; PULSE 62–81; RESP 16–18; TEMP 36.2–36.7; O2SAT 96–100
[2021-06-03] MEDS: Lactated Ringers 1,000 ML 125 ML IVCONT (05:47)
[2021-06-03 06:46] LABS: Hematocrit 36.2 % (37.0-47.0); Hemoglobin 12.5 g/dl (12.0-16.0); Mean Corpuscular HGB Conc 34.5 g/dl (31.0-35.0); Mean Corpuscular Hemoglobin 30.8 pg (27.0-33.0); Mean Corpuscular Volume 89.2 fL (80.0-98.0); Mean Platelet Volume 10.3 fL (9.4-12.3); Platelet Count 269 X10*3/uL (160-400); Red Blood Count 4.06 X10*6/uL (4.20-5.50); Red Cell Distribution Width 15.4 % (11.0-16.0); White Blood Count 6.2 X10*3/uL (4.8-10.8)
[2021-06-03 07:16] LABS: Alanine Aminotransferase 234 U/L (0-31); Albumin Level 3.2 g/dL (3.5-5.0); Alkaline Phosphatase 735 U/L (39-117); Anion Gap 11 (12-20); Aspartate Amino Transferase 162 U/L (5-31); Bilirubin Total 3.9 mg/dL (0.0-1.0); Blood Urea Nitrogen 5 mg/dL (9-16); Calcium 9.6 mg/dL (8.4-10.2); Carbon Dioxide 28 mmol/L (22-29); Chloride 105 mmol/L (96-108); Estimated Glomerular Filt Rate > 60; Glucose Fasting 126 mg/dL (60-99); Potassium 3.9 mmol/L (3.3-5.1); Sodium 140 mmol/L (135-145); Total Protein 5.7 g/dL (6.5-8.0)
[2021-06-03] MEDS: Nicotine 14 MG PATCH.TD24 TRANSDERMA (07:50)
[2021-06-03] MEDS: Pyridoxine HCl (Vitamin B6) 50 MG TABLET 100 MG PO (07:51)
[2021-06-03] MEDS: Cholecalciferol (Vitamin D3) 25 MCG TABLET 50 MCG PO (07:51)
[2021-06-03] MEDS: QUEtiapine Fumarate 25 MG TABLET PO (07:51)
[2021-06-03] MEDS: HYDROmorphone HCl 1 MG/ML SYRINGE 0.5 MG IVPUSH ×4 (07:51→20:23)
[2021-06-03] MEDS: 0.9 % Sodium Chloride Flush 3 ML SYRINGE IVFLUSH (07:57)
--- NOTE | 2021-06-03 10:40 | HO.PM.IMPN ---
Subjective Subjective Date of Service: 06/03/21 Interval History: Seen and evaluated this morning Abdominal pain significantly improved Still having some prurutis Plan to do ERCP this morning Review of Systems Constitutional: Denies fever, denies Chills, + pruritis Eyes: denies blurry vision ENT: denies sore throat CVS: denies chest pain Respiratory: Denies dyspnea GI: abdominal pain : denies dysuria MSK: denies neck pain Skin: denies rash Neuro: denies specific motor weakness Allergy: denies hives Physical Exam Vital Signs: Vital Signs: Last Vital Signs Temp 97.6 F 06/03/21 08:00 Pulse 78 06/03/21 08:00 Resp 16 06/03/21 08:00 BP 126/71 06/03/21 08:00 Pulse Ox 96 06/03/21 08:00 BMI result Body Mass Index 20.9 Const: Other: Constitutional : Alert, oriented, not in distress Neck : Normal inspection, Supple Cardiovascular : RRR, S1 S2, no lower extremity edema Respiratory : Good bilateral air entry, no crackles, wheezes or rhonchi Gastrointestinal: soft, lax, Normal bowel sounds, no tenderness or surgical signs Skin : Warm, Dry Neurological : Alert & oriented x3, No focal deficit Objective Data Active Medications Albuterol Sulfate (Albuterol Sulfate 90 Mcg 8 Gm Inhaler) 2 puff INHALE Q4H PRN PRN Reason: shortness of breath or wheezing Last Admin: 05/30/21 12:51 Dose: 2 puff Documented by: SONNY Dicyclomine HCl (Dicyclomine Hcl 10 Mg Capsule) 20 mg PO QID PRN PRN Reason: Abdominal Discomfort Last Admin: 05/30/21 11:01 Dose: 20 mg Documented by: MONIKA Diphenhydramine HCl (Diphenhydramine Hcl 50 Mg/Ml Vial) 25 mg IVPUSH Q4H PRN PRN Reason: pruritis Last Admin: 06/02/21 20:16 Dose: 25 mg Documented by: ELSI Hydromorphone HCl (Hydromorphone Hcl 1 Mg/Ml Syringe) 0.5 mg IVPUSH Q3H PRN; Protocol PRN Reason: moderate pain Last Admin: 06/03/21 07:51 Dose: 0.5 mg Documented by: MONTRELL Lactated Ringer's (Lr) 1,000 mls @ 125 mls/hr IVCONT .Q8H [facility] Last Admin: 06/03/21 05:47 Dose: 125 mls/hr Documented by: ELSI Levofloxacin (Levaquin) 500 mg in 100 mls @ 100 mls/hr IV PREOP ONE Stop: 06/03/21 15:14 Nicotine (Nicotine 14 Mg Patch.Td24) 14 mg TRANSDERMA DAILY [facility] Last Admin: 06/03/21 07:50 Dose: 14 mg Documented by: MONTRELL Omeprazole (Omeprazole 20 Mg Capsule.Dr) 20 mg PO DAILY@0630 [facility] Last Admin: 06/03/21 05:47 Dose: Not Given Documented by: ELSI Non-Admin Reason: Patient Refused Ondansetron HCl (Ondansetron Hcl 4 Mg/2 Ml Vial) 4 mg IVPUSH Q6H PRN PRN Reason: nausea Last Admin: 06/02/21 14:14 Dose: 4 mg Documented by: MONTRELL Pharmacy Consult (Consult Rx Perform Med Rec) 1 each MISCELLANE ONCE PRN PRN Reason: Consult order Polyethylene Glycol (Polyethylene Glycol 3350 17 Gm Powd.Pack) 17 gm PO DAILY PRN PRN Reason: Constipation Pyridoxine HCl (Pyridoxine Hcl (Vitamin B6) 50 Mg Tablet) 100 mg PO DAILY [facility] Last Admin: 06/03/21 07:51 Dose: 100 mg Documented by: MONTRELL Quetiapine Fumarate (Quetiapine Fumarate 25 Mg Tablet) 25 mg PO BID@1000,1500 [facility] Last Admin: 06/03/21 07:51 Dose: 25 mg Documented by: MONTRELL Quetiapine Fumarate (Quetiapine Fumarate 300 Mg Tablet) 300 mg PO BEDTIME [facility] Last Admin: 06/02/21 20:16 Dose: 300 mg Documented by: ELSI Sodium Chloride (0.9 % Sodium Chloride Flush 3 Ml Syringe) 3 ml IVFLUSH QSHIFT [facility] Last Admin: 06/03/21 07:57 Dose: 3 ml Documented by: MONTRELL Vitamin D (Cholecalciferol (Vitamin D3) 25 Mcg Tablet) 50 mcg PO DAILY [facility] Last Admin: 06/03/21 07:51 Dose: 50 mcg Documented by: MONTRELL Labs CBC & Chem 7: 06/03/21 06:26 06/03/21 06:26 Labs: Laboratory Results - last 24 hr 06/03/21 06/03/21 06:26 06:26 MCV 89.2 MCH 30.8 MCHC 34.5 RDW 15.4 Plt Count 269 MPV 10.3 Absolute Nucleated RBC 0.000 Nucleated RBC % (auto) 0.0 Anion Gap 11 L Estim Creat Clear Calc 86.0 Estimated GFR > 60 Fasting Glucose 126 H Calcium 9.6 Total Bilirubin 3.9 H Direct Bilirubin 3.0 H AST 162 H ALT 234 H Alkaline Phosphatase 735 H Total Protein 5.7 L Albumin 3.2 L Assessment and Plan (1) Obstructive jaundice: Status: Acute (2) Pancreatitis: Status: Acute Assessment and Plan: ?51F presented with abdominal pain, found to have recurrent biliary obstruction acute recurrent pancreatitis acute pancreatitis etiology unclear, differential includes: pancreatic or biliary neoplasm, biliary inflammation plan to advance to solids today, but still with pruritis and pain and LFTS not improving, plan for NPO after midnight for ERCP continue ivf and pain meds monitor lfts GI following Obstructive jaundice , transaminitis Bilirubin increasing to 3.9 this morning Liver enzymes increasing as well Plan to do ERCP today to look for obstruction Quality Stroke Does the patient have a stroke diagnosis?: No VTE Prior VTE?: No VTE Risk Level:: Medical - moderate - high VTE Device Contraindication: Treatment Not Indicated VTE Drug Contraindication: N/A - Med Ordered
[2021-06-03] MEDS: diphenhydrAMINE HCL 50 MG/ML VIAL 25 MG IVPUSH (11:44)
--- NOTE | 2021-06-03 14:39 | HO.ANESPROP2 ---
HPI - Anesthesia Eval Consult details Narrative: 51 F for ERCP Asthma , GERD , Acute pancreatitis PMFSH Active Problems Active Problems: All Active Problems (Updated 06/02/21 @ 18:18 by Miah Kendrick) Obstructive jaundice (Acute) Pancreatitis (Acute) Hepatitis (Acute) Kidney stones (Acute) Diarrhea (Acute) Acute pancreatitis (Acute) Smoker (Acute) Dyslipidemia (Acute) Cervical radiculopathy (Acute) Past Medical History Medical History Encounter for screening colonoscopy Kidney stones Microscopic hematuria Right thyroid nodule Screening for colon cancer Family History Family History Father Pancreatic cancer Mother Pancreatic cancer Family history of problems with anesthesia: No Surgical History History of Problems with Anesthesia: No Social History Social History Household Members: Other Housing: House Alcohol intake: never Patient Tobacco Use Status: Current everyday Tobacco user Tobacco use type: Cigarette Cigarettes Per Day: 2 Second Hand Smoke Exposure: No Substance Use Type: Marijuana Advance Directives Date on File: 01/24/21 service: No Current occupational status: unemployed 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 Meds Allergies Allergy/AdvReac Type Severity Reaction Status Date / Time No Known Allergies Allergy Verified 04/29/21 11:50 [No Known Allergies*] Active Medications: Current Medications Albuterol Sulfate (Albuterol Sulfate 90 Mcg 8 Gm Inhaler) 2 puff INHALE Q4H PRN PRN Reason: shortness of breath or wheezing Last Admin: 05/30/21 12:51 Dose: 2 puff Documented by: Dicyclomine HCl (Dicyclomine Hcl 10 Mg Capsule) 20 mg PO QID PRN PRN Reason: Abdominal Discomfort Last Admin: 05/30/21 11:01 Dose: 20 mg Documented by: Diphenhydramine HCl (Diphenhydramine Hcl 50 Mg/Ml Vial) 25 mg IVPUSH Q4H PRN PRN Reason: pruritis Last Admin: 06/03/21 11:44 Dose: 25 mg Documented by: Hydromorphone HCl (Hydromorphone Hcl 1 Mg/Ml Syringe) 0.5 mg IVPUSH Q3H PRN; Protocol PRN Reason: moderate pain Last Admin: 06/03/21 11:44 Dose: 0.5 mg Documented by: Lactated Ringer's (Lr) 1,000 mls @ 125 mls/hr IVCONT .Q8H [facility] Last Infusion: 06/03/21 13:52 Dose: Infused Documented by: Levofloxacin (Levaquin) 500 mg in 100 mls @ 100 mls/hr IV PREOP ONE Stop: 06/03/21 15:14 Nicotine (Nicotine 14 Mg Patch.Td24) 14 mg TRANSDERMA DAILY [facility] Last Admin: 06/03/21 07:50 Dose: 14 mg Documented by: Omeprazole (Omeprazole 20 Mg Capsule.Dr) 20 mg PO DAILY@0630 [facility] Last Admin: 06/03/21 05:47 Dose: Not Given Documented by: Ondansetron HCl (Ondansetron Hcl 4 Mg/2 Ml Vial) 4 mg IVPUSH Q6H PRN PRN Reason: nausea Last Admin: 06/02/21 14:14 Dose: 4 mg Documented by: Pharmacy Consult (Consult Rx Perform Med Rec) 1 each MISCELLANE ONCE PRN PRN Reason: Consult order Polyethylene Glycol (Polyethylene Glycol 3350 17 Gm Powd.Pack) 17 gm PO DAILY PRN PRN Reason: Constipation Pyridoxine HCl (Pyridoxine Hcl (Vitamin B6) 50 Mg Tablet) 100 mg PO DAILY [facility] Last Admin: 06/03/21 07:51 Dose: 100 mg Documented by: Quetiapine Fumarate (Quetiapine Fumarate 25 Mg Tablet) 25 mg PO BID@1000,1500 [facility] Last Admin: 06/03/21 07:51 Dose: 25 mg Documented by: Quetiapine Fumarate (Quetiapine Fumarate 300 Mg Tablet) 300 mg PO BEDTIME [facility] Last Admin: 06/02/21 20:16 Dose: 300 mg Documented by: Sodium Chloride (0.9 % Sodium Chloride Flush 3 Ml Syringe) 3 ml IVFLUSH QSHIFT [facility] Last Admin: 06/03/21 07:57 Dose: 3 ml Documented by: Vitamin D (Cholecalciferol (Vitamin D3) 25 Mcg Tablet) 50 mcg PO DAILY [facility] Last Admin: 06/03/21 07:51 Dose: 50 mcg Documented by: Home Medications Medication Instructions Recorded Confirmed Last Taken Type dicyclomine 10 mg capsule 2 cap PO QID PRN 05/30/21 05/30/21 05/27/21 History omeprazole 20 mg capsule,delayed 20 mg PO DAILY@0630 05/30/21 05/30/21 05/27/21 History release ondansetron HCl 4 mg tablet 4 tab PO Q6H PRN 05/30/21 05/30/21 05/27/21 History quetiapine 25 mg tablet 25 mg PO BID@1000,1500 05/30/21 05/30/21 05/27/21 History Exam Exam Date and Time: June 03, 2021 1439 Height,Weight and Vital Signs: Height 5 ft 6 in Weight 58.967 kg Last Vital Signs Temp 98.0 F 06/03/21 14:27 Pulse 73 06/03/21 14:27 Resp 16 06/03/21 14:27 BP 126/69 06/03/21 14:27 Pulse Ox 98 06/03/21 14:27 Pertinent Lab Results Pertinent Lab Results: Laboratory Tests 05/29/21 05/29/21 05/29/21 22:04 22:04 22:11 WBC 7.4 RBC 4.43 Hgb 13.5 Hct 40.0 MCV 90.3 MCH 30.5 MCHC 33.8 RDW 15.2 Plt Count 280 MPV 10.4 Immature Gran % (Auto) 0.3 Neut % (Auto) 61.4 Lymph % (Auto) 25.4 [place] % (Auto) 9.6 Eos % (Auto) 2.9 Baso % (Auto) 0.4 Lymph # (Auto) 1.9 [place] # (Auto) 0.7 Eos # (Auto) 0.2 Baso # (Auto) 0.0 Abs Immat Gran (auto) 0.02 Absolute Neuts (auto) 4.5 Absolute Nucleated RBC 0.000 Nucleated RBC % (auto) 0.0 PT INR Sodium 141 Potassium 3.8 Chloride 104 Carbon Dioxide 31 H Anion Gap 10 L BUN 6 L Creatinine 0.76 Estim Creat Clear Calc 81.5 Estimated GFR > 60 Random Glucose 110 Fasting Glucose Calcium 9.6 Total Bilirubin 2.7 H Direct Bilirubin 2.3 H GGT 1059 H AST 105 H ALT 233 H Alkaline Phosphatase 815 H D Total Protein 6.7 Albumin 4.0 Lipase 93 H Urine Color DK YELLOW Urine Appearance HAZY Urine pH 7.5 Ur Specific [place] 1.015 Urine Protein NEG Urine Glucose (UA) NEG Urine Ketones NEG Urine Blood 2+ H Urine Nitrite NEG Ur Leukocyte Esterase NEG Urine RBC 1-4 Urine WBC 0 Ur Squamous Epith Cells 1+ Amorphous Sediment 2+ Urine Bacteria 1+ Urine Mucus 1+ IgG Total IgG Subclass 1 IgG Subclass 2 IgG Subclass 3 IgG Subclass 4 COVID-19 (BHARAT) COVID-19 Clin Com 05/30/21 05/31/21 05/31/21 07:17 05:21 05:21 WBC 4.7 L RBC 4.05 L Hgb 12.3 Hct 36.5 L MCV 90.1 MCH 30.4 MCHC 33.7 RDW 15.3 Plt Count 246 MPV 10.5 Immature Gran % (Auto) Neut % (Auto) Lymph % (Auto) [place] % (Auto) Eos % (Auto) Baso % (Auto) Lymph # (Auto) [place] # (Auto) Eos # (Auto) Baso # (Auto) Abs Immat Gran (auto) Absolute Neuts (auto) Absolute Nucleated RBC 0.000 Nucleated RBC % (auto) 0.0 PT INR Sodium 141 Potassium 4.0 Chloride 107 Carbon Dioxide 27 Anion Gap 11 L BUN 4 L Creatinine 0.66 Estim Creat Clear Calc 93.8 Estimated GFR > 60 Random Glucose Fasting Glucose 96 Calcium 9.5 Total Bilirubin 2.1 H Direct Bilirubin 1.6 H GGT AST 88 H ALT 184 H Alkaline Phosphatase 811 H Total Protein 5.9 L Albumin 3.5 Lipase Urine Color Urine Appearance Urine pH Ur Specific [place] Urine Protein Urine Glucose (UA) Urine Ketones Urine Blood Urine Nitrite Ur Leukocyte Esterase Urine RBC Urine WBC Ur Squamous Epith Cells Amorphous Sediment Urine Bacteria Urine Mucus IgG Total IgG Subclass 1 IgG Subclass 2 IgG Subclass 3 IgG Subclass 4 COVID-19 (BHARAT) Negative COVID-19 Clin Com See Note 05/31/21 06/01/21 06/01/21 05:21 06:56 06:56 WBC 5.2 RBC 3.96 L Hgb 12.2 Hct 35.8 L MCV 90.4 MCH 30.8 MCHC 34.1 RDW 15.6 Plt Count 266 MPV 10.6 Immature Gran % (Auto) Neut % (Auto) Lymph % (Auto) [place] % (Auto) Eos % (Auto) Baso % (Auto) Lymph # (Auto) [place] # (Auto) Eos # (Auto) Baso # (Auto) Abs Immat Gran (auto) Absolute Neuts (auto) Absolute Nucleated RBC 0.000 Nucleated RBC % (auto) 0.0 PT INR Sodium 140 Potassium 3.9 Chloride 107 Carbon Dioxide 26 Anion Gap 11 L BUN 5 L Creatinine 0.66 Estim Creat Clear Calc 93.8 Estimated GFR > 60 Random Glucose Fasting Glucose 87 Calcium 9.6 Total Bilirubin 2.1 H Direct Bilirubin 1.7 H GGT AST 93 H ALT 184 H Alkaline Phosphatase 805 H Total Protein 5.8 L Albumin 3.4 L Lipase Urine Color Urine Appearance Urine pH Ur Specific [place] Urine Protein Urine Glucose (UA) Urine Ketones Urine Blood Urine Nitrite Ur Leukocyte Esterase Urine RBC Urine WBC Ur Squamous Epith Cells Amorphous Sediment Urine Bacteria Urine Mucus IgG Total 692 IgG Subclass 1 337 L IgG Subclass 2 248 IgG Subclass 3 32 IgG Subclass 4 28.6 COVID-19 (BHARAT) COVID-19 [place] 06/01/21 06/02/21 06/02/21 06:57 04:21 04:21 WBC 5.3 RBC 4.11 L Hgb 12.5 Hct 36.7 L MCV 89.3 MCH 30.4 MCHC 34.1 RDW 15.4 Plt Count 295 MPV 10.3 Immature Gran % (Auto) Neut % (Auto) Lymph % (Auto) [place] % (Auto) Eos % (Auto) Baso % (Auto) Lymph # (Auto) [place] # (Auto) Eos # (Auto) Baso # (Auto) Abs Immat Gran (auto) Absolute Neuts (auto) Absolute Nucleated RBC 0.000 Nucleated RBC % (auto) 0.0 PT INR Sodium Potassium Chloride Carbon Dioxide Anion Gap BUN Creatinine Estim Creat Clear Calc Estimated GFR Random Glucose Fasting Glucose Calcium Total Bilirubin Direct Bilirubin GGT AST ALT Alkaline Phosphatase Total Protein Albumin Lipase 24 33 Urine Color Urine Appearance Urine pH Ur Specific [place] Urine Protein Urine Glucose (UA) Urine Ketones Urine Blood Urine Nitrite Ur Leukocyte Esterase Urine RBC Urine WBC Ur Squamous Epith Cells Amorphous Sediment Urine Bacteria Urine Mucus IgG Total IgG Subclass 1 IgG Subclass 2 IgG Subclass 3 IgG Subclass 4 COVID-19 (BHARAT) COVID-19 Clin Com 06/02/21 06/02/21 06/03/21 04:21 09:53 06:26 WBC 6.2 RBC 4.06 L Hgb 12.5 Hct 36.2 L MCV 89.2 MCH 30.8 MCHC 34.5 RDW 15.4 Plt Count 269 MPV 10.3 Immature Gran % (Auto) Neut % (Auto) Lymph % (Auto) [place] % (Auto) Eos % (Auto) Baso % (Auto) Lymph # (Auto) [place] # (Auto) Eos # (Auto) Baso # (Auto) Abs Immat Gran (auto) Absolute Neuts (auto) Absolute Nucleated RBC 0.000 Nucleated RBC % (auto) 0.0 PT 13.4 H INR 1.2 H Sodium 142 Potassium 4.0 Chloride 107 Carbon Dioxide 27 Anion Gap 12 BUN 5 L Creatinine 0.69 Estim Creat Clear Calc 89.8 Estimated GFR > 60 Random Glucose Fasting Glucose 99 Calcium 9.7 Total Bilirubin 2.9 H Direct Bilirubin 2.2 H GGT AST 116 H ALT 195 H Alkaline Phosphatase 824 H Total Protein 5.9 L Albumin 3.4 L Lipase Urine Color Urine Appearance Urine pH Ur Specific [place] Urine Protein Urine Glucose (UA) Urine Ketones Urine Blood Urine Nitrite Ur Leukocyte Esterase Urine RBC Urine WBC Ur Squamous Epith Cells Amorphous Sediment Urine Bacteria Urine Mucus IgG Total IgG Subclass 1 IgG Subclass 2 IgG Subclass 3 IgG Subclass 4 COVID-19 (BHARAT) COVID-19 Clin Com 06/03/21 06:26 WBC RBC Hgb Hct MCV MCH MCHC RDW Plt Count MPV Immature Gran % (Auto) Neut % (Auto) Lymph % (Auto) [place] % (Auto) Eos % (Auto) Baso % (Auto) Lymph # (Auto) [place] # (Auto) Eos # (Auto) Baso # (Auto) Abs Immat Gran (auto) Absolute Neuts (auto) Absolute Nucleated RBC Nucleated RBC % (auto) PT INR Sodium 140 Potassium 3.9 Chloride 105 Carbon Dioxide 28 Anion Gap 11 L BUN 5 L Creatinine 0.72 Estim Creat Clear Calc 86.0 Estimated GFR > 60 Random Glucose Fasting Glucose 126 H Calcium 9.6 Total Bilirubin 3.9 H Direct Bilirubin 3.0 H GGT AST 162 H ALT 234 H Alkaline Phosphatase 735 H Total Protein 5.7 L Albumin 3.2 L Lipase Urine Color Urine Appearance Urine pH Ur Specific [place] Urine Protein Urine Glucose (UA) Urine Ketones Urine Blood Urine Nitrite Ur Leukocyte Esterase Urine RBC Urine WBC Ur Squamous Epith Cells Amorphous Sediment Urine Bacteria Urine Mucus IgG Total IgG Subclass 1 IgG Subclass 2 IgG Subclass 3 IgG Subclass 4 COVID-19 (BHARAT) COVID-19 Clin Com Airway Mallampati Class: I TM Dist: >3cm Neck ROM: Full Denture: Upper and Lower Loose/Missing/Broken Teeth: Yes Heart: rrr Lungs: bl breath sounds Assessment and Plan Final Anesthetic Review Family History of Problems with Anesthesia: No History of Problems with Anesthesia: No NPO: Yes ASA Class: III Patient Risk: High Procedure Risk: Intermediate Anesthetic Plan Anesthetic Plan: GA Disposition: Inp. Admit - Standard Bed
--- NOTE | 2021-06-03 16:04 | PM.EVENT ---
Event Note Date of Service: 06/03/21 Event Note: ERCP note dictated 1.5 cm biliary stricture at level of pancreatic head. sphincterotomy and cytology brushings done. 10F 7cm straight biliary stent placed with good drainage of clear yellow bile. rec start clears, advance as tolerated check cytology results, may need EUS as outpatient. f/u lft's
--- NOTE | 2021-06-03 16:07 | PM.OP ---
Brief Operative Note Date of Service: 06/03/21 Pre-op diagnosis: biliary obstruction Post-op diagnosis: same (biliary stricture) Procedure: ERCP Surgeon: Jericho Jennings Anesthesia: GETA Was an Sales And Merchandising Representative used for this Procedure?: No Estimated blood loss (mL): 0 Pathology: other (biliary stricture brushings) Condition: stable Disposition: PACU
[2021-06-03] MEDS: ondansetron HCL 4 MG/2 ML VIAL IVPUSH (16:51)
[2021-06-03] MEDS: QUEtiapine Fumarate 300 MG TABLET PO (20:23)
--- NOTE | 2021-06-03 23:04 | OP_ITS ---
SURGEON: Jericho Jennings MD INDICATIONS: Biliary obstruction and abnormal MRI of the pancreas. PROCEDURE PERFORMED: ERCP with sphincterotomy, stent placement, and cytology brushings. ANESTHESIA: General endotracheal anesthesia. DESCRIPTION OF PROCEDURE: History and physical performed. The risks and benefits of the procedure were explained to the patient. Informed consent was obtained. The patient was placed in the prone position with a wedge under the right shoulder. The Olympus therapeutic duodenoscope was introduced into the esophagus, stomach, and duodenum. Examination was performed. The scope was removed. She tolerated the procedure well and was sent to the recovery room in stable condition. FINDINGS: Endoscopy: Limited examination of the esophagus, stomach, and duodenum was within normal limits. The major papilla was located as expected in the second portion with a small periampullary diverticulum. There was some yellow bile with some purulence exiting the major papilla. The guidewire was passed into the common bile duct. There was sphincterotome, and cholangiogram was obtained. This showed a 1.5 cm very distal stricture in the common bile duct in the area of the head of the pancreas. The common bile duct was dilated to about 12 mm above the stricture. Next, an 8 mm sphincterotomy was performed with no immediate complications, and cytology brushings were subsequently obtained from the stricture. Following this, a 10-Tamazight, 7 cm straight biliary stent was placed in good position with excellent drainage of clear yellow bile. No pancreatogram was attempted or obtained, although the guidewire did appear to enter the pancreatic duct on initial cannulation attempts. IMPRESSION: Biliary stricture. RECOMMENDATION: 1. Begin clear liquid diet, advance as tolerated. 2. Follow up the cytology results. 3. If cytology results are nondiagnostic, she will need endoscopic ultrasound for further evaluation. This can be arranged as an outpatient. MD CEDRICK Olson/JANE / [id number] MTDD
[2021-06-04] VITALS: BP 100/55; PULSE 64; RESP 17; TEMP 36.3; O2SAT 95
[2021-06-04] MEDS: HYDROmorphone HCl 1 MG/ML SYRINGE 0.5 MG IVPUSH ×3 (01:14→10:02)
[2021-06-04] MEDS: Lactated Ringers 1,000 ML 125 ML IVCONT (03:24)
[2021-06-04] MEDS: Omeprazole 20 MG CAPSULE.DR PO (06:10)
[2021-06-04] MEDS: diphenhydrAMINE HCL 50 MG/ML VIAL 25 MG IVPUSH (06:14)
[2021-06-04 06:17] LABS: Hematocrit 34.7 % (37.0-47.0); Hemoglobin 11.8 g/dl (12.0-16.0); Mean Corpuscular Hemoglobin 29.9 pg (27.0-33.0); Mean Corpuscular Volume 88.1 fL (80.0-98.0); Mean Platelet Volume 10.2 fL (9.4-12.3); Platelet Count 298 X10*3/uL (160-400); Red Blood Count 3.94 X10*6/uL (4.20-5.50); White Blood Count 6.5 X10*3/uL (4.8-10.8)
[2021-06-04 06:49] LABS: Anion Gap 10 (12-20); Blood Urea Nitrogen 6 mg/dL (9-16); Calcium 9.7 mg/dL (8.4-10.2); Carbon Dioxide 26 mmol/L (22-29); Chloride 108 mmol/L (96-108); Estimated Glomerular Filt Rate > 60; Glucose Random 154 mg/dL (60-115); Sodium 140 mmol/L (135-145)
[2021-06-04 06:51] LABS: Alanine Aminotransferase 244 U/L (0-31); Albumin Level 3.3 g/dL (3.5-5.0); Alkaline Phosphatase 685 U/L (39-117); Aspartate Amino Transferase 150 U/L (5-31); Bilirubin Direct 2.3 mg/dL (0.0-0.5); Total Protein 5.8 g/dL (6.5-8.0)
[2021-06-04 08:00] VITALS: BP 119/68; PULSE 69; RESP 16; TEMP 36.7; O2SAT 100
[2021-06-04] MEDS: Pyridoxine HCl (Vitamin B6) 50 MG TABLET 100 MG PO (08:12)
[2021-06-04] MEDS: Cholecalciferol (Vitamin D3) 25 MCG TABLET 50 MCG PO (08:12)
[2021-06-04] MEDS: QUEtiapine Fumarate 25 MG TABLET PO (08:12)
[2021-06-04] MEDS: Nicotine 14 MG PATCH.TD24 TRANSDERMA (08:12)
--- NOTE | 2021-06-04 10:02 | MHC.CM.PN ---
PATIENT IS DISCHARGED HOME WITH NO SERVICES SHE CAN ARRANGE FOR TRANSPORT. RN AWARE OF THE PLAN.
--- NOTE | 2021-06-04 10:12 | PM.DS ---
DS: Providers Provider Date of Service: 06/04/21 Date of admission: 05/30/21 09:06 Primary care physician: HARLEEN Shannon Consults: 05/30/21 09:04 Consult to Gastroenterology Routine Consulting Provider: Jericho Jennings Reason for consultation: reccurent biliary obstruction, pancreatitis DS: Diagnosis Discharge Diagnosis (1) Obstructive jaundice: Status: Acute (2) Pancreatitis: Status: Acute (3) Hepatitis: Status: Acute (4) Pancreatic duct stricture: Status: Acute DS: Summary Hospital Course Hospital Course: Admission note HPI 51-year-old female with past medical history of recurrent biliary obstruction of unknown etiology, workup still in progress, presented with 1 day of recurrent symptoms of right upper quadrant abdominal pain radiating to epigastrium, nausea vomiting.? Pain is 10/10.? She has had several episodes since her last admission in January 2021.? However, another episodes they were not as severe and patient did not come to the hospital as she was trying to avoid COVID exposure.? This time the pain was too intense and she came to the ED.? In ED labs consistent with biliary obstruction with direct bilirubin of 2.3, alk-phos of 815, GGT of 1059, lipase 93.? CT scan showed intrahepatic biliary duct dilatation as well as dilatation of the common hepatic duct to 1.3 cm abruptly narrowing at the confluence with the dilated cystic duct, prominence of the pancreatic head and ill-defined surrounding peripancreatic fat planes, possible pancreatitis.? Differential includes CBD inflammation, biliary neoplasm, pancreatic neoplasm, pancreatitis. Hospital course The patient was treated for acute recurrent pancreatitis with unclear etiology at time of presentation as MRCPimages were consistent with head of pancreas process concerning for possible neoplastic process. Patient evaluated by Dr. Jennings from Gastroenterology who did an ERCP fighting 1.5 cm stricture close to the head of the pancreas. A stent was placed with significant improvement in transaminitis and pain. Patient was able to tolerate diet well with no reported abdominal pain. Bilirubin decreased to 3 at the day of discharge with improvement in the transaminitis. She will follow up with Dr. Jennings in the office for the brush biopsy result and for possible outpatient EUS for further evaluation of head of pancreas. To repeat LFT as outpatient Time Spent with Patient Time attestation: Total time spent providing and/or coordinating discharge services: Discharge coordination time: Greater than 30 minutes Quality: Stroke Does the patient have a stroke diagnosis?: No Physical Exam Vital Signs: Vital Signs: Last Vital Signs Temp 98.1 F 06/04/21 08:00 Pulse 69 06/04/21 08:00 Resp 16 06/04/21 08:00 BP 119/68 06/04/21 08:00 Pulse Ox 100 06/04/21 08:00 BMI result Body Mass Index 20.9 Const: Other: Constitutional : Alert, oriented, not in distress Neck : Normal inspection, Supple Cardiovascular : RRR, S1 S2, no lower extremity edema Respiratory : Good bilateral air entry, no crackles, wheezes or rhonchi Gastrointestinal: soft, lax, Normal bowel sounds, no tenderness or surgical signs Skin : Warm, Dry Neurological : Alert & oriented x3, No focal deficit DS: Data Data Completed and Pending Pending studies at discharge: Pending at discharge 06/03/21 15:40 Cytology [PTH] Routine Labs on day of discharge: Laboratory Results - last 24 hr 06/04/21 06/04/21 06/04/21 06:01 06:01 06:01 WBC 6.5 RBC 3.94 L Hgb 11.8 L Hct 34.7 L MCV 88.1 MCH 29.9 MCHC 34.0 RDW 15.0 Plt Count 298 MPV 10.2 Absolute Nucleated RBC 0.000 Nucleated RBC % (auto) 0.0 Sodium 140 Potassium 4.0 Chloride 108 Carbon Dioxide 26 Anion Gap 10 L BUN 6 L Creatinine 0.68 Estim Creat Clear Calc 91.0 Estimated GFR > 60 Random Glucose 154 H Calcium 9.7 Total Bilirubin 3.0 H Direct Bilirubin 2.3 H AST 150 H ALT 244 H Alkaline Phosphatase 685 H Total Protein 5.8 L Albumin 3.3 L Discharge Plan Discharge Patient Disposition: Home, Self-Care Discharge Diagnosis: Pancreatic duct stricture Obstructive jaundice, hepatitis, pancreatitis Referrals: Tony Delong FNP-BC [Primary Care Provider] - 1 Week (Your doctor's office should call you to schedule a follow up appointment.) Discharge Medications: New oxycodone 5 mg tablet 2.5 mg PO Q6H PRN (Reason: pain (scale score 7-10)) Qty: 10 RF: 0 Continued cholecalciferol (vitamin D3) 50 mcg (2,000 unit) tablet 50 mcg PO DAILY 90 Days Qty: 90 RF: 2 albuterol sulfate 90 mcg/actuation HFA aerosol inhaler 2 puff PO Q4H PRN (Reason: shortness of breath or wheezing) Qty: 8.5 RF: 8 quetiapine [Seroquel] 300 mg tablet 300 mg PO BEDTIME 90 Days Qty: 90 RF: 1 nicotine 14 mg/24 hr patch 24 hour 1 patch transdermal DAILY 28 Days Qty: 28 RF: 0 atorvastatin 20 mg tablet 20 mg PO BEDTIME 90 Days Qty: 90 RF: 0 omeprazole 20 mg capsule,delayed release(DR/EC) 20 mg PO DAILY@0630 90 Days Qty: 90 RF: 0 ondansetron HCl 4 mg tablet 4 tab PO Q6H PRN (Reason: Nausea And Vomiting) RF: 0 dicyclomine 10 mg capsule 2 cap PO QID PRN (Reason: Abdominal Discomfort) RF: 0 quetiapine 25 mg tablet 25 mg PO BID@1000,1500 RF: 0 pyridoxine (vitamin B6) 100 mg tablet 100 mg PO DAILY 90 Days Qty: 90 RF: 1 Discharge Orders: Discharge Order (Routine); Ordered 06/04/21 Ordered By: Yvette Burger Diet: advance to usual diet Activity on Discharge: As tolerated Stand Alone Forms: Patient Portal Discharge page, Work/School Release Other Ambulatory Orders: Liver Panel (Routine) Timeframe: 1 Week Facility: [facility] - Location: Laboratory Ordered By: Yvette Burger Care Plan Goals: Read below Health Concerns: Read below Plan of Treatment: Read below Assessment: You were admitted to the hospital for evaluation of abdominal pain. Found to have elevated liver enzymes. Evaluated by journeyman apprentice electricians who did a procedure cold ERCP finding a stricture in your pancreatic duct. A stent was placed with good response as your liver enzymes start to go down. To follow-up with Dr. Jennings in the office in few weeks to follow-up on the biopsy results and for further evaluation if needed. Discharge Date/Time: 06/04/21 12:20
--- NOTE | 2021-06-04 11:23 | HO.POSTANES ---
Post Anesthesia Evaluation Post Anesthesia Evaluation Vital Signs: Vital Signs Temp Pulse Resp BP Pulse Ox 06/04/21 08:00 98.1 F 69 16 119/68 100 06/04/21 00:00 97.4 F 64 17 100/55 L 95 Anesthesia: General Endotracheal-GETA Mental Status: Awake Pain Control: Satisfactory Nausea/Vomiting: None Hydration: Adequate Anesthesia-Related Issues: No Anes. Related Issues
[2021-06-06 09:02] LABS: Carbohydrate Antigen 19-9 11 U/mL (<34)
== END 2021-06-04 12:20 | disposition home or self-care (01) ==
LOC: HO.ED 05-30 06:18 → HO.EDOVER 05-30 09:10 → HO.S3 05-30 19:29
PROVIDERS: Internal Medicine; Internal Medicine Gastroenterology; Admitting Provider Internal Medicine; Emergency Provider Student in an Organized Health Care Education/Training Program; PCP Nurse Practitioner Family; Visit Provider Student in an Organized Health Care Education/Training Program
PROC: 0FD98ZX Extraction of Common Bile Duct, Via Natural or Artificial Opening Endoscopic, Diagnostic (ICD-10-PCS; CPT 43260; principal; 2021-06-03 15:00)
DX: K83.1 Obstruction of bile duct (principal); K85.90 Acute pancreatitis without necrosis or infection, unspecified; K75.9 Inflammatory liver disease, unspecified; E78.5 Hyperlipidemia, unspecified; F17.210 Nicotine dependence, cigarettes, uncomplicated; F32.A Depression, unspecified; Z71.6 Tobacco abuse counseling; Z20.822 Contact with and (suspected) exposure to COVID-19; Z80.0 Family history of malignant neoplasm of digestive organs; Z79.899 Other long term (current) drug therapy
CPT/HCPCS: 36415; 74177; 74183; 80048; 80053; 80076; 81001; 82248; 82784; 82977; 83690; 85025; 85027; 85610; 86301; 87635; 88112; 88305; 94640; 96361; 96374; 96375; 99285; A9585; C1769; C2617; J1100; J1170; J1200; J1610; J1650; J1956; J2250; J2370; J2405; J3010; Q9967

== ENCOUNTER 2021-06-09 10:45 | Inpatient (IN) | payer OTHER, SELFPAY ==
--- NOTE | ~2021-06-09 | CT_ITS ---
EXAMINATION: CT ABDOMEN AND PELVIS WITH CONTRAST CLINICAL INFORMATION: Pain. Post biliary stent. COMPARISON: Previous CT of the abdomen and pelvis most recent 05/30/2021, MRI of the abdomen 06/01/2019 recent January 2021 TECHNIQUE: Multidetector volumetric images were obtained from the superior aspect of the liver through the pubic symphysis following administration 85 mL of Omnipaque 350 intravenous contrast. Sagittal and coronal reformatted images were obtained on the technologist's workstation. Oral contrast: Yes. This CT examination was performed using dose optimization techniques as appropriate, variously including the following: *Automated exposure control *Adjustment of mA and/or kV according to patient size (this includes techniques or standardized protocols for targeted exams where dose is matched to indication/reason for exam; i.e. extremities or head) *Use of iterative reconstruction technique DLP: 393 mGy-cm FINDINGS: LUNG BASES: There is dependent atelectasis seen at the lung bases. There are small right cardiophrenic angle or anterior diaphragmatic lymph nodes that are unchanged. LIVER, GALLBLADDER, AND BILIARY TREE: There is a new stent seen in the extrahepatic bile ducts. There is interval decrease in biliary duct dilatation. There is new air seen in the bile ducts. The gallbladder appears less distended. There is air in the gallbladder as well. There is still a question of gallbladder wall enhancement. Bile duct enhancement seen on prior CT and MRI is not appreciated possibly secondary to artifact from the stent. No gallstones are seen. PANCREAS: The head of the pancreas is enlarged and may be slightly increased in size. There may be slight interval decrease in enhancement of the head of the pancreas compared to prior exam, particularly the uncinate process. There is fat stranding surrounding the head of the pancreas and a small amount of fluid. This appears slightly increased from 05/30/2021 exam. The body and tail of the pancreas enhance normally. The main pancreatic duct is minimally dilated measuring 4 mm. This is slightly increased from previous exam as well. SPLEEN: Unremarkable. ADRENAL GLANDS: Unremarkable. KIDNEYS AND URETERS: There are small right renal stones that are unchanged. There is a 1 cm cyst in the upper pole of the right kidney that is unchanged. The left kidney is unremarkable. BLADDER: Unremarkable. GASTROINTESTINAL TRACT: The small and large bowel are unremarkable. The appendix is unremarkable. The stomach is unremarkable. No ascites or free air. ABDOMINAL WALL: No significant hernia is appreciated. LYMPH NODES: There are small periportal and upper abdominal retroperitoneal lymph nodes. These do not appear appreciably changed. VASCULAR: Unremarkable. PELVIC VISCERA: There is question of a small posterior uterine body fibroid measuring 2 x 2.4 cm. The uterus and adnexa are otherwise unremarkable. OSSEOUS STRUCTURES: Unremarkable. CT/CT abdomen pelvis w con IMPRESSION: New plastic stent in the common hepatic and common bile duct. Interval decrease in biliary duct dilatation and gallbladder size. There still may be enhancement of the gallbladder wall. Enhancement of the bile ducts is difficult to evaluate due to artifact from the stent. Enlarged head of the pancreas and question decreased enhancement. Increase in stranding of the surrounding fat and increase in fluid surrounding the head of the pancreas. Findings are questionable for worsening focal pancreatitis of the head of the pancreas. Mild dilatation of the main pancreatic duct measuring up to 4 mm also slightly increased. Right renal stones. Probable small fibroid. . Fleischner guidelines were followed.
[2021-06-09 11:44] VITALS: BP 112/76; PULSE 82; RESP 20; TEMP 36.7; O2SAT 98; BMI 21.7
--- NOTE | 2021-06-09 12:57 | PC.NURSE ---
Pt received from triage: Pt AOX4 and c/o gen abd pain with N/V. Pt is known to have Pancreatic CA. Heart sounds normal, lungs clear. Pt abd soft and gen tender.
[2021-06-09 12:58] LABS: MANUAL DIFF FLAG NO
[2021-06-09 13:02] LABS: Basophils Percent Auto 0.5 % (0-2); Eosinophils Absolute Auto 0.1 X10*3/uL (0.0-0.4); Eosinophils Percent Auto 0.7 % (0-4); Hematocrit 42.3 % (37.0-47.0); Hemoglobin 14.2 g/dl (12.0-16.0); Imm Gran Abs Auto 0.02 X10*3/uL (0.00-0.03); Imm Gran Pct Auto 0.2 % (0.0-0.4); Lymphocytes Absolute Auto 2.4 X10*3/uL (1.2-4.9); Lymphocytes Percent Auto 28.8 % (20-40); Mean Corpuscular HGB Conc 33.6 g/dl (31.0-35.0); Mean Corpuscular Hemoglobin 30.2 pg (27.0-33.0); Mean Platelet Volume 10.1 fL (9.4-12.3); Monocytes Absolute Auto 0.6 X10*3/uL (0.1-1.2); Monocytes Percent Auto 6.9 % (2-11); Neutrophils Absolute Auto 5.3 x10*3/uL (2.0-8.3); Neutrophils Percent Auto 62.9 % (45-73); Platelet Count 404 X10*3/uL (160-400); Red Cell Distribution Width 15.3 % (11.0-16.0); White Blood Count 8.4 X10*3/uL (4.8-10.8)
--- NOTE | 2021-06-09 13:02 | ED.GENADULT ---
HPI - General Adult General Chief complaint: Nausea/Vomiting/Diarrhea Stated complaint: Vomiting Time Seen by Provider: 06/09/21 12:50 Source: patient Mode of arrival: ambulatory Limitations: no limitations History of Present Illness HPI narrative: 51-year-old female with past medical history of pancreatitis presents to ED for abdominal pain with nausea & vomitting. Patient states since having biliary stent placement for her pancreatitis that occurred last week and then on Tuesday started having symptoms of upper abdominal pain with nausea & vomiting. Patient states she had 1 small bowel movement yesterday and usually have bowel movements every other 3 days. Patient states also told by her port traffic manager on Tuesday she had possible pancreatic cancer and there is a plan for her to be evaluated at [facility]. Patient denies any lower abdominal pain. Related Data Home Medications Medication Instructions Recorded Confirmed dicyclomine 10 mg capsule 2 cap PO QID PRN 05/30/21 05/30/21 ondansetron HCl 4 mg tablet 4 tab PO Q6H PRN 05/30/21 05/30/21 quetiapine 25 mg tablet 25 mg PO BID@1000,1500 05/30/21 05/30/21 Previous Rx's Medication Instructions Recorded cholecalciferol (vitamin D3) 50 50 mcg PO DAILY 90 Days #90 tab 05/29/20 mcg (2,000 unit) tablet albuterol sulfate 90 mcg/actuation 2 puff PO Q4H PRN #8.5 g 08/06/20 aerosol inhaler quetiapine 300 mg tablet (Seroquel) 300 mg PO BEDTIME 90 Days #90 tab 02/14/21 pyridoxine (vitamin B6) 100 mg 100 mg PO DAILY 90 Days #90 tab 04/29/21 tablet nicotine 14 mg/24 hr daily 1 patch TRANSDERMAL DAILY 28 Days 05/10/21 transdermal patch #28 ea atorvastatin 20 mg tablet 20 mg PO BEDTIME 90 Days #90 tab 05/13/21 omeprazole 20 mg capsule,delayed 20 mg PO DAILY@0630 90 Days #90 cap 06/04/21 release oxycodone 5 mg tablet 2.5 mg PO Q6H PRN #10 tab 06/04/21 Allergies Allergy/AdvReac Type Severity Reaction Status Date / Time No Known Allergies Allergy Verified 04/29/21 11:50 [No Known Allergies*] Review of Systems Review of Systems: Upper abdominal pain with nausea vomiting PMFSH Past Medical History Medical History Adenocarcinoma of pancreas Encounter for screening colonoscopy Kidney stones Microscopic hematuria Right thyroid nodule Screening for colon cancer Family History Family History Father Pancreatic cancer Mother Pancreatic cancer Social History Social History Household Members: Other Housing: House Alcohol intake: never Patient Tobacco Use Status: Current everyday Tobacco user Tobacco use type: Cigarette Cigarettes Per Day: 2 Second Hand Smoke Exposure: No Substance Use Type: Marijuana Advance Directives: Yes Advance Directives on File: Yes Advance Directives Date on File: 01/24/21 Patient : No service: No Current occupational status: unemployed 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 Physical Exam Vital Signs: Vital Signs: Last Vital Signs Temp 99.2 F 06/09/21 14:45 Pulse 64 06/09/21 14:45 Resp 16 06/09/21 14:45 BP 131/65 06/09/21 14:45 Pulse Ox 100 06/09/21 14:45 BMI result Body Mass Index 21.7 Const: General: cooperative, healthy appearing, comfortable, no acute distress, well developed, alert, awake and Physically active Orientation/consciousness: patient oriented x3 HENMT: Head: Yes normal to inspection, Yes No palpable skull fracture present, Yes normocephalic and Yes atraumatic Eyes: General: appearance normal, both eyes and all related structures Neck: Neck: Yes normal visual inspection, Yes full ROM, Yes no lymphadenopathy, Yes no meningeal signs, Yes trachea midline, Yes supple, No anterior neck swelling and No tender Chest: Chest palpation & inspection: normal inspection of the chest and normal palpation of entire chest wall Resp: Effort & Inspection: normal respiratory effort and able to speak in complete sentences Auscultation: clear to auscultation bilaterally Cardio: Jugular venous distension: no JVD Heart sounds: S1 normal heart sound present and S2 normal heart sound present GI: Inspection: Yes normal to inspection and No abdominal wall ecchymosis Palpation (GI): Tenderness to palpation present (GI) in the epigastrum and in the RUQ, no guarding and not rigid : General: No CVA tenderness and Yes no CVA tenderness Back/Spine/Pelvis: Back: no CVA tenderness, No CVA tenderness and No back tenderness Skin: General skin exam: no rashes or lesions noted and elasticity normal Neuro: General: patient oriented x3, gait normal, no meningeal signs and CN's II-XI intact bilaterally Cranial nerves: Yes CN's II-XII intact bilaterally Extrem: General: Yes normal to inspection and Yes full ROM Psych: Appearance: grossly normal, well kempt and not disheveled Course Course Course Narrative: Labs will be drawn and repeat CT scan IV morphine and Zofran ordered Reevaluation(s) Reevaluation #1: Patient's HCG is 5. Patient states she has been menopausal for 1 year and a half. Patient states last time she had sex was over one year. Patient slightelevation most likely due to her panacreatic CA. Will ordered Abdominal CT scan. Case and HCG discussed with Dr. Valadez who agrees patient is not and should go for abdominal CT scan. Troponin EKG negative Time: 02:29 Reevaluation #2: Abdominal CT scan shows worsening pancreatitis. Due to patient having recent procedure, ERCP, case was discussed with Dr. Fuller, port traffic manager on-call. He recommends patient be admitted for ERCP induced pancreatitis. Recommends Lactate Ringer and Pentoxifylline PO and Dr. Jennings will re-evaluate in the morning. Time: 16:12 Medical Decision Making [facility] Narrative Medical decision making narrative: Pancreatitis Lab Data Result diagrams: 06/09/21 12:55 06/09/21 12:55 Labs: Lab Results 06/09/21 06/09/21 06/09/21 Range/Units 12:55 12:55 14:14 WBC 8.4 (4.8-10.8) X10*3/uL RBC 4.70 (4.20-5.50) X10*6/uL Hgb 14.2 D (12.0-16.0) g/dl Hct 42.3 D (37.0-47.0) % MCV 90.0 (80.0-98.0) fL MCH 30.2 (27.0-33.0) pg MCHC 33.6 (31.0-35.0) g/dl RDW 15.3 (11.0-16.0) % Plt Count 404 H D (160-400) X10*3/uL MPV 10.1 (9.4-12.3) fL Immature Gran % (Auto) 0.2 (0.0-0.4) % Neut % (Auto) 62.9 (45-73) % Lymph % (Auto) 28.8 (20-40) % [place] % (Auto) 6.9 (2-11) % Eos % (Auto) 0.7 (0-4) % Baso % (Auto) 0.5 (0-2) % Lymph # (Auto) 2.4 (1.2-4.9) X10*3/uL [place] # (Auto) 0.6 (0.1-1.2) X10*3/uL Eos # (Auto) 0.1 (0.0-0.4) X10*3/uL Baso # (Auto) 0.0 (0.0-0.2) X10*3/uL Abs Immat Gran (auto) 0.02 (0.00-0.03) X10*3/uL Absolute Neuts (auto) 5.3 (2.0-8.3) x10*3/uL Absolute Nucleated RBC 0.000 (0.0-0.012) X10*3/uL Nucleated RBC % (auto) 0.0 (0.0-0.2) /100WBC Sodium 139 (135-145) mmol/L Potassium 4.1 (3.3-5.1) mmol/L Chloride 102 (96-108) mmol/L Carbon Dioxide 28 (22-29) mmol/L Anion Gap 13 (12-20) BUN 10 D (9-16) mg/dL Creatinine 0.72 (0.5-1.4) mg/dL Estim Creat Clear Calc 86.5 Estimated GFR > 60 Random Glucose 121 H (60-115) mg/dL Calcium 10.0 (8.4-10.2) mg/dL Total Bilirubin 1.5 H (0.0-1.0) mg/dL Direct Bilirubin 0.9 H (0.0-0.5) mg/dL AST 115 H (5-31) U/L ALT 285 H (0-31) U/L Alkaline Phosphatase 525 H D (39-117) U/L Troponin I High Sens < 3.5 (<3.5-17.0) ng/L Total Protein 7.0 D (6.5-8.0) g/dL Albumin 3.8 (3.5-5.0) g/dL Lipase 126 H (8-78) U/L Beta HCG, Quant 5 mIU/mL ECG Data Interpretation: Normal sinus rhythm. Ventricular rate 67. Pr interval 128. QRS 78. QTC 462. Negative STEMI Discharge Plan Discharge Clinical Impression: Acute pancreatitis Patient Disposition: Admitted As Inpatient
[2021-06-09] MEDS: Morphine Sulfate 4 MG/ML CARTRIDGE IVPUSH (13:08)
[2021-06-09] MEDS: ondansetron HCL 4 MG/2 ML VIAL IVPUSH ×2 (13:08→20:08)
[2021-06-09] MEDS: 0.9 % Sodium Chloride 1,000 ML 999 ML IV (13:11)
[2021-06-09 13:27] LABS: Alanine Aminotransferase 285 U/L (0-31); Albumin Level 3.8 g/dL (3.5-5.0); Alkaline Phosphatase 525 U/L (39-117); Anion Gap 13 (12-20); Aspartate Amino Transferase 115 U/L (5-31); Bilirubin Direct 0.9 mg/dL (0.0-0.5); Bilirubin Total 1.5 mg/dL (0.0-1.0); Blood Urea Nitrogen 10 mg/dL (9-16); Carbon Dioxide 28 mmol/L (22-29); Chloride 102 mmol/L (96-108); Creatinine Clr Calc Pharmacy 86.5; Estimated Glomerular Filt Rate > 60; Glucose Random 121 mg/dL (60-115); Lipase 126 U/L (8-78); Potassium 4.1 mmol/L (3.3-5.1); Sodium 139 mmol/L (135-145)
[2021-06-09 13:29] LABS: HCG Quantitative 5 mIU/mL
--- NOTE | 2021-06-09 14:05 | ECG_ITS ---
Test Reason : nausea/vomiting Blood Pressure : / mmHG Vent. Rate : 067 BPM Atrial Rate : 067 BPM P-R Int : 128 ms QRS Dur : 078 ms QT Int : 438 ms P-R-T Axes : 021 046 058 degrees QTc Int : 462 ms Normal sinus rhythm with sinus arrhythmia Normal ECG When compared with ECG of 24-JAN-2021 13:32, QT has lengthened Referred By: Shilo Martinez Electronically Signed By:Abebe Gonzales
[2021-06-09 14:42] LABS: Troponin-I High Sensitivity < 3.5 ng/L (<3.5-17.0)
[2021-06-09] MEDS: iohexoL 350 MG/ML 100 ML INFUS..BTL IV (14:44)
[2021-06-09 14:45] VITALS: BP 131/65; PULSE 64; RESP 16; TEMP 37.3; O2SAT 100
[2021-06-09] MEDS: Pentoxifylline ER 400 MG TABLET.ER PO ×2 (16:06→21:21)
[2021-06-09] MEDS: Lactated Ringers 1,000 ML 500 ML IV (16:06)
--- NOTE | 2021-06-09 16:39 | PM.IMHP ---
History of Present Illness Date of Service: 06/09/21 Chief Complaint: abd pain 51F with past medical history of recurrent pancreatitis, most recently discharged 06/04/2021 after ERCP and stent placement. Pathology did come back positive for adenocarcinoma of the pancreas. Patient initially felt well after stent placement. However, 2 days prior to presentation she BN to feel familiar feeling of epigastric 10/10 pain radiating to back associated with decreased appetite, nausea, vomiting, inability to tolerate p.o.. In ED found to have pancreatitis on CT scan lipase of 126, was 33 at discharge. Review of Systems Review of Systems: Constitutional: Denies fever, denies Chills Eyes: denies blurry vision ENT: denies sore throat CVS: denies chest pain Respiratory: Denies dyspnea GI: abdominal pain : denies dysuria MSK: denies neck pain Skin: denies rash Neuro: denies specific motor weakness Psych: denies suicidal ideation Endocrine: denies heat/cold intolerance Hematologic: denies easy bleeding Allergy: denies hives [facility] Medical History Adenocarcinoma of pancreas Encounter for screening colonoscopy Kidney stones Microscopic hematuria Right thyroid nodule Screening for colon cancer Family History Father Pancreatic cancer Mother Pancreatic cancer Social History Household Members: Other Housing: House Alcohol intake: never Patient Tobacco Use Status: Current everyday Tobacco user Tobacco use type: Cigarette Cigarettes Per Day: 2 Second Hand Smoke Exposure: No Substance Use Type: Marijuana Advance Directives: Yes Advance Directives on File: Yes Advance Directives Date on File: 01/24/21 Patient : No service: No Current occupational status: unemployed 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 Allergies Allergy/AdvReac Type Severity Reaction Status Date / Time No Known Allergies Allergy Verified 04/29/21 11:50 [No Known Allergies*] Active Medications: Current Medications Enoxaparin Sodium (Enoxaparin Sodium 40 Mg/0.4 Ml Syringe) 40 mg SUBCUT Q24H MICHEL Hydromorphone HCl (Hydromorphone Hcl 1 Mg/Ml Syringe) 0.5 mg IVPUSH Q2H PRN; Protocol PRN Reason: moderate pain Lactated Ringer's (Lr) 1,000 mls @ 500 mls/hr IV .Q2H [facility] Stop: 06/09/21 17:44 Last Admin: 06/09/21 16:06 Dose: 500 mls/hr Documented by: Lactated Ringer's (Lr) 1,000 mls @ 150 mls/hr IVCONT .Q6H40M [facility] Pharmacy Consult (Consult Rx Perform Med Rec) 1 each MISCELLANE ONCE PRN PRN Reason: Consult order Sodium Chloride (0.9 % Sodium Chloride Flush 3 Ml Syringe) 3 ml IVFLUSH QSHIFT [facility] Home Medications Medication Instructions Recorded Confirmed Last Taken Type dicyclomine 10 mg capsule 2 cap PO QID PRN 05/30/21 05/30/21 05/27/21 History ondansetron HCl 4 mg tablet 4 tab PO Q6H PRN 05/30/21 05/30/21 05/27/21 History quetiapine 25 mg tablet 25 mg PO BID@1000,1500 05/30/21 05/30/21 05/27/21 History Physical Exam Vital Signs and Narrative: Vital Signs: Last Vital Signs Temp 99.2 F 06/09/21 14:45 Pulse 64 06/09/21 14:45 Resp 16 06/09/21 14:45 BP 131/65 06/09/21 14:45 Pulse Ox 100 06/09/21 14:45 BMI result Body Mass Index 21.7 General: no acute distress HEENT: atraumatic Neck: normal to visual inspection CVS: S1, S2, RRR Resp: CTA bilateral Chest: non tender GI: soft, tender, non distended : no CVA tenderness Skin: no rashes Extremities: no edema Neuro: Oriented X3, grossly intact Psych: cooperative Results Labs CBC and Chem 7: 06/09/21 12:55 06/09/21 12:55 Labs: Laboratory Results - last 24 hr 06/09/21 06/09/21 06/09/21 12:55 12:55 14:14 MCV 90.0 MCH 30.2 MCHC 33.6 RDW 15.3 Plt Count 404 H D MPV 10.1 Immature Gran % (Auto) 0.2 Neut % (Auto) 62.9 Lymph % (Auto) 28.8 [place] % (Auto) 6.9 Eos % (Auto) 0.7 Baso % (Auto) 0.5 Lymph # (Auto) 2.4 [place] # (Auto) 0.6 Eos # (Auto) 0.1 Baso # (Auto) 0.0 Abs Immat Gran (auto) 0.02 Absolute Neuts (auto) 5.3 Absolute Nucleated RBC 0.000 Nucleated RBC % (auto) 0.0 Anion Gap 13 Estim Creat Clear Calc 86.5 Estimated GFR > 60 Random Glucose 121 H Calcium 10.0 Total Bilirubin 1.5 H Direct Bilirubin 0.9 H AST 115 H ALT 285 H Alkaline Phosphatase 525 H D Troponin I High Sens < 3.5 Total Protein 7.0 D Albumin 3.8 Lipase 126 H Beta HCG, Quant 5 Imaging Radiologist's Impressions: Impressions Abdomen/Pelvis CT 06/09/21 14:43 IMPRESSION: New plastic stent in the common hepatic and common bile duct. Interval decrease in biliary duct dilatation and gallbladder size. There still may be enhancement of the gallbladder wall. Enhancement of the bile ducts is difficult to evaluate due to artifact from the stent. Enlarged head of the pancreas and question decreased enhancement. Increase in stranding of the surrounding fat and increase in fluid surrounding the head of the pancreas. Findings are questionable for worsening focal pancreatitis of the head of the pancreas. Mild dilatation of the main pancreatic duct measuring up to 4 mm also slightly increased. Right renal stones. Probable small fibroid. . Fleischner guidelines were followed. Assessment and Plan (1) Acute pancreatitis: Status: Acute 51-year-old female presented with abdominal pain Acute recurrent pancreatitis status post ERCP on 06/04/2021 NPO IV fluids Pain medications Pentoxifylline GI eval Recent diagnosis of adenocarcinoma of the pancreas Plan to follow-up at [facility] DVT prophylaxis Lovenox Quality Stroke Does the patient have a stroke diagnosis?: No VTE Prior VTE?: No VTE Risk Level:: Medical - moderate - high VTE Device Contraindication: Treatment Not Indicated VTE Drug Contraindication: N/A - Med Ordered
[2021-06-09] MEDS: Lactated Ringers 1,000 ML 150 ML IVCONT ×2 (16:55→21:21)
[2021-06-09 17:12] LABS: COVID-19 Test Negative (Negative)
--- NOTE | 2021-06-09 18:09 | PHA.MEDREC ---
Pharmacy Consult ? Medication Reconciliation Pharmacy has completed the medication reconciliation.
[2021-06-09] MEDS: Enoxaparin Sodium 40 MG/0.4 ML SYRINGE SUBCUT (18:13)
[2021-06-09] MEDS: HYDROmorphone HCl 1 MG/ML SYRINGE 0.5 MG IVPUSH ×3 (18:13→23:21)
[2021-06-09 18:16] VITALS: BP 128/57; PULSE 52; RESP 18; O2SAT 100
--- NOTE | 2021-06-09 19:18 | PC.NURSE ---
This RN to bedside, pt resting on stretcher in NAD, breathing with ease on RA, aaox4, reports 4/10 pain which is improved since prior to pain meds. pt endorses nausea, this rn TT devineni to request prn antiemetic, awaiting orders at this time. pt offers no additional complaints/concerns. Pt stretcher in low locked position, rails raised, call morin within reach.
[2021-06-09] MEDS: QUEtiapine Fumarate 300 MG TABLET PO (20:08)
--- NOTE | 2021-06-09 20:15 | PC.NURSE ---
pt vomited liquid, this rn to bedside, medicated pt with zofran and seroquel as ordered. awaiting trental from pharmacy.
[2021-06-09 20:22] VITALS: RESP 15
[2021-06-09 21:22] VITALS: BP 110/56; PULSE 71; RESP 17; TEMP 36.9; O2SAT 97
--- NOTE | 2021-06-09 22:40 | PC.NURSE ---
Report given to Michael, plan for tech to transfer to floor.
[2021-06-10] VITALS (7 sets, daily range): BP systolic 105–160; BP diastolic 52–76; PULSE 55–70; RESP 16–20; TEMP 36–36.8; O2SAT 95–100; BMI 21.7
[2021-06-10] MEDS: ondansetron HCL 4 MG/2 ML VIAL IVPUSH ×2 (04:45→20:30)
[2021-06-10] MEDS: HYDROmorphone HCl 1 MG/ML SYRINGE 0.5 MG IVPUSH ×2 (04:45→08:49)
[2021-06-10 04:59] LABS: Hematocrit 41.1 % (37.0-47.0); Hemoglobin 13.4 g/dl (12.0-16.0); Mean Corpuscular HGB Conc 32.6 g/dl (31.0-35.0); Mean Corpuscular Hemoglobin 29.8 pg (27.0-33.0); Mean Corpuscular Volume 91.5 fL (80.0-98.0); Mean Platelet Volume 10.9 fL (9.4-12.3); Platelet Count 348 X10*3/uL (160-400); Red Blood Count 4.49 X10*6/uL (4.20-5.50); Red Cell Distribution Width 15.2 % (11.0-16.0); White Blood Count 7.5 X10*3/uL (4.8-10.8)
[2021-06-10 05:26] LABS: Alanine Aminotransferase 255 U/L (0-31); Albumin Level 3.6 g/dL (3.5-5.0); Alkaline Phosphatase 453 U/L (39-117); Anion Gap 14 (12-20); Aspartate Amino Transferase 108 U/L (5-31); Bilirubin Direct 0.9 mg/dL (0.0-0.5); Bilirubin Total 1.5 mg/dL (0.0-1.0); Blood Urea Nitrogen 10 mg/dL (9-16); Calcium 9.7 mg/dL (8.4-10.2); Carbon Dioxide 26 mmol/L (22-29); Chloride 104 mmol/L (96-108); Creatinine Clr Calc Pharmacy 94.4; Estimated Glomerular Filt Rate > 60; Glucose Fasting 96 mg/dL (60-99); Lipase 167 U/L (8-78); Sodium 140 mmol/L (135-145); Total Protein 6.3 g/dL (6.5-8.0)
[2021-06-10] MEDS: Lactated Ringers 1,000 ML 150 ML IVCONT ×3 (08:35→20:36)
--- NOTE | 2021-06-10 08:35 | P.PNIM_ITS ---
Subjective Subjective Date of Service: 06/10/21 Interval History: cc: abd pain interval history: minimal improvement, wants to try clears Cardiovascular Cardiovascular: Reports no additional cardiovascular complaints Respiratory Respiratory: Reports no additional respiratory complaints Physical Exam Vital Signs: Vital Signs: Last Vital Signs Temp 98.1 F 06/10/21 07:30 Pulse 67 06/10/21 07:30 Resp 20 06/10/21 07:30 BP 132/65 06/10/21 07:30 Pulse Ox 98 06/10/21 07:30 BMI result Body Mass Index 21.7 General: AO X 3, no acute distress Resp: CTA bilateral, no accessory muscles used CVS: S1,S2,RRR GI: soft, epigastric tender, non distended Neuro: motor grossly intact, alert Psych: appropriate affect, appropriate insight Objective Data Active Medications Enoxaparin Sodium (Enoxaparin Sodium 40 Mg/0.4 Ml Syringe) 40 mg SUBCUT Q24H [facility] Last Admin: 06/09/21 18:13 Dose: 40 mg Documented by: JOSHUA Hydromorphone HCl (Hydromorphone Hcl 1 Mg/Ml Syringe) 1 mg IVPUSH Q2H PRN; Protocol PRN Reason: moderate pain Lactated Ringer's (Lr) 1,000 mls @ 150 mls/hr IVCONT .Q6H40M [facility] Last Infusion: 06/10/21 04:36 Dose: 0 mls/hr Documented by: BELIA Ondansetron HCl (Ondansetron Hcl 4 Mg/2 Ml Vial) 4 mg IVPUSH Q8H PRN PRN Reason: Nausea and Vomiting Last Admin: 06/10/21 04:45 Dose: 4 mg Documented by: BELIA Pharmacy Consult (Consult Rx Perform Med Rec) 1 each MISCELLANE ONCE PRN PRN Reason: Consult order Quetiapine Fumarate (Quetiapine Fumarate 300 Mg Tablet) 300 mg PO BEDTIME [facility] Last Admin: 06/09/21 20:08 Dose: 300 mg Documented by: SUMAYA Sodium Chloride (0.9 % Sodium Chloride Flush 3 Ml Syringe) 3 ml IVFLUSH QSHIFT [facility] Last Admin: 06/10/21 08:27 Dose: Not Given Documented by: JEFE Non-Admin Reason: IV Running Labs CBC & Chem 7: 06/10/21 04:09 06/10/21 04:09 Labs: Laboratory Results - last 24 hr 06/09/21 06/09/21 06/09/21 12:55 12:55 14:14 MCV 90.0 MCH 30.2 MCHC 33.6 RDW 15.3 Plt Count 404 H D MPV 10.1 Immature Gran % (Auto) 0.2 Neut % (Auto) 62.9 Lymph % (Auto) 28.8 [place] % (Auto) 6.9 Eos % (Auto) 0.7 Baso % (Auto) 0.5 Lymph # (Auto) 2.4 [place] # (Auto) 0.6 Eos # (Auto) 0.1 Baso # (Auto) 0.0 Abs Immat Gran (auto) 0.02 Absolute Neuts (auto) 5.3 Absolute Nucleated RBC 0.000 Nucleated RBC % (auto) 0.0 Anion Gap 13 Estim Creat Clear Calc 86.5 Estimated GFR > 60 Random Glucose 121 H Fasting Glucose Calcium 10.0 Total Bilirubin 1.5 H Direct Bilirubin 0.9 H AST 115 H ALT 285 H Alkaline Phosphatase 525 H D Troponin I High Sens < 3.5 Total Protein 7.0 D Albumin 3.8 Lipase 126 H Beta HCG, Quant 5 COVID-19 ([facility]ARAT) COVID-19 [employer] 06/09/21 06/10/21 06/10/21 16:54 04:09 04:09 MCV 91.5 MCH 29.8 MCHC 32.6 RDW 15.2 Plt Count 348 MPV 10.9 Immature Gran % (Auto) Neut % (Auto) Lymph % (Auto) [place] % (Auto) Eos % (Auto) Baso % (Auto) Lymph # (Auto) [place] # (Auto) Eos # (Auto) Baso # (Auto) Abs Immat Gran (auto) Absolute Neuts (auto) Absolute Nucleated RBC 0.000 Nucleated RBC % (auto) 0.0 Anion Gap 14 Estim Creat Clear Calc 94.4 Estimated GFR > 60 Random Glucose Fasting Glucose 96 Calcium 9.7 Total Bilirubin 1.5 H Direct Bilirubin 0.9 H AST 108 H ALT 255 H Alkaline Phosphatase 453 H Troponin I High Sens Total Protein 6.3 L Albumin 3.6 Lipase 167 H Beta HCG, Quant COVID-19 ([facility]ARAT) Negative COVID-19 Clin Com See Note Assessment and Plan (1) Acute pancreatitis: Status: Deleted (2) Adenocarcinoma of pancreas: Status: Acute (3) Acute pancreatitis: Status: Acute Assessment and Plan: 51-year-old female presented with abdominal pain Acute recurrent pancreatitis status post ERCP on 06/04/2021 will advance to clear liquids continue IV fluids increase hydromorphone to 1mg Pentoxifylline GI follow up Recent diagnosis of adenocarcinoma of the pancreas Plan to follow-up at [facility] DVT prophylaxis Lovenox Quality Stroke Does the patient have a stroke diagnosis?: No VTE Prior VTE?: No VTE Risk Level:: Medical - moderate - high VTE Device Contraindication: Treatment Not Indicated VTE Drug Contraindication: N/A - Med Ordered
--- NOTE | 2021-06-10 08:41 | MHC.CM.PN ---
CM met with Patient at bedside. Patient lives in an apartment with her 22 year old Son and she is functionally independent.Patient's goal is to return home and CM has initiated and will follow for dc planning. PCP is Dr. Tony Delong and Patient's Boyfriend will provide transportation to home.
[2021-06-10] MEDS: HYDROmorphone HCl 1 MG/ML SYRINGE IVPUSH ×4 (11:05→20:31)
--- NOTE | 2021-06-10 12:45 | PM.EVENT ---
Event Note Date of Service: 06/10/21 Event Note: GI-Full consult dictated Imp: Pancreatic cancer involving the head of the pancreas with component of pain, N/V, and pancreatitis due to that. I don't think this is an ERCP-induced pancreatitis. Her biliary stent seems to be functioning well based on her labs and imaging study. Rec: Transition to oral pain medication to allow for discharge and ability to maintain oral intake, We are in the midst of working out a referral to a tertiary center for further w/u and treatment of the pancreatic cancer. We will follow her up as an outpatient. Roberto/Jerzy Hill in detail and she is comfortable with this plan. Thanks
--- NOTE | 2021-06-10 13:24 | CONS_ITS ---
DATE OF SERVICE: 06/10/2021 REASON FOR CONSULTATION: Abdominal pain, pancreatic cancer, and pancreatitis. HISTORY OF PRESENT ILLNESS: The patient is a 51-year-old female, well known to me with a several month history of abdominal pain and pancreatitis. 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 Her family history is notable for report of the both parents having had pancreatic cancer. In January, she had been hospitalized for pancreatitis with an otherwise negative workup. Since that time, she has had fairly persistent low-grade pain, but did have an exacerbation earlier this month requiring hospitalization and again was found to have some inflammatory changes in the head of the pancreas, but on this occasion had signs of biliary obstruction on imaging studies and laboratories. She underwent ERCP with Dr. Jennings with the finding of a distal biliary stricture with brushings positive for adenocarcinoma. A biliary stent was placed with good improvement of her LFTs. She was discharged just about a week ago, but had to come back in because of increasing pain and some vomiting. She did not notice any jaundice, hematemesis, coffee-grounds emesis, fever, melena, nor hematochezia. Since being admitted here, she has been still having pain, but is trying to start some clear liquids today. She has been afebrile. CURRENT MEDICATIONS: Lovenox, Dilaudid p.r.n., Zofran p.r.n., and Seroquel. PAST MEDICAL HISTORY: Pancreatitis with recent diagnosis of pancreatic cancer as above, distant history of alcohol abuse, tubal ligation, depression. She denies any preceding history of pancreatitis, heart disease, diabetes, stroke, lung disease, or kidney disease. SOCIAL HISTORY: She does smoke. She lives with a boyfriend. FAMILY HISTORY: As above with both parents having reported pancreatic cancer. REVIEW OF SYSTEMS: CONSTITUTIONAL: She has been having pain at home with anorexia and some vomiting. SKIN: She has had some pruritus in relation to previous jaundice. CARDIAC: No chest pain. PULMONARY: No cough or hemoptysis. GI: As above. PHYSICAL EXAMINATION: GENERAL: The patient is a pleasant, alert, comfortable-appearing female, in no distress. She has been afebrile. SKIN: Warm and dry. Anicteric sclerae. CHEST: Clear. CARDIAC: Normal S1 and S2. ABDOMEN: Soft. Normal bowel sounds. Nondistended. She does have upper abdominal tenderness, but no mass or rebound. EXTREMITIES: Without edema. LABORATORY DATA: White blood cell count 7.5, hemoglobin 13.4, platelets 248,000. Normal electrolytes. BUN 10, creatinine 0.7, total bilirubin 1.5, AST 108, ALT 255, and alkaline phosphatase 453. Prior to the ERCP last week, her total bilirubin was up to 3.0, direct bilirubin 2.3, AST 150, ALT 244, and alkaline phosphatase 685. Her CT scan on this admission described some changes of some pancreatitis in the head of the pancreas with some fat stranding and a small amount of fluid. There were no definitive signs of mass nor metastatic disease. Her lipase was 126 yesterday and is 167 today. The highest her lipase has been in general even dating back to January was 163. She has had 2 normal CA19-9 levels. Previous IgG subtyping was normal. IMPRESSION: Given the patient's clinical history, her current issues are in relation to the underlying pancreatic cancer. I do not think this is related to the ERCP given that the symptoms have been going on for several months already. At this point, I advised her that clinically we need to keep her more comfortable at home with pain medication such that she can tolerate being home and managing some oral diet. I have already reviewed the diagnosis of the pancreatic cancer with her and we are in the midst of trying to get her an appointment at 1 of the centers in [place] to discuss treatment with potential Whipple procedure. This tends to hinge on her insurance. I advised her that hopefully we will be able to get her on some oral pain medication to allow her to be discharged by tomorrow. It does appear that her biliary stent is functioning well based on the improving laboratories and the most recent CT scan. I do not think any other intervention is required. This has all been discussed with her in detail. She is comfortable with this plan and understands the gravity of the situation. MD KEYONA Velazquez/JANE / [id number] MTDD
[2021-06-10] MEDS: Enoxaparin Sodium 40 MG/0.4 ML SYRINGE SUBCUT (15:54)
[2021-06-10] MEDS: Nicotine 21 MG PATCH.TD24 TRANSDERMA (16:51)
[2021-06-10] MEDS: QUEtiapine Fumarate 300 MG TABLET PO (20:30)
[2021-06-10] MEDS: 0.9 % Sodium Chloride Flush 3 ML SYRINGE IVFLUSH (20:31)
[2021-06-11] MEDS: HYDROmorphone HCl 1 MG/ML SYRINGE IVPUSH ×5 (00:33→15:35)
[2021-06-11] MEDS: Lactated Ringers 1,000 ML 150 ML IVCONT ×2 (03:31→09:18)
[2021-06-11 04:00] VITALS: BP 111/59; PULSE 62; RESP 18; TEMP 36.1; O2SAT 97
[2021-06-11 05:32] LABS: Hematocrit 35.9 % (37.0-47.0); Mean Corpuscular HGB Conc 33.4 g/dl (31.0-35.0); Mean Corpuscular Hemoglobin 30.6 pg (27.0-33.0); Mean Corpuscular Volume 91.6 fL (80.0-98.0); Mean Platelet Volume 10.6 fL (9.4-12.3); Platelet Count 300 X10*3/uL (160-400); Red Blood Count 3.92 X10*6/uL (4.20-5.50); Red Cell Distribution Width 14.7 % (11.0-16.0); White Blood Count 4.9 X10*3/uL (4.8-10.8)
[2021-06-11 05:57] LABS: Alanine Aminotransferase 201 U/L (0-31); Albumin Level 3.2 g/dL (3.5-5.0); Alkaline Phosphatase 363 U/L (39-117); Anion Gap 12 (12-20); Aspartate Amino Transferase 79 U/L (5-31); Bilirubin Direct 0.8 mg/dL (0.0-0.5); Bilirubin Total 1.2 mg/dL (0.0-1.0); Blood Urea Nitrogen 7 mg/dL (9-16); Calcium 9.2 mg/dL (8.4-10.2); Carbon Dioxide 27 mmol/L (22-29); Chloride 106 mmol/L (96-108); Creatinine Clr Calc Pharmacy 102.1; Estimated Glomerular Filt Rate > 60; Glucose Fasting 101 mg/dL (60-99); Lipase 124 U/L (8-78); Potassium 4.1 mmol/L (3.3-5.1); Sodium 141 mmol/L (135-145); Total Protein 5.5 g/dL (6.5-8.0)
[2021-06-11] MEDS: Omeprazole 20 MG CAPSULE.DR PO (06:02)
[2021-06-11 08:00] VITALS: BP 136/68; PULSE 56; RESP 18; TEMP 37.4; O2SAT 98
[2021-06-11] MEDS: Pyridoxine HCl (Vitamin B6) 50 MG TABLET 100 MG PO (09:16)
[2021-06-11] MEDS: Nicotine 21 MG PATCH.TD24 TRANSDERMA (09:17)
[2021-06-11] MEDS: Cholecalciferol (Vitamin D3) 25 MCG TABLET 50 MCG PO (09:17)
[2021-06-11] MEDS: QUEtiapine Fumarate 25 MG TABLET PO ×2 (09:17→15:36)
[2021-06-11 11:38] VITALS: BP 117/72; PULSE 68; RESP 18; TEMP 37.1; O2SAT 99
--- NOTE | 2021-06-11 12:51 | PM.DS ---
DS: Providers Provider Date of Service: 06/11/21 Date of admission: 06/09/21 16:37 Primary care physician: Tony Delong JOURNALISM PROFESSOR- Consults: 06/09/21 16:36 Consult to Gastroenterology Routine Consulting Provider: Miah Kendrick Reason for consultation: recurrent pancreatitis, s/p ercp stent, panc cancer DS: Diagnosis Discharge Diagnosis (1) Adenocarcinoma of pancreas: Status: Acute (2) Acute pancreatitis: Status: Acute DS: Summary Hospital Course Hospital Course: From HPI: chief Complaint: abd pain 51F with past medical history of recurrent pancreatitis, most recently discharged 06/04/2021 after ERCP and stent placement.? Pathology did come back positive for adenocarcinoma of the pancreas.? Patient initially felt well after stent placement.? However, 2 days prior to presentation she BN to feel familiar feeling of epigastric 10/10 pain radiating to back associated with decreased appetite, nausea, vomiting, inability to tolerate p.o..? In ED found to have pancreatitis on CT scan lipase of 126, was 33 at discharge. Summary of hospitalization: Patient was admitted for acute recurrent pancreatitis after recent ERCP and stent placement and recent diagnosis of adenocarcinoma of the pancreas. She was treated with IV hydration, pain medications. Diet was slowly advanced, she is now tolerating solids and will be discharged home. She will follow-[facility] with [facility] for further workup and treatment of her newly diagnosed pancreatic adenocarcinoma. Time Spent with Patient Time attestation: Total time spent providing and/or coordinating discharge services: Discharge coordination time: Greater than 30 minutes Quality: Stroke Does the patient have a stroke diagnosis?: No Physical Exam Vital Signs: Vital Signs: Last Vital Signs Temp 98.8 F 06/11/21 11:38 Pulse 68 06/11/21 11:38 Resp 18 06/11/21 11:38 BP 117/72 06/11/21 11:38 Pulse Ox 99 06/11/21 11:38 BMI result Body Mass Index 21.7 General: AO X 3, no acute distress Resp: CTA bilateral, no accessory muscles used CVS: S1,S2,RRR GI: soft, non tender, non distended Neuro: motor grossly intact, alert Psych: appropriate affect, appropriate insight DS: Data Data Completed and Pending Completed studies during hospitalization [Text1]: Procedures Dilation of Common Bile Duct with Intraluminal Device, Via Natural or Artificial Opening Endoscopic (05/30/21) Extraction of Common Bile Duct, Via Natural or Artificial Opening Endoscopic, Diagnostic (05/30/21) Labs on day of discharge: Laboratory Results - last 24 hr 06/11/21 06/11/21 05:00 05:00 WBC 4.9 RBC 3.92 L Hgb 12.0 Hct 35.9 L MCV 91.6 MCH 30.6 MCHC 33.4 RDW 14.7 Plt Count 300 MPV 10.6 Absolute Nucleated RBC 0.000 Nucleated RBC % (auto) 0.0 Sodium 141 Potassium 4.1 Chloride 106 Carbon Dioxide 27 Anion Gap 12 BUN 7 L Creatinine 0.61 Estim Creat Clear Calc 102.1 Estimated GFR > 60 Fasting Glucose 101 H Calcium 9.2 Total Bilirubin 1.2 H Direct Bilirubin 0.8 H AST 79 H ALT 201 H Alkaline Phosphatase 363 H Total Protein 5.5 L Albumin 3.2 L Lipase 124 H Discharge Plan Discharge Patient Disposition: Home, Self-Care Discharge Diagnosis: pacnreatitis Referrals: Tony Delong, JOURNALISM PROFESSOR-BC [Primary Care Provider] - 1 Week Discharge Medications: New oxycodone 10 mg tablet 10 mg PO Q4H PRN (Reason: moderate pain (scale score 5-6)) Qty: 20 RF: 0 Continued cholecalciferol (vitamin D3) 50 mcg (2,000 unit) tablet 50 mcg PO DAILY 90 Days Qty: 90 RF: 2 albuterol sulfate 90 mcg/actuation HFA aerosol inhaler 2 puff PO Q4H PRN (Reason: shortness of breath or wheezing) Qty: 8.5 RF: 8 quetiapine [Seroquel] 300 mg tablet 300 mg PO BEDTIME 90 Days Qty: 90 RF: 1 nicotine 14 mg/24 hr patch 24 hour 1 patch transdermal DAILY 28 Days Qty: 28 RF: 0 atorvastatin 20 mg tablet 20 mg PO BEDTIME 90 Days Qty: 90 RF: 0 omeprazole 20 mg capsule,delayed release(DR/EC) 20 mg PO DAILY@0630 90 Days Qty: 90 RF: 0 ondansetron HCl 4 mg tablet 4 mg PO Q6H PRN (Reason: Nausea And Vomiting) RF: 0 dicyclomine 10 mg capsule 1 - 2 cap PO QID PRN (Reason: Abdominal Discomfort) RF: 0 quetiapine 25 mg tablet 25 mg PO BID@1000,1500 RF: 0 pyridoxine (vitamin B6) 100 mg tablet 100 mg PO DAILY 90 Days Qty: 90 RF: 1 Discharge Orders: Discharge Order (Routine); Ordered 06/11/21 Ordered By: Valerio Sidhu Diet: low fat, low cholesterol Activity on Discharge: As tolerated Stand Alone Forms: Patient Portal Discharge page Care Plan Goals: manage pancreatits, work up pancreatic cancer Health Concerns: pancreatitis, pancreatic cancer Plan of Treatment: oxycodone and low fat diet, follow up mass gen Assessment: see above Discharge Date/Time: 06/11/21 17:15
--- NOTE | 2021-06-11 13:35 | MHC.CM.PN ---
PT WILL BE CLEARED FOR D/C TODAY LONG SHE IS TOLERATING REGULAR DIET, PT HAS APPT INFO FOR SPECIALIST IN [place] AND CD W/IMAGING, PT WILL CALL FAMILY FOR TRANSPORT.
[2021-06-11] MEDS: 0.9 % Sodium Chloride Flush 3 ML SYRINGE IVFLUSH (15:36)
== END 2021-06-11 17:15 | disposition home or self-care (01) | DRG 282 ==
LOC: HO.ED 14:06 → HO.EDOVER 16:47 → HO.S3 21:51
PROVIDERS: Physician Assistant; Admitting Provider Internal Medicine; Emergency Provider Emergency Medicine; PCP Nurse Practitioner Family; Visit Provider Internal Medicine
DX: K85.90 Acute pancreatitis without necrosis or infection, unspecified (principal); C25.0 Malignant neoplasm of head of pancreas; G89.3 Neoplasm related pain (acute) (chronic); F17.210 Nicotine dependence, cigarettes, uncomplicated; Z20.822 Contact with and (suspected) exposure to COVID-19; Z71.6 Tobacco abuse counseling; Z87.442 Personal history of urinary calculi; Z79.899 Other long term (current) drug therapy
CPT/HCPCS: 36415; 74177; 80048; 80076; 83690; 84484; 84702; 85025; 85027; 87635; 93005; 96361; 96374; 96375; 99285; J1170; J1650; J2270; J2405; Q9967

== ENCOUNTER 2021-07-30 07:34 | Emergency (ER) | payer MEDICARE, MEDICAID, SELFPAY ==
--- NOTE | ~2021-07-30 | CT_ITS ---
EXAMINATION: CT ABDOMEN AND PELVIS WITH CONTRAST CLINICAL INFORMATION: Epigastric pain. New diagnosis of pancreatic cancer. COMPARISON: 06/09/2021 TECHNIQUE: Multidetector volumetric images were obtained from the superior aspect of the liver through the pubic symphysis following administration 85 mL of Omnipaque 350 intravenous contrast. Sagittal and coronal reformatted images were obtained on the technologist's workstation. Oral contrast: No This CT examination was performed using dose optimization techniques as appropriate, variously including the following: *Automated exposure control *Adjustment of mA and/or kV according to patient size (this includes techniques or standardized protocols for targeted exams where dose is matched to indication/reason for exam; i.e. extremities or head) *Use of iterative reconstruction technique DLP: 316 mGy-cm FINDINGS: LUNG BASES: The visualized lung bases are unremarkable. LIVER, GALLBLADDER, AND BILIARY TREE: The liver is normal in size, shape, and attenuation. No focal hepatic lesion. There is diffuse pneumobilia. Common bile duct stent in place. Dilatation of the common hepatic duct measuring 1.1 cm. Increased pneumobilia from prior. The gallbladder is unremarkable with no evidence of radiopaque gallstones, gallbladder wall thickening, or obvious pericholecystic inflammatory changes. PANCREAS: As seen on prior there is fullness of the pancreatic head with inflammatory stranding surrounding the pancreatic head and neck. A discrete focal lesion is difficult to identify. Inflammatory stranding does abut the superior mesenteric artery and vein. These vessels are patent. No pancreatic ductal dilatation. The pancreatic body and tail appear unremarkable. SPLEEN: Unremarkable. ADRENAL GLANDS: Unremarkable. KIDNEYS AND URETERS: The kidneys are normal in size, shape, and attenuation. No hydronephrosis, hydroureter, or calculi seen. No perinephric stranding. Anterior right upper pole renal cyst again noted. BLADDER: Unremarkable. GASTROINTESTINAL TRACT: The stomach is unremarkable. Normal caliber small bowel. No obstruction. No colonic wall thickening or acute inflammation. No free air or free fluid. ABDOMINAL WALL: No significant hernia is appreciated. LYMPH NODES: Normal. VASCULAR: Normal caliber aorta. Mild atherosclerotic calcification. PELVIC VISCERA: Anteverted uterus. Heterogeneous area of attenuation and lobulation at the posterior body/fundus measuring 1.9 cm, likely a fibroid. No adnexal mass. OSSEOUS STRUCTURES: No acute or suspicious osseous abnormality. Mild degenerative changes of the spine. CT/CT abdomen pelvis w con IMPRESSION: Similar appearance of the pancreas. Fullness of the pancreatic head with surrounding inflammatory changes. Common bile duct stent in place with increasing pneumobilia. No new findings. Fleischner guidelines were followed.
--- NOTE | ~2021-07-30 | XR_ITS ---
EXAMINATION: XR CHEST CLINICAL INFORMATION: Confirm port placement COMPARISON: 01/24/2021 TECHNIQUE: Frontal view of the chest was obtained. FINDINGS: CT compatible right chest wall port terminates near the cavoatrial junction. The lungs are well expanded. There is no focal consolidation, edema, or effusion. No pneumothorax. The cardiomediastinal silhouette is within normal limits. No acute osseous abnormality. XR/XR chest 1V IMPRESSION: Right chest wall port terminates near the cavoatrial junction.
[2021-07-30 07:40] VITALS: BP 122/86; PULSE 90; RESP 18; TEMP 36.6; O2SAT 98; BMI 22.7
--- NOTE | 2021-07-30 08:00 | ED.GENADULT ---
HPI - General Adult General Chief complaint: Nausea/Vomiting/Diarrhea Stated complaint: vomiting Time Seen by Provider: 07/30/21 07:43 Source: patient Mode of arrival: ambulatory Limitations: no limitations History of Present Illness HPI narrative: Patient comes to the emergency room complaining of vomiting for the last 48 hours. Patient states that she is not able to keep anything down, including her pain medications. On May of 2021, patient had an ERCP and stent placement for recurrent pancreatitis, a biopsy was done which was positive for adenocarcinoma of pancreas. Patient started chemotherapy with Folfirinox at [facility] last week. This was her 1st round. Patient is due for another chemotherapy session next week. Patient denies fever, no diarrhea. Patient complaining of abdominal pain. Related Data Home Medications Medication Instructions Recorded Confirmed dicyclomine 10 mg capsule 1 - 2 cap PO QID PRN 05/30/21 06/29/21 morphine 30 mg tablet,extended 30 mg PO BID PRN 06/29/21 06/29/21 release Previous Rx's Medication Instructions Recorded pyridoxine (vitamin B6) 100 mg 100 mg PO DAILY 90 Days #90 tab 04/29/21 tablet albuterol sulfate 90 mcg/actuation 2 puff PO Q4H PRN #8.5 g 06/17/21 aerosol inhaler atorvastatin 20 mg tablet 20 mg PO BEDTIME 90 Days #90 tab 06/17/21 cholecalciferol (vitamin D3) 50 50 mcg PO DAILY 90 Days #90 tab 06/17/21 mcg (2,000 unit) tablet nicotine 14 mg/24 hr daily 1 patch TRANSDERMAL DAILY 28 Days 06/17/21 transdermal patch #28 ea omeprazole 20 mg capsule,delayed 20 mg PO DAILY@0630 90 Days #90 cap 06/17/21 release ondansetron HCl 4 mg tablet 4 mg PO Q6H PRN 14 Days #56 tab 06/17/21 quetiapine 25 mg tablet 25 mg PO BID@1000,1500 90 Days 06/17/21 #180 tab quetiapine 300 mg tablet (Seroquel) 300 mg PO BEDTIME 90 Days #90 tab 06/17/21 oxycodone 10 mg tablet 10 mg PO BID PRN 10 Days #20 tab 07/15/21 prochlorperazine 25 mg rectal 25 mg VT BID PRN #12 ea 07/30/21 suppository (Compazine) Allergies Allergy/AdvReac Type Severity Reaction Status Date / Time No Known Allergies Allergy Verified 06/29/21 17:18 [No Known Allergies*] Review of Systems Review of Systems: Constitutional : No Weight loss, No Fever, No Chills, No Night Sweats, complaining of general malaise ENT/Mouth : No Hearing loss, No Ear Pain, No Nasal Congestion, No Sinus Pain, No Hoarseness, No sore throat, No Rhinorrhea, No Swallowing Difficulty Eyes: No Eye Pain, No Swelling, No Redness, No Foreign Body, No Discharge, No Vision Changes Cardiovascular : No Chest Pain, No SOB, No Dyspnea on Exertion, No Orthopnea, No Edema, No Palpitations Respiratory : No Cough, No Sputum, No Wheezing, No Smoke Exposure, No Dyspnea Gastrointestinal : Complaining of nausea and vomiting, No Diarrhea, No Constipation, complaining of epigastric pain, No Hematochezia, No Melena Genitourinary : no irregular bleeding, No Dysuria, No Urinary Frequency, No Hematuria, No Urinary Incontinence, No Urgency, No Flank Pain, No Urinary Flow Changes, No Hesitancy Musculoskeletal : No joint pain, No Myalgias, No Joint Swelling Skin : No Skin Lesions, No rash Neuro : No Weakness, No Numbness, No Paresthesias, No Loss of Consciousness, No Dizziness, No Headache Psych : No Anxiety/Panic, No Depression, No SI/HI/AH/VH, No Social Issues, Heme/Lymph: No Bruising, No Bleeding,No Lymphadenopathy Endocrine : No Polyuria, No Polydipsia, No Temperature Intolerance [facility] Past Medical History Medical History Adenocarcinoma of pancreas Encounter for screening colonoscopy Kidney stones Microscopic hematuria Right thyroid nodule Screening for colon cancer Family History Family History Father Pancreatic cancer Mother Pancreatic cancer Social History Social History Household Members: Children Housing: Apartment Do you presently have visiting nurse or other home services: No Alcohol intake: never Patient Tobacco Use Status: Current everyday Tobacco user Tobacco use type: Cigarette Cigarettes Per Day: 2 Second Hand Smoke Exposure: No Substance Use Type: Marijuana Advance Directives: Yes Advance Directives on File: Yes Advance Directives Date on File: 01/24/21 service: No Current occupational status: unemployed 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 Oriented X3. Looks very uncomfortable Eyes: Pupils equal, round and reactive to light. ENT: Pharynx normal. Neck: Normal inspection. Neck supple. No lymph nodes noted. No crepitus CVS: Normal heart rate and rhythm. Pulses normal. Normal S1 and S2 Respiratory: No respiratory distress. Breath sounds normal. No Wheezing. No rales Abdomen: Soft , tenderness to palpation in epigastric area. Skin: Skin warm and dry. Normal skin color. Normal skin turgor. Extremities: No lower extremity edema. No Lacerations. No Rash Neuro: Oriented X 3. No motor deficit. No sensory deficit. Moving all extermities. No slurred speech. Course Course Course Narrative: Patient is receiving IV fluids, nausea medication and pain medication. Labs and CT scan pending. At this time, sepsis is not suspected. No acute findings on labs or CT scan. Overall patient is feeling better. I discussed with the patient that we will send her home, patient will be sent home with VT medication. Medical Decision Making Lab Data Result diagrams: 07/30/21 08:53 07/30/21 08:53 Labs: Lab Results 07/30/21 07/30/21 07/30/21 Range/Units 08:53 08:53 08:58 WBC 4.9 (4.8-10.8) X10*3/uL RBC 5.12 D (4.20-5.50) X10*6/uL Hgb 15.1 D (12.0-16.0) g/dl Hct 44.4 D (37.0-47.0) % MCV 86.7 (80.0-98.0) fL MCH 29.5 (27.0-33.0) pg MCHC 34.0 (31.0-35.0) g/dl RDW 12.6 (11.0-16.0) % Plt Count 156 L D (160-400) X10*3/uL MPV 10.8 (9.4-12.3) fL Immature Gran % (Auto) 0.8 H (0.0-0.4) % Neut % (Auto) 59.7 (45-73) % Lymph % (Auto) 21.5 (20-40) % Morrison % (Auto) 16.8 H (2-11) % Eos % (Auto) 0.8 (0-4) % Baso % (Auto) 0.4 (0-2) % Lymph # (Auto) 1.1 L (1.2-4.9) X10*3/uL Morrison # (Auto) 0.8 (0.1-1.2) X10*3/uL Eos # (Auto) 0.0 (0.0-0.4) X10*3/uL Baso # (Auto) 0.0 (0.0-0.2) X10*3/uL Abs Immat Gran (auto) 0.04 H (0.00-0.03) X10*3/uL Absolute Neuts (auto) 3.0 (2.0-8.3) x10*3/uL Absolute Nucleated RBC 0.000 (0.0-0.012) X10*3/uL Nucleated RBC % (auto) 0.0 (0.0-0.2) /100WBC Sodium 138 (135-145) mmol/L Potassium 3.8 (3.3-5.1) mmol/L Chloride 100 (96-108) mmol/L Carbon Dioxide 28 (22-29) mmol/L Anion Gap 14 (12-20) BUN 15 D (9-16) mg/dL Creatinine 0.79 (0.5-1.4) mg/dL Estim Creat Clear Calc 81.9 Estimated GFR > 60 Random Glucose 119 H (60-115) mg/dL Lactic Acid 1.1 (0.5-2.0) mmol/L Uric Acid 4.0 (2.4-5.7) mg/dL Calcium 9.6 (8.4-10.2) mg/dL Magnesium 2.3 (1.6-2.6) mg/dL Total Bilirubin 0.6 (0.0-1.0) mg/dL Direct Bilirubin 0.2 (0.0-0.5) mg/dL AST 20 D (5-31) U/L ALT 44 H (0-31) U/L Alkaline Phosphatase 207 H D (39-117) U/L Total Protein 6.8 D (6.5-8.0) g/dL Albumin 4.2 D (3.5-5.0) g/dL Lipase 22 (8-78) U/L COVID-19 ([facility]) (Negative) COVID-19 Clin Com 07/30/21 Range/Units 08:58 WBC (4.8-10.8) X10*3/uL RBC (4.20-5.50) X10*6/uL Hgb (12.0-16.0) g/dl Hct (37.0-47.0) % MCV (80.0-98.0) fL MCH (27.0-33.0) pg MCHC (31.0-35.0) g/dl RDW (11.0-16.0) % Plt Count (160-400) X10*3/uL MPV (9.4-12.3) fL Immature Gran % (Auto) (0.0-0.4) % Neut % (Auto) (45-73) % Lymph % (Auto) (20-40) % Morrison % (Auto) (2-11) % Eos % (Auto) (0-4) % Baso % (Auto) (0-2) % Lymph # (Auto) (1.2-4.9) X10*3/uL Morrison # (Auto) (0.1-1.2) X10*3/uL Eos # (Auto) (0.0-0.4) X10*3/uL Baso # (Auto) (0.0-0.2) X10*3/uL Abs Immat Gran (auto) (0.00-0.03) X10*3/uL Absolute Neuts (auto) (2.0-8.3) x10*3/uL Absolute Nucleated RBC (0.0-0.012) X10*3/uL Nucleated RBC % (auto) (0.0-0.2) /100WBC Sodium (135-145) mmol/L Potassium (3.3-5.1) mmol/L Chloride (96-108) mmol/L Carbon Dioxide (22-29) mmol/L Anion Gap (12-20) BUN (9-16) mg/dL Creatinine (0.5-1.4) mg/dL Estim Creat Clear Calc Estimated GFR Random Glucose (60-115) mg/dL Lactic Acid (0.5-2.0) mmol/L Uric Acid (2.4-5.7) mg/dL Calcium (8.4-10.2) mg/dL Magnesium (1.6-2.6) mg/dL Total Bilirubin (0.0-1.0) mg/dL Direct Bilirubin (0.0-0.5) mg/dL AST (5-31) U/L ALT (0-31) U/L Alkaline Phosphatase (39-117) U/L Total Protein (6.5-8.0) g/dL Albumin (3.5-5.0) g/dL Lipase (8-78) U/L COVID-19 ([facility]) Negative (Negative) COVID-19 Clin Com See Note Imaging Data CT scan - abdomen: Radiologist's impression: FINDINGS: LUNG BASES: The visualized lung bases are unremarkable.? LIVER, GALLBLADDER, AND BILIARY TREE: The liver is normal in size, shape, and attenuation. No focal hepatic lesion. There is diffuse pneumobilia. Common bile duct stent in place. Dilatation of the common hepatic duct measuring 1.1 cm. Increased pneumobilia from prior. The gallbladder is unremarkable with no evidence of radiopaque gallstones, gallbladder wall thickening, or obvious pericholecystic inflammatory changes.? PANCREAS: As seen on prior there is fullness of the pancreatic head with inflammatory stranding surrounding the pancreatic head and neck. A discrete focal lesion is difficult to identify. Inflammatory stranding does abut the superior mesenteric artery and vein. These vessels are patent. No pancreatic ductal dilatation. The pancreatic body and tail appear unremarkable.? SPLEEN: Unremarkable.? ADRENAL GLANDS: Unremarkable.? KIDNEYS AND URETERS: The kidneys are normal in size, shape, and attenuation. No hydronephrosis, hydroureter, or calculi seen. No perinephric stranding. Anterior right upper pole renal cyst again noted.? BLADDER: Unremarkable.? GASTROINTESTINAL TRACT: The stomach is unremarkable. Normal caliber small bowel. No obstruction. No colonic wall thickening or acute inflammation. No free air or free fluid. ABDOMINAL WALL: No significant hernia is appreciated.? LYMPH NODES: Normal. VASCULAR: Normal caliber aorta. Mild atherosclerotic calcification. PELVIC VISCERA: Anteverted uterus. Heterogeneous area of attenuation and lobulation at the posterior body/fundus measuring 1.9 cm, likely a fibroid. No adnexal mass. OSSEOUS STRUCTURES: No acute or suspicious osseous abnormality. Mild degenerative changes of the spine.? CT/CT abdomen pelvis w con IMPRESSION: Similar appearance of the pancreas. Fullness of the pancreatic head with surrounding inflammatory changes. Common bile duct stent in place with increasing pneumobilia. ? No new findings.? ? Fleischner guidelines were followed. Discharge Plan Discharge Clinical Impression: Nausea and vomiting Patient Disposition: Home, Self-Care Instructions: Acute Nausea and Vomiting (ED) Additional Instructions: Please follow-up with your primary care physician tomorrow. If you have any worsening or new symptoms, please return to the emergency room or call 911 Prescriptions: New prochlorperazine [Compazine] 25 mg suppository 25 mg VT BID PRN (Reason: nausea and vomiting) Qty: 12 1RF No Action cholecalciferol (vitamin D3) 50 mcg (2,000 unit) tablet 50 mcg PO DAILY 90 Days Qty: 90 2RF albuterol sulfate 90 mcg/actuation HFA aerosol inhaler 2 puff PO Q4H PRN (Reason: shortness of breath or wheezing) Qty: 8.5 8RF quetiapine [Seroquel] 300 mg tablet 300 mg PO BEDTIME 90 Days Qty: 90 1RF omeprazole 20 mg capsule,delayed release(DR/EC) 20 mg PO DAILY@0630 90 Days Qty: 90 0RF nicotine 14 mg/24 hr patch 24 hour 1 patch transdermal DAILY 28 Days Qty: 28 0RF atorvastatin 20 mg tablet 20 mg PO BEDTIME 90 Days Qty: 90 0RF ondansetron HCl 4 mg tablet 4 mg PO Q6H PRN (Reason: Nausea And Vomiting) 14 Days Qty: 56 0RF quetiapine 25 mg tablet 25 mg PO BID@1000,1500 90 Days Qty: 180 0RF oxycodone 10 mg tablet 10 mg PO BID PRN (Reason: moderate pain (scale score 5-6)) 10 Days Qty: 20 0RF Rx Instructions: not to be taken at thesame time as morphine dicyclomine 10 mg capsule 1 - 2 cap PO QID PRN (Reason: Abdominal Discomfort) 0RF morphine 30 mg tablet extended release 30 mg PO BID PRN0RF pyridoxine (vitamin B6) 100 mg tablet 100 mg PO DAILY 90 Days Qty: 90 1RF
[2021-07-30] MEDS: Morphine Sulfate 4 MG/ML CARTRIDGE IVPUSH (08:33)
[2021-07-30] MEDS: 0.9 % Sodium Chloride 1,000 ML 999 ML IVCONT (08:34)
[2021-07-30] MEDS: ondansetron HCL 4 MG/2 ML VIAL IVPUSH (08:34)
[2021-07-30 09:00] LABS: MANUAL DIFF FLAG NO
[2021-07-30 09:12] LABS: Basophils Percent Auto 0.4 % (0-2); Eosinophils Percent Auto 0.8 % (0-4); Hematocrit 44.4 % (37.0-47.0); Hemoglobin 15.1 g/dl (12.0-16.0); Imm Gran Abs Auto 0.04 X10*3/uL (0.00-0.03); Imm Gran Pct Auto 0.8 % (0.0-0.4); Lymphocytes Absolute Auto 1.1 X10*3/uL (1.2-4.9); Lymphocytes Percent Auto 21.5 % (20-40); Mean Corpuscular Hemoglobin 29.5 pg (27.0-33.0); Mean Corpuscular Volume 86.7 fL (80.0-98.0); Mean Platelet Volume 10.8 fL (9.4-12.3); Monocytes Absolute Auto 0.8 X10*3/uL (0.1-1.2); Monocytes Percent Auto 16.8 % (2-11); Neutrophils Percent Auto 59.7 % (45-73); Platelet Count 156 X10*3/uL (160-400); Red Blood Count 5.12 X10*6/uL (4.20-5.50); Red Cell Distribution Width 12.6 % (11.0-16.0); White Blood Count 4.9 X10*3/uL (4.8-10.8)
[2021-07-30 09:21] LABS: Alanine Aminotransferase 44 U/L (0-31); Albumin Level 4.2 g/dL (3.5-5.0); Alkaline Phosphatase 207 U/L (39-117); Anion Gap 14 (12-20); Aspartate Amino Transferase 20 U/L (5-31); Bilirubin Direct 0.2 mg/dL (0.0-0.5); Bilirubin Total 0.6 mg/dL (0.0-1.0); Blood Urea Nitrogen 15 mg/dL (9-16); Calcium 9.6 mg/dL (8.4-10.2); Carbon Dioxide 28 mmol/L (22-29); Chloride 100 mmol/L (96-108); Creatinine Clr Calc Pharmacy 81.9; Estimated Glomerular Filt Rate > 60; Glucose Random 119 mg/dL (60-115); Lipase 22 U/L (8-78); Magnesium 2.3 mg/dL (1.6-2.6); Potassium 3.8 mmol/L (3.3-5.1); Sodium 138 mmol/L (135-145); Total Protein 6.8 g/dL (6.5-8.0)
[2021-07-30 09:30] LABS: Lactic Acid 1.1 mmol/L (0.5-2.0)
[2021-07-30 09:31] LABS: COVID-19 Test Negative (Negative); IDNOW Serial# 55D5AD1C
--- NOTE | 2021-07-30 10:10 | PC.NURSE ---
pt tolerating po challenge well. eating ice chips and reports she no longer has nausea.
[2021-07-30] MEDS: iohexoL 350 MG/ML 100 ML INFUS..BTL 85 ML IV (10:14)
[2021-07-30 10:52] VITALS: BP 119/65; RESP 14; O2SAT 99
[2021-07-30 12:14] VITALS: BP 121/56; PULSE 67; RESP 16; TEMP 36.6; O2SAT 98
== END 2021-07-30 12:26 | disposition home or self-care (01) ==
PROVIDERS: Emergency Provider Emergency Medicine; PCP Nurse Practitioner Family
DX: R11.2 Nausea with vomiting, unspecified (principal); C25.9 Malignant neoplasm of pancreas, unspecified; Z20.822 Contact with and (suspected) exposure to COVID-19
CPT/HCPCS: 71045; 74177; 80048; 80076; 83605; 83690; 83735; 84550; 85025; 87040; 87635; 96361; 96374; 96375; 99284; J1642; J2270; J2405; Q9967

== ENCOUNTER 2022-11-11 15:05 | Outpatient (REF) | payer MEDICARE, MEDICAID, SELFPAY ==
--- NOTE | ~2022-11-11 | MM_ITS ---
EXAMINATION: MM SCREENING DIGITAL BREAST TOMOSYNTHESIS, BILATERAL CLINICAL INFORMATION: Screening. Asymptomatic. The lifetime risk of breast cancer based on the Tyrer-Cuzick Model is 6%. COMPARISON: Mammography: 01/28/2018, 07/17/2014, 04/12/2012 TECHNIQUE: Digital breast tomosynthesis is performed in both the craniocaudal and mediolateral oblique views along with computer-aided detection (CAD). Synthesized 2D images are generated from the tomosynthesis. FINDINGS: There are scattered areas of fibroglandular density (ACR BI-RADS breast composition Category b). There are no significant masses, abnormal calcifications, or other abnormalities. No architectural abnormality or developing density or significant change from prior studies. The axilla and skin contours are unremarkable. MM/MM tomosynthesis screening BI IMPRESSION: No mammographic evidence of malignancy. ASSESSMENT: BI-RADS 1: Negative RECOMMENDATION: Routine annual mammography screening. This patient's information was entered into a reminder system with a target due date for their next mammogram.
== END 2022-11-11 15:06 | disposition home or self-care (01) ==
LOC: HO.MAMMO 15:05
PROVIDERS: PCP Nurse Practitioner Family; Visit Provider Nurse Practitioner Family
DX: Z12.31 Encounter for screening mammogram for malignant neoplasm of breast (principal)
CPT/HCPCS: 77063; 77067

== ENCOUNTER 2023-05-20 10:39 | Outpatient (REF) | payer MEDICARE, SELFPAY ==
[2023-05-23 00:19] LABS: TS Negative Control Passed; TS Panel A 1; TS Panel B 0; TS Positive Control Passed; TSpotTB Negative (Negative)
== END 2023-05-20 10:40 | disposition home or self-care (01) ==
LOC: HO.HMGCLDS 10:39
PROVIDERS: PCP Nurse Practitioner Family; Visit Provider Nurse Practitioner Family
DX: Z11.1 Encounter for screening for respiratory tuberculosis (principal)
CPT/HCPCS: 36415; 86481

== ENCOUNTER 2023-05-24 11:43 | Outpatient (AMB) | payer MEDICARE, SELFPAY ==
--- NOTE | 2023-05-24 14:49 | AM.OFFWIN_ITS ---
Intake Vital Signs 05/24/23 14:50 Height 5 ft 6 in BP 116/72 Blood Pressure Location Rt brachial Position Sitting Pulse 75 Pulse Source Pulse Oximeter Temp 98.2 F Temp Source Temporal Artery Scan Pulse Oximetry (%) 98 Oxygen Delivery Method Room Air Intake Visit Reasons: EP, congestion, cough, body aches (masked) Intake Note: pt is here for c/o congestion, cough, body aches Patient Tobacco Use Status: Current everyday Tobacco user Allergies No Known Allergies [No Known Allergies*] Allergy (Verified 05/24/23 14:50) Do you need a note to return to daycare/school/sports/work: Yes HPI HPI Comments History of Present Illness Details Patient is a 53-year-old female in today for a sick visit. She states that for the past several days she has developed symptoms of cough, headache, chest tightness, which have interrupted her ability to sleep and rest. She has a past medical history significant for pancreatic cancer which is currently in remission. She has taken some [id number] medication with little relief. She states that she has been around several family members who recently tested positive for COVID. She denies dizziness, chest pain, shortness a breath, nausea, vomiting, diarrhea. [facility] Medical History (Updated 05/24/23 @ 15:30 by JACQUELINE Ramirez) Adenocarcinoma of pancreas Right thyroid nodule Encounter for screening colonoscopy Screening for colon cancer Microscopic hematuria Kidney stones Surgical History (Updated 10/14/22 @ 13:32 by Westley Shane CMA) H/O Whipple procedure Family History Father Pancreatic cancer Mother Pancreatic cancer Social History Household Members: Children Housing: Apartment Do you presently have visiting nurse or other home services: No Alcohol intake: never Patient Tobacco Use Status: Current everyday Tobacco user Tobacco use type: Cigarette Cigarettes Per Day: 2 Second Hand Smoke Exposure: No Substance Use Type: Marijuana Advance Directives Date on File: 01/24/21 service: No Current occupational status: unemployed 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 Review of Systems Const Details: Constitutional : No Weight loss, No Fever, No Chills, Admits Fatigue, No Malaise ENT/Mouth : Admits sore throat, No Rhinorrhea Eyes: No Eye Pain, No Swelling, No Redness Cardiovascular : No Chest Pain, No SOB, No Dyspnea on Exertion, No Orthopnea, No Edema, No Palpitations Respiratory : Admits Cough, No Sputum, No Wheezing Gastrointestinal : No Nausea, No Vomiting, No Diarrhea, No Constipation, No abdominal Pain, No Hematochezia, No Melena Neuro : No Weakness, No Numbness, No Dizziness, No Headache Psych : No Anxiety/Panic, No Depression Heme/Lymph: No Bruising, No Bleeding,No Lymphadenopathy Endocrine : No Polyuria, No Polydipsia All other systems reviewed and are negative Physical Exam Vital Signs: Last Vital Signs Temp 98.2 F 05/24/23 14:50 Pulse 75 05/24/23 14:50 BP 116/72 05/24/23 14:50 Pulse Ox 98 05/24/23 14:50 Oxygen Delivery Method Room Air 05/24/23 14:50 Vital signs have been reviewed are stable Const Other: Appearance: Alert.? Oriented X3.? No acute distress.? Eyes: Pupils equal, round and reactive to light.? ENT: Pharynx normal. TM intact, pearlly abel. ? Neck: Normal inspection.? Neck supple.? CVS: Normal heart rate and rhythm.? Pulses normal.? Respiratory: No respiratory distress.? Bilateral upper lobe wheeze. ? Skin: Skin warm and dry.? Normal skin color.? Normal skin turgor.? Neuro: Oriented X 3.? No motor deficit.? No sensory deficit. CN 2-12 intact Results Reviewed Results Reviewed: Will call patient with swab results. Assessment & Plan Assessment & Plan (1) Upper respiratory tract infection: Comment: Patient will be given prednisone, she will have her albuterol inhaler refilled, and will be given benzonatate for cough. She has been directed and how to take his medications appropriately and common side effects. She is agreeable to this plan. Code(s): J06.9 - Acute upper respiratory infection, unspecified Qualifiers: URI type: unspecified URI Qualified Code(s): J06.9 - Acute upper respiratory infection, unspecified Plan: Patient should follow-up with PCP Plan Take your medications as prescribed. If you were prescribed antibiotics today, it is important that you take your medication to their entirety, do not skip any doses, do not finish them early. Follow-up with your primary care provider this week. Return to the emergency department with new or worsening symptoms. Such as fever s, chills, chest pain, shortness of breath, nausea, vomiting, dizziness, headache, vision changes, lethargy In case of emergency call 911 Orders: Orders SARS-CoV2/FLU/RSV 05/25/23 J06.9 - Acute upper respiratory infection, unspecified Medications: New prednisone 20 mg PO DAILY 5 tabs 0RF benzonatate 100 mg PO BID PRN 30 caps 0RF cough Changed From albuterol sulfate 90 mcg/actuation 2 puffs PO Q4H PRN 8.5 grams 8RF shortness of breath or wheezing To albuterol sulfate 90 mcg/actuation 2 puffs PO Q4H PRN 8.5 grams 8RF shortness of breath or wheezing Coding Level of Care Code Est Pt Level 3 (24889) Diagnoses Upper respiratory tract infection, unspecified type J06.9 URI type: unspecified URI
[2023-05-24 14:50] VITALS: BP 116/72; PULSE 75; TEMP 36.8; O2SAT 98
== END 2023-05-24 16:31 | disposition home or self-care (01) ==
PROVIDERS: PCP Nurse Practitioner Family; Visit Provider Nurse Practitioner Primary Care
DX: J06.9 Acute upper respiratory infection, unspecified (principal)
CPT/HCPCS: 99213

== ENCOUNTER 2023-05-24 15:14 | Outpatient (REF) | payer MEDICARE, SELFPAY ==
[2023-05-25 10:09] LABS: Influenza A PCR NEGATIVE (Negative); Influenza B PCR NEGATIVE (Negative); Resp Syncy Virus RNA Qual PCR POSITIVE (Negative); SARS COV2 PCR INHOUSE NEGATIVE (Negative)
== END 2023-05-24 15:15 | disposition home or self-care (01) ==
LOC: HO.LAB 15:14
PROVIDERS: Visit Provider Nurse Practitioner Primary Care
DX: J06.9 Acute upper respiratory infection, unspecified (principal); Z11.52 Encounter for screening for COVID-19; Z20.828 Contact with and (suspected) exposure to other viral communicable diseases
CPT/HCPCS: 0241U

== ENCOUNTER 2023-10-19 13:29 | Outpatient (AMB) | payer MEDICARE, MEDICAID, SELFPAY ==
[2023-10-19 13:31] VITALS: BP 120/84; PULSE 72; O2SAT 98; BMI 18.5
--- NOTE | 2023-10-19 13:32 | A.OFFVIS_ITS ---
Intake Vital Signs 10/19/23 13:31 Height 5 ft 6 in Weight 114 lb 6 oz BMI 18.5 BP 120/84 Blood Pressure Location Rt brachial Position Sitting Pulse 72 Pulse Source Pulse Oximeter Pulse Oximetry (%) 98 Oxygen Delivery Method Room Air Intake Visit Reasons: AWV last 10/14/22 Allergies No Known Allergies [No Known Allergies*] Allergy (Verified 10/19/23 13:48) Medication List - Last Reconciled 10/19/23 by ANDRE Vora albuterol sulfate 90 mcg/actuation 2 puffs PO Q4H PRN benzonatate 100 mg PO BID PRN lorazepam 0.5 mg PO DAILY PRN 30 days nicotine 1 patch transdermal DAILY 28 days prednisone 20 mg PO DAILY quetiapine 25 mg PO BID@1000,1500 90 days quetiapine (Seroquel) 300 mg PO BEDTIME 90 days HPI AWV last 10/14/22 HPI Details Pt is here for an AWV. Denies fever, chills, and dizziness. Lucinda of care in scan pile. PPP will be scanned in chart and copy will be given to pt. 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 Pt has been a smoker since age [age], up to a pack a day, will refer for LDCT. [facility] Medical History Adenocarcinoma of pancreas Right thyroid nodule Encounter for screening colonoscopy Screening for colon cancer Microscopic hematuria Kidney stones Surgical History H/O Whipple procedure Family History Father Pancreatic cancer Mother Pancreatic cancer Social History Household Members: Children Housing: Apartment Do you presently have visiting nurse or other home services: No Alcohol intake: never Patient Tobacco Use Status: Current everyday Tobacco user Tobacco use type: Cigarette Cigarettes Per Day: 2 Second Hand Smoke Exposure: No Substance Use Type: Marijuana Advance Directives Date on File: 01/24/21 service: No Current occupational status: unemployed 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 Questionnaire Medicare Wellness Checkup What gender do you identify with?: female During the past 4 weeks, how much have you been bothered by emotional problems such as feeling anxious, depressed, irritable, sad or downhearted, and blue?: not at all During the past 4 weeks, has your physical & emotional health limited your social activities with family, friends, neighbors, or groups?: not at all During the past 4 weeks, how much bodily pain have you generally had?: no pain During the past 4 weeks, was someone available to help you if you needed & wanted help?: yes, as much as I wanted During the past 4 weeks, what was the hardest physical activity you could do for at least 2 minutes?: moderate Can you get to places out of walking distance without help? (For eg., can you travel alone on buses, taxis or drive your car?): Yes Can you go shopping for groceries or clothes without someone's help?: No Can you prepare your own meals?: Yes Can you do your housework without help?: No Because of any health problems, do you need the help of another person with your personal care needs such as eating, bathing, dressing or getting around the h ouse?: No Can you handle your own money without help?: Yes During the past 4 weeks, how would you rate your health in general?: excellent During the past 4 weeks how have things been going for you?: very well; could hardly better Are you having difficulties driving your car?: no Do you always fasten your seat belt when you are in a car?: yes, usually During past 4 weeks, have you been bothered by the following: always: Trouble eating well? Have you fallen 2 or more times in the past year?: Yes Are you afraid of falling?: Yes Are you a smoker?: no During the past 4 weeks, how many drinks of wine, beer, or other alcoholic beverages did you have?: no alcohol at all Do you exercise for about 20 minutes 3 or more times a week?: yes, most of the time Have you been given information to help with the following?: yes: Hazards in your house that might hurt you? and yes: Keeping track of your medications? How often do you have trouble taking medicines the way you have been told to take them?: I do not have to take medicine How confident are you that you can control & manage most of your health problems?: very confident What is your race?: or origin or descent Mini Mental State Exam (MMSE) Orientation What is the (year) (season) (date) (day) (month)?: year, season, date, day and month Where are we (state) (county) (town or city) (hospital) (floor)?: state, county, town or city, hospital/clinic and floor Registration Name of 3 unrelated objects clearly and slowly, then ask patient to repeat all 3 of them. (1st repeat determines score. Make sure they can repeat all three): object 1, object 2 and object 3 Attention & Calculation (CHOOSE ONE) Spell WORLD backwards (DLROW): 5 letters Recall Ask patient to repeat the 3 items from question #3.: object 1, object 2 and object 3 Language Show patient a wristwatch & ask what it is. Repeat for pencil.: watch and pencil Ask the patient to repeat the phrase 'No ifs, ands, or buts' after you.: correct Ask the patient to 'take a piece of paper with their right hand' 'fold paper in half' 'place paper on floor': take paper in right hand, fold paper in half and place paper on floor Print the sentence 'CLOSE YOUR EYES' on a piece. If patient actually closes eyes then score.: followed written direction Give patient a blank piece of paper & ask to write a sentence. Score if it contains a noun & verb.: sentence contains subject and verb Ask patient to copy figure of intersecting pentagons exactly. Score if all 10 angles & 2 intersects are included.: all 10 angles present & 2 are intersected Score Score: 30 Activity of Daily Living Bathing - sponge bath, tub bath or shower: receives no assistance (gets in/out by self, if usual bathing means Dressing - getting clothes from closets & drawers, including inner/outer garments & fasteners.: gets clothes & gets completely dressed without help Toileting - going to the 'toilet room' for urine/bowel elimination & cleaning self/arranging clothes: goes to toilet room, cleans self, arranges clothes without help Transfer: moves in & out of bed and chair without help (may use support object) Continence: controls urination/bowel movements completely by self Feeding: feeds self without help Total Score: 0 Information obtained from: patient Using telephone: independent Traveling: independent Shopping: independent Preparing meals: independent Housework: independent Taking medicine: independent Managing money: independent PHQ-9 Over the last 2 weeks, how often have you been bothered by any of the following problems? 1. Little interest or pleasure in doing things: not at all 2. Feeling down, depressed, or hopeless: not at all 3. Trouble falling or staying asleep, or sleeping too much: not at all 4. Feeling tired or having little energy: not at all 5. Poor appetite or overeating: nearly every day 6. Feeling bad about yourself - or that you are a failure or have let yourself or your family down: not at all 7. Trouble concentrating on things, such as reading the newspaper or watching television: not at all 8. Moving or speaking so slowly that other people could have noticed. Or the opposite - being so fidgety or restless that you have been moving around a lot more than usual: not at all 9. Thoughts that you would be better off or of hurting yourself in some way: not at all Total score: 3 Depression Screening Interpretation: Negative Depression Screening Done: Yes 31899 - PHQ-9 Billing: Yes Source: Developed by Drs. Miah Woody, Danielle Wen, Shaheen Adame and colleagues, with an educational myah from [employer]. Thrive Questionnaire Date Thrive assessed: 10/19/23 I am a: Patient What is your living situation today?: I have a steady place to live Within the past 12 months, did the food you bought not last and you didn't have the money to get more?: Often true Do you have trouble paying for medicines?: Yes Do you have trouble getting transportation to medical appointments?: No Do you have trouble paying your heating and electricity bill?: No Do you have trouble taking care of your child, family member or friend?: No Do you have trouble with day-to-day activities such as bathing, preparing meals, shopping, managing finances, etc.?: No Are you currently unemployed and looking for a job?: No Are you interested in more education?: No THRIVE Score: 1 Review of Systems Const Reports as per HPI Physical Exam Vital Signs: Last Vital Signs Pulse 72 10/19/23 13:31 BP 120/84 10/19/23 13:31 Pulse Ox 98 10/19/23 13:31 Oxygen Delivery Method Room Air 10/19/23 13:31 BMI result Body Mass Index 18.5 Const General: cooperative Orientation/consciousness: patient oriented x3 Resp Effort & Inspection: normal respiratory effort Auscultation: clear to auscultation bilaterally Cardio Rate: regular rate Rhythm: regular rhythm Heart sounds: S1 normal heart sound present and S2 normal heart sound present Neuro Other: - romberg, can tandem walk, can walk and turn, can rise from sitting to standing, passed whisper test General: patient oriented x3 Extrem Other: bilat feet: no sensation with use of monofilament or 128hz tuning fork Psych Appearance: grossly normal Mental Status: mental status grossly normal Speech and movement: Normal speech and movement present Affect: normal affect Attitude: cooperative Thought process: Normal thought process present Thought content: Normal thought content present Insight: Good insight present (Psych) Judgement: Good judgement present (Psych) Assessment & Plan Assessment & Plan (1) Smoker: Code(s): F17.200 - Nicotine dependence, unspecified, uncomplicated Plan: referring to thoracics for LDCT (2) Peripheral neuropathy: Code(s): G62.9 - Polyneuropathy, unspecified Plan: hopefully she will begin to get sensation back within time (3) Screening for cervical cancer: Code(s): Z12.4 - Encounter for screening for malignant neoplasm of cervix Plan: referred Plan The patient agreed to the use of a medical assistant ob gyn for this encounter. Scribed for JACQUELINE Cruz-BC by Concha Christensen medical assistant ob gyn, on 10/19/2023 at 13:45 EST. Orders: Orders MM screening mammo BI Today Z12.31 - Encounter for screening mammogram for malignant neoplasm of breast Comprehensive [place]. Panel Fast Today F17.200 - Nicotine dependence, unspecified, uncomplicated Vitamin D 25-OH Total Today F17.200 - Nicotine dependence, unspecified, uncomplicated Complete Blood Count Auto Diff Today F17.200 - Nicotine dependence, unspecified, uncomplicated TSH reflex Free T4 Today F17.200 - Nicotine dependence, unspecified, uncomplica krishan UA CC w/rflx Micro + Cult Today F17.200 - Nicotine dependence, unspecified, uncomplicated Lipid Panel Today F17.200 - Nicotine dependence, unspecified, uncomplicated Referrals Thoracic/General Surgery Referral F17.200 - Nicotine dependence, unspecified, uncomplicated [employer] Referral Z12.4 - Encounter for screening for malignant neoplasm of cervix Quality Reporting (2019) Depression/Bipolar (159/160/161/177) PHQ-9: Total score: 3 Coding Level of Care Code Medicare First (G0438) Est Pt Level 3 (21012) Diagnoses Smoker F17.200 Peripheral neuropathy G62.9 Screening for cervical cancer Z12.4 CPT Codes Advance Care Planning - Time spent: 1-15 minutes, on File ([id number]) Advance Care Planning Forms completed: Health Care Proxy (pt reports having at home, will bring in copy (blank copy also given to pt)), MOLST (form explained and given to pt) and Living will (not done, explained importance of this) Time spent: 1-15 minutes, on File Actual minutes spent: 15
== END 2023-10-19 14:14 | disposition home or self-care (01) ==
PROVIDERS: Visit Provider Nurse Practitioner Family
DX: Z00.00 Encounter for general adult medical examination without abnormal findings (principal); F17.200 Nicotine dependence, unspecified, uncomplicated; G62.9 Polyneuropathy, unspecified
CPT/HCPCS: 1123F; G0438

== ENCOUNTER 2024-01-27 11:19 | Outpatient (AMB) | payer OTHER, MEDICAID, SELFPAY ==
--- NOTE | 2024-01-27 08:04 | A.OFFVIS_ITS ---
Intake Visit Reasons: Former Smoker Intake Note: Initial visit for this 54yo former smoker with a 25PYH. Patient started smoking at age 20 for 33 years at 1/2-1ppd. She quit 05/2022. . Does admit to marijuana use. Denies second hand smoke exposure. Denies exposure to chemicals or substances like asbestos. . Reports family history of lung cancer paternal grandmother in her 80's. Reports personal history pancreatic cancer - Adenocarcinoma - Dx 2021. (T2N0 s/p Whipple 02/2022, neoadjuvant Folfirinox and Chemo/Radiation) Denies chest CT in last year. . Denies recent travel outside the [place]. Denies recent respiratory illness or recent hospitalization for respiratory issues. Reports testing positive for COVID. Admits receiving COVID Vaccine. x 3. . Denies fever, chills, new/worsening cough, hemoptysis, hoarseness or dysphagia. Denies significant chest pain, significant dyspnea or unintentional weight loss. Patient Lung Cancer Screening Questionnaire reviewed with patient by provider. . Shared Decision Making Completed. Patient meets criteria. Discussed in detail with patient, the risk vs benefit of LDCT screening. Patient consents to proceed with scan. Discussed and encouraged continued smoking cessation. Allergies No Known Allergies [No Known Allergies*] Allergy (Verified 10/19/23 13:48) [facility] Medical History (Updated 01/27/24 @ 11:33 by Zenia Chilel PA-C) Adenocarcinoma of pancreas (~2021) Right thyroid nodule Dyslipidemia Microscopic hematuria Kidney stones Personal history of nicotine dependence Surgical History (Updated 01/27/24 @ 11:33 by Zenia Chilel PA-C) History of tonsillectomy History of tubal ligation History of ERCP History of Whipple procedure (~02/2022) Family History (Updated 12/29/23 @ 10:14 by Zenia Chilel PA-C) Father Pancreatic cancer Mother Pancreatic cancer Social History (Updated 01/27/24 @ 11:34 by Zenia Chilel PA-C) Household Members: Children Housing: Apartment Do you presently have visiting nurse or other home services: No Alcohol intake: never Patient Tobacco Use Status: Former Tobacco user Tobacco use type: Cigarette Years Smoked: (onset 20yo, 1/2-1ppd x 33yrs, 25pyh - quit 05/2022) Second Hand Smoke Exposure: No Substance Use Type: Marijuana Advance Directives Date on File: 01/24/21 service: No Current occupational status: unemployed 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 - Patient meets criteria for LDCT for lung cancer screening purposes and is asymptomatic. - Smoking cessation counseling offered. Patients can always call [phone]. - Will arrange for a LDCT scan of the chest for screening purposes at [facility]. - Risks, benefits, and alternatives were discussed in detail and the patient agrees to proceed. - Risks discussed include but are not limited to: radiation exposure, anxiety during testing and while awaiting results, false negatives, false positives and possibility of additional intervention such as further imaging or surgical procedures for benign disease. - Benefits are obviously detection of lung cancer at an early stage which can lead to improved outcomes. - Discussed the importance of screening program compliance with adherence to yearly LDCT scan as scheduled - or sooner interval scans for personalized screening regimen. - Discussed follow up plan. Our office will send a letter discussing results and if needed set up phone call and office visit based on CT findings. - Patient educated on results categorization and the management decisions for suspicious findings potentially found on the screening LDCT scan. Any patient with a Lung RADS score of 3 or 4 will be reviewed by a multidisciplinary team at [facility] to form a plan of action in regards to scan findings. - If further work up is warranted for a suspicious lung finding this will be followed by the Lung Cancer Screening program in conjunction with the Thoracic Surgery Department at [facility]. - A copy of the office note and LDCT will be sent to the patient's PCP - as well as documentation on any associated further plans of care. - Incidental findings on LDCT are the PCP's responsibility. These findings are indicated with an S finding on the LDCT Assessment. A note discussing the findings will be sent to the PCP who is then responsible for further management. - All questions answered.? Coding Level of Care Code Lung Cancer Screening G0296 Diagnoses Personal history of nicotine dependence Z87.891
== END 2024-01-27 11:33 | disposition home or self-care (01) ==
PROVIDERS: PCP Nurse Practitioner Family; Visit Provider Physician Assistant Medical
DX: Z87.891 Personal history of nicotine dependence (principal)
CPT/HCPCS: G0296

== ENCOUNTER 2024-01-27 11:34 | Outpatient (REF) | payer MEDICARE, SELFPAY ==
--- NOTE | ~2024-01-27 | CT_ITS ---
EXAMINATION: CT LOW-DOSE SCREENING CHEST WITHOUT CONTRAST CLINICAL INFORMATION: Personal history of nicotine dependence. Former smoker. The patient has a 26 pack-year history of smoking, having quit 1 year ago. COMPARISON: X-ray chest July 30, 2021. CT chest July 16, 2014. TECHNIQUE: Multidetector volumetric CT imaging of the chest is performed on a Siemens SOMATOM Definition scanner without contrast using low dose technique. Additional 2D coronal and sagittal reformatted images and axial 3D maximum intensity projection (MIP) images are generated on the CT workstation. This CT examination was performed using dose optimization techniques as appropriate, variously including the following: *Automated exposure control *Adjustment of mA and/or kV according to patient size (this includes techniques or standardized protocols for targeted exams where dose is matched to indication/reason for exam; i.e. extremities or head) *Use of iterative reconstruction technique TOTAL EXAM DLP: 35 mGy-cm. CTDIvol: 1.0 mGy. FINDINGS: PULMONARY NODULES: No suspicious pulmonary nodules. LUNGS: Lungs bilaterally symmetrically expanded. No significant emphysematous changes are present. There is diffuse mild bronchial thickening without bronchiectasis. There is right lower lobe and lingular scarring. No effusion or pneumothorax. Central airways patent. MEDIASTINUM: No mediastinal, hilar or axillary adenopathy or free fluid collection. CORONARY ARTERY CALCIFICATION: Minimal. THYROID GLAND: Unremarkable to the extent seen. CARDIOVASCULAR STRUCTURES: Aortic and heart size normal. No pericardial effusion. CHEST WALL/AXILLA: Unremarkable. UPPER ABDOMEN: There is a partially imaged right upper pole renal calculus present (3:62), similar to the prior CT scan (4:121). At that time, at least 3 renal calculi could be seen. Otherwise, the Included portions of the solid organs in the upper abdomen unremarkable on noncontrast imaging. OSSEOUS STRUCTURES: No suspicious focal findings. CT/CT lung screening IMPRESSION: 1. No evidence of pulmonary malignancy. 2. Incidental note made of mild bronchial thickening and right renal calculus. ASSESSMENT: 1. Lung-RADS Category 1: Negative. There are no nodules or there are definitely benign nodules. N/A 2. Lung-RADS Category S: Negative. There are no clinically significant or potentially clinically significant findings not related to the lungs requiring urgent additional evaluation. RECOMMENDATION: Continued routine annual low-dose CT lung screening in 1 year is recommended. An order for CT CHEST LOW DOSE CANCER SCREENING ([id number]) can be placed. Electronically signed by: Mcihael Kwan MD 03/26/2024 08:02 AM YUSUF JORDAN
== END 2024-01-27 11:35 | disposition home or self-care (01) ==
LOC: HO.CT 11:34
PROVIDERS: PCP Nurse Practitioner Family; Visit Provider Physician Assistant Medical
DX: Z12.2 Encounter for screening for malignant neoplasm of respiratory organs (principal); Z87.891 Personal history of nicotine dependence
CPT/HCPCS: 71271; G0296

== ENCOUNTER 2024-05-04 11:05 | Outpatient (REF) | payer MEDICARE, SELFPAY ==
--- OUTSIDE RECORDS SUMMARY | 2024-05-04 11:07 | XMS_ITS | Patient Health Record ---
Author Organization [facility] Address [address] [place] [id number] Care Team Providers Care Cdl Program Coordinator Name Role Phone KADY NICOLE Primary Care Provider Miah Ponce [phone] ALLERGIES No Known Allergies REASON FOR REFERRAL No Information MEDICATIONS Medication SIG (Take, Route, Frequency, Duration) Notes Start Date End Date Status QUEtiapine Fumarate 25 MG with 300 mg ta blets Orally as directed Active Atorvastatin Calcium 10 MG Oral for 90 Active Omeprazole 20 MG 1 capsule 30 minutes before morning meal Orally Once a day for 30 day(s) Not-Taking Vitamin D3 Active Zofran 4 MG 1 tablet Orally Q 4- 6 hours prn nausea for 30 day(s) 05/27/2021 Active Vitamin B6 50 MG 1 tablet Orally for 30 day(s) Active Zofran 4 MG 1 tab Orally qid for as needed Active Dicyclomine HCl 10 MG TAKE 1 TO 2 CAPSUL ES BY MOUTH EVERY 6 HOURS FOR ABDOMINAL DISCOMFORT OR BLOATING FOR 30 DAYS for 90 Active IMMUNIZATIONS Vaccine Route Administration Date Status Comme nts Influenza Unknown 02/24/2021 Refused SOCIAL HISTORY Tobacco Use: Social History Observation Description Date Details (start date - stop date) Current Smoker NA - NA Sex Assigned At : Social History Observation Description Sex Assigned At Unknown Tobacco Use/Smoking Question Answer Notes Patient is a current smoker How many cigarettes a day do you smoke? 5 or les s Alcohol Screen Question Answer Notes Did you have a drink containing alcohol in the p ast year? No Points 0 Interpretation Negative PROBLEMS Problem Type ICD Code Onset Dates Problem Status W/U Status Risk SNOMED Code Notes Problem Diarrhea, unspecified type (R19.7) Active confirmed 45816278 Problem Idiopathic acute pancreatitis without infection or necrosis (K85.00) Active confirmed 825916696 Problem Abdominal pain, epigastric (R10.13) Active confirmed 79482067 Problem Nausea (R11.0) Active confirmed 0377966 07 Problem Weight loss (R63.4) Active confirmed 24184605 Problem Family history of pancreatic cancer (Z80.0) Active confirmed 105920731 Problem Biliary stricture (K83.1) Active confirmed Biliary stricture (702213931) Problem Malignant neoplasm of head of pancreas (C25.0) Active confirmed Carcinoma of head of pancreas (disorder) (918073489) PLAN OF TREATMENT Pending Test Test Name Order Date CHEM 7 PROFILE 02/24/2021 CHEM 7 PROFILE 05/27/2021 BUN 03/31/2021 CREATININE 03/31/2021 LIVER PROFILE 03/31/2021 LIVER PROFILE 02/24/2021 LIVER PROFILE 05/27/2021 AMYLASE 05/27/2021 LIPASE 05/27/2021 CBC w DIFF 05/27/2021 CBC w DIFF 02/24/2021 CT ABD & PELVIS WITH CONTRAST 02/24/2021 MRI ABD W&WO CONTRAST 05/27/2021 Lipase 03/31/2021 Next Appt Details Provider Name:Miah Kendrick , 08/17/2024 03:00:00 PM, [address], [address], [place], [address], Insurance Providers Payer Name Payer Address Payer Phone Subscriber Number Group Number Insured Name Patient Relationship to Insured Coverage Start Date Coverage End Date [facility] [address] [address] [place] [phone] [id number] PARAMJIT STARKEY Self - patient is the insured [facility] [address] [place] [address] [id number] PARAMJIT STARKEY Self - patient is the insured MEDICAL (GENERAL) HISTORY Medical History History ICD Code Depression Hyperlipidemia Idiopathic pancreatitis in S eptember of 2020 with a negative workup--see consult from January 2021 in the document section Alcohol abuse with sobriety for 15 years Denies MO,DM,CVA,Lung disease,renal dise ase Surgical History Surgery Date(Month/Year) Tubal ligation
[2024-05-04 13:11] LABS: Appearance Urine Clear; Color Urine Yellow; Glucose Urine UA Negative (Negative); Leukocyte Esterase Urine Negative (Negative); Nitrite Urine Negative (Negative); PH 5.5 (5.0-9.0); UMIC TRIGGER UACC YES; Urine Blood Moderate (2+) (Negative); Urine Ketones Negative (Negative); Urine Protein Negative (Neg-Trace)
[2024-05-04 13:11] LABS: MANUAL DIFF FLAG NO
[2024-05-04 13:25] LABS: Bacteria Urine None Seen (None Seen); Hyaline Casts Urine 0-2 /LPF (0-2); RBC Urine 0-2 /HPF (0-2); Squamous Epithelial Cell Urine 0-2 /HPF (0-2); WBC Urine 0-5 /HPF (0-5)
[2024-05-04 13:27] LABS: Basophils Percent Auto 0.5 % (0-2); Eosinophils Absolute Auto 0.1 X10*3/uL (0.0-0.4); Eosinophils Percent Auto 1.1 % (0-4); Hematocrit 40.4 % (37.0-47.0); Hemoglobin 13.4 g/dl (12.0-16.0); Imm Gran Abs Auto 0.01 X10*3/uL (0.00-0.03); Imm Gran Pct Auto 0.2 % (0.0-0.4); Lymphocytes Absolute Auto 1.9 X10*3/uL (1.2-4.9); Lymphocytes Percent Auto 34.5 % (20-40); Mean Corpuscular HGB Conc 33.2 g/dl (31.0-35.0); Mean Corpuscular Hemoglobin 32.3 pg (27.0-33.0); Mean Corpuscular Volume 97.3 fL (80.0-98.0); Mean Platelet Volume 10.7 fL (9.4-12.3); Monocytes Absolute Auto 0.4 X10*3/uL (0.1-1.2); Monocytes Percent Auto 6.5 % (2-11); Neutrophils Absolute Auto 3.2 x10*3/uL (2.0-8.3); Neutrophils Percent Auto 57.2 % (45-73); Platelet Count 192 X10*3/uL (160-400); Red Blood Count 4.15 X10*6/uL (4.20-5.50); White Blood Count 5.6 X10*3/uL (4.8-10.8)
[2024-05-04 14:06] LABS: Alanine Aminotransferase 20 U/L (0-31); Alkaline Phosphatase 165 U/L (39-117); Anion Gap 10 (12-20); Aspartate Amino Transferase 25 U/L (5-31); Bilirubin Total 0.3 mg/dL (0.0-1.0); Blood Urea Nitrogen 9 mg/dL (9-16); Calcium 9.4 mg/dL (8.4-10.2); Carbon Dioxide 27 mmol/L (22-29); Chloride 109 mmol/L (96-108); Cholesterol 149 mg/dL (<200); Estimated Glomerular Filt Rate > 60; Glucose Fasting 97 mg/dL (60-99); HDL Cholesterol 51 mg/dL (>40); LDL Cholesterol Calculated 82 mg/dL (<100); Potassium 4.3 mmol/L (3.3-5.1); Sodium 142 mmol/L (135-145); Total Protein 6.7 g/dL (6.5-8.0); Triglycerides 84 mg/dL (<150)
[2024-05-04 14:09] LABS: TSH reflex Free T4 1.03 uIU/mL (0.32-4.0); Vitamin D 25-OH Total 26.2 ng/mL (>30)
[2024-05-07 11:29] LABS: TS Negative Control Passed; TS Panel A 1; TS Panel B 1; TS Positive Control Passed; TSpotTB Negative (Negative)
== END 2024-05-04 11:06 | disposition home or self-care (01) ==
LOC: HO.HMGCLDS 11:05
PROVIDERS: PCP Nurse Practitioner Family; Visit Provider Nurse Practitioner Family
DX: F17.200 Nicotine dependence, unspecified, uncomplicated (principal); Z11.1 Encounter for screening for respiratory tuberculosis
CPT/HCPCS: 36415; 80053; 80061; 81001; 82306; 84443; 85025; 86481